=== PATIENT | female | born 1945 | race Caucasian/White ===

== ENCOUNTER 2020-06-19 10:20 | Outpatient (REF) | payer MEDICARE, SELFPAY ==
--- NOTE | 2020-06-19 10:27 | MM_ITS ---
EXAMINATION: MM SCREENING DIGITAL BREAST TOMOSYNTHESIS, BILATERAL CLINICAL INFORMATION: Screening. Asymptomatic. The lifetime risk of breast cancer based on the Tyrer-Cuzick Model is 3%. COMPARISON: Mammography: 12/16/2018, 07/14/2017 TECHNIQUE: Digital breast tomosynthesis is performed in both the craniocaudal and mediolateral oblique views along with computer-aided detection (CAD). Synthesized 2D images are generated from the tomosynthesis. FINDINGS: There are scattered areas of fibroglandular density (ACR BI-RADS breast composition Category b). There are no significant masses, abnormal calcifications, or other abnormalities. The skin contours are smooth. No significant changes. IMPRESSION: No mammographic evidence of malignancy. ASSESSMENT: BI-RADS 1: Negative RECOMMENDATION: Routine annual mammography screening. This patient's information was entered into a reminder system with a target due date for their next mammogram.
== END 2020-06-19 10:21 | disposition home or self-care (01) ==
LOC: HO.MAMMO 10:20
PROVIDERS: PCP Internal Medicine; Visit Provider Internal Medicine
DX: Z12.31 Encounter for screening mammogram for malignant neoplasm of breast (principal)
CPT/HCPCS: 77063; 77067

== ENCOUNTER → 2020-11-21 12:22 | Outpatient (BNVA) | payer MEDICARE, SELFPAY | PROVIDERS: PCP Internal Medicine; Referring Provider Internal Medicine; Visit Provider Internal Medicine Endocrinology, Diabetes & Metabolism | DX: E11.29 Type 2 diabetes mellitus with other diabetic kidney complication (principal); E11.3553 Type 2 diabetes mellitus with stable proliferative diabetic retinopathy, bilateral; E11.42 Type 2 diabetes mellitus with diabetic polyneuropathy; E11.21 Type 2 diabetes mellitus with diabetic nephropathy; Z79.4 Long term (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; R80.9 Proteinuria, unspecified; E78.5 Hyperlipidemia, unspecified; I10 Essential (primary) hypertension | CPT/HCPCS: 82947; 99212 ==

== ENCOUNTER 2020-12-05 09:36 | Outpatient (REF) | payer MEDICARE, SELFPAY ==
[2020-12-05 10:59] LABS: Alanine Aminotransferase 11 U/L (0-31); Albumin Level 4.5 g/dL (3.5-5.0); Alkaline Phosphatase 78 U/L (39-117); Anion Gap 14 (12-20); Aspartate Amino Transferase 17 U/L (5-31); Bilirubin Total 0.5 mg/dL (0.0-1.0); Carbon Dioxide 33 mmol/L (22-29); Chloride 101 mmol/L (96-108); Cholesterol 136 mg/dL; Estimated Glomerular Filt Rate > 60; Glucose Fasting 91 mg/dL (60-99); HDL Cholesterol 63 mg/dL; LDL Cholesterol Calculated 46 mg/dl; Sodium 143 mmol/L (135-145); Total Protein 7.1 g/dL (6.5-8.0); Triglycerides 136 mg/dL
[2020-12-05 11:02] LABS: Blood Urea Nitrogen 19 mg/dL (9-16); Calcium 10.1 mg/dL (8.4-10.2)
[2020-12-05 11:13] LABS: Thyroid Stimulating Hormone 0.65 uIU/mL (0.32-4.0)
[2020-12-05 17:28] LABS: Creatinine Urine 91.22 mg/dL
[2020-12-06 02:37] LABS: LDL Cholesterol Direct 45 mg/dL (<100)
[2020-12-06 04:17] LABS: Vitamin B12 571 pg/mL (200-900)
== END 2020-12-05 09:37 | disposition home or self-care (01) ==
LOC: HO.LAB 09:36
PROVIDERS: PCP Internal Medicine; Visit Provider Internal Medicine Endocrinology, Diabetes & Metabolism
DX: E11.9 Type 2 diabetes mellitus without complications (principal); R80.9 Proteinuria, unspecified; Z79.4 Long term (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
CPT/HCPCS: 36415; 80053; 80061; 82043; 82607; 83721; 84439; 84443

== ENCOUNTER → 2021-07-05 10:52 | Outpatient (BNVA) | payer MEDICARE, SELFPAY | PROVIDERS: PCP Internal Medicine; Visit Provider Nurse Practitioner Gerontology | DX: E11.29 Type 2 diabetes mellitus with other diabetic kidney complication (principal); E11.3553 Type 2 diabetes mellitus with stable proliferative diabetic retinopathy, bilateral; E11.42 Type 2 diabetes mellitus with diabetic polyneuropathy; E11.21 Type 2 diabetes mellitus with diabetic nephropathy; E78.5 Hyperlipidemia, unspecified; I10 Essential (primary) hypertension; R80.9 Proteinuria, unspecified; Z79.4 Long term (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 | CPT/HCPCS: 82947; 83036; 99212 ==

== ENCOUNTER 2022-01-15 07:22 | Outpatient (REF) | payer MEDICARE, SELFPAY ==
[2022-01-15 08:20] LABS: Creatinine Urine 63.91 mg/dL; Microalbum/Creatinine Ratio Ur 45.3 ug/mg cr
[2022-01-15 08:32] LABS: Alanine Aminotransferase 12 U/L (0-31); Albumin Level 4.2 g/dL (3.5-5.0); Alkaline Phosphatase 70 U/L (39-117); Anion Gap 12 (12-20); Aspartate Amino Transferase 18 U/L (5-31); Bilirubin Total 0.5 mg/dL (0.0-1.0); Blood Urea Nitrogen 21 mg/dL (9-16); Calcium 10.1 mg/dL (8.4-10.2); Carbon Dioxide 30 mmol/L (22-29); Chloride 102 mmol/L (96-108); Cholesterol 139 mg/dL; Estimated Glomerular Filt Rate > 60; Glucose Fasting 101 mg/dL (60-99); HDL Cholesterol 60 mg/dL; LDL Cholesterol Calculated 57 mg/dl; Sodium 139 mmol/L (135-145); Total Protein 6.8 g/dL (6.5-8.0); Triglycerides 110 mg/dL
[2022-01-15 08:41] LABS: Free T4 (Free Thyroxine) 1.06 ng/dL (0.71-1.85); Thyroid Stimulating Hormone 1.61 uIU/mL (0.32-4.0); Vitamin D 25-OH Total 33.5 ng/mL (>30)
[2022-01-15 13:49] LABS: Vitamin B12 709 pg/mL (200-900)
[2022-01-16 21:54] LABS: LDL Cholesterol Direct 54 mg/dL (<100)
== END 2022-01-15 07:23 | disposition home or self-care (01) ==
LOC: HO.LAB 07:22
PROVIDERS: PCP Internal Medicine; Visit Provider Nurse Practitioner Gerontology
DX: E11.29 Type 2 diabetes mellitus with other diabetic kidney complication (principal); R80.9 Proteinuria, unspecified; E55.9 Vitamin D deficiency, unspecified; Z79.4 Long term (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
CPT/HCPCS: 36415; 80053; 80061; 82043; 82306; 82607; 83721; 84439; 84443

== ENCOUNTER 2022-04-01 12:00 | Outpatient (REF) | payer MEDICARE, SELFPAY ==
--- NOTE | ~2022-04-01 | MM_ITS ---
EXAMINATION: MM SCREENING DIGITAL BREAST TOMOSYNTHESIS, BILATERAL CLINICAL INFORMATION: Screening. Asymptomatic. The lifetime risk of breast cancer based on the Tyrer-Cuzick Model is 3%. COMPARISON: Mammography: 06/19/2020, 12/16/2018, 07/14/2017 TECHNIQUE: Digital breast tomosynthesis is performed in both the craniocaudal and mediolateral oblique views along with computer-aided detection (CAD). Synthesized 2D images are generated from the tomosynthesis. FINDINGS: There are scattered areas of fibroglandular density (ACR BI-RADS breast composition Category b). There are no significant masses, abnormal calcifications, or other abnormalities. Parenchymal pattern is similar to prior studies. MM/MM tomosynthesis screening BI IMPRESSION: No mammographic evidence of malignancy. ASSESSMENT: BI-RADS 1: Negative RECOMMENDATION: Routine annual mammography screening. This patient's information was entered into a reminder system with a target due date for their next mammogram.
== END 2022-04-01 12:01 | disposition home or self-care (01) ==
LOC: HO.MAMMO 12:00
PROVIDERS: PCP Internal Medicine; Visit Provider Internal Medicine
DX: Z12.31 Encounter for screening mammogram for malignant neoplasm of breast (principal)
CPT/HCPCS: 77063; 77067

== ENCOUNTER 2024-05-18 12:39 | Outpatient (AMB) | payer MEDICARE, SELFPAY ==
--- NOTE | 2024-05-18 12:40 | A.OFFPC_ITS ---
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 Allergies Iodinated Contrast Media [IV DYE, IODINE CONTAINING] Allergy (Intermediate, Unverified 05/18/24 12:43) DYSPNEA IV CONTRAST Allergy (Unknown, Uncoded 05/18/24 12:43) SHORTNESS OF BREATH WHEN IV DYE WAS GIVEN Medication List - Last Reconciled 05/18/24 by Harshad Castle MD aspirin (Adult Low Dose Aspirin) 81 mg PO DAILY cyanocobalamin (vitamin B-12) 100 mcg PO QAM dulaglutide (Trulicity) 0.75 mg (0.5 mL) subcut QWEEK 90 days gabapentin 100 mg PO DAILY insulin glargine (Lantus Solostar U-100 Insulin) 7 units (0.07 mL) subcut DAILY 90 days lisinopril 10 mg PO DAILY 90 days metformin ER 1,000 mg (2 x 500 mg) PO BID omeprazole 20 mg PO DAILY pen needle, diabetic (BD Jennifer 2nd Gen Pen Needle) Once a day pioglitazone 30 mg PO DAILY 90 days rosuvastatin 40 mg PO DAILY 90 days Tobacco use date assessed: 05/18/24 Fall risk assessment: No Falls in past year Last assessed Fall Risk: 05/18/24 Dental Screening Dental Screen Date: 05/18/24 Did you have a dental visit in the last 12 months?: Yes Did you have a dental problem in the last 6 months where you did not have access to dental care?: No Was dental information given to patient?: Patient has dentist 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 and pioglitazone 30 mg daily Lipid disorder: Treated with a rosuvastatin 40 mg Blood pressure is stable with lisinopril 10 mg Diabetic neuropathy treated with gabapentin 100 mg as needed Due for labs Mammogram was February of this year at [facility] as per patient it was normal She is due for colonoscopy, I have placed a referral to Gastroenterology Complaining of bilateral shoulder pain which is chronic for the patient She is requesting orthopedic referral which was placed as well All medication refills sent Lab order placed to be done fasting Eye exam was today Foot exam was February of this year Patient is to return in 3 months for follow-up appointment [facility] Medical History Diabetic nephropathy associated with type 2 diabetes mellitus Diabetic polyneuropathy associated with type 2 diabetes mellitus Diabetes type 2, controlled Proliferative diabetic retinopathy [facility]FP (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 Diabetes type 2, uncontrolled Dyslipidemia Hypertension Surgical History Hx of cholecystectomy Hx of hysterectomy Hx of carpal tunnel repair Hx of tonsillectomy Family History Son Family history of thyroid problem Mother No problems noted. Father No problems noted. Social History Household Members: Spouse Housing: Apartment Alcohol intake: never Patient Tobacco Use Status: Former Tobacco user Current occupational status: unemployed Cognitive needs: No Hearing needs: Yes Vision needs: Yes Questionnaire PHQ-9 Over the last 2 weeks, how often have you been bothered by any of the following problems? 1. Little interest or pleasure in doing things: several days 2. Feeling down, depressed, or hopeless: several days 3. Trouble falling or staying asleep, or sleeping too much: not at all 4. Feeling tired or having little energy: several days 5. Poor appetite or overeating: several days 6. Feeling bad about yourself - or that you are a failure or have let yourself or your family down: not at all 7. Trouble concentrating on things, such as reading the newspaper or watching television: not at all 8. Moving or speaking so slowly that other people could have noticed. Or the opposite - being so fidgety or restless that you have been moving around a lot more than usual: not at all 9. Thoughts that you would be better off or of hurting yourself in some way: not at all Total score: 4 Depression Screening Interpretation: Negative Depression Screening Done: Yes 88138 - PHQ-9 Billing: Yes Source: Developed by Drs. Jorge Guzman, Madina Hinojosa, Luke Browning and colleagues, with an educational lissy from [employer]. Thrive Questionnaire Date Thrive assessed: 05/18/24 I am a: Patient What is your living situation today?: I have a steady place to live Within the past 12 months, did the food you bought not last and you didn't have the money to get more?: Never true Within the past 12 months, did you worry whether your food would run out before you got money to buy more?: Never true Do you have trouble paying for medicines?: No Do you have trouble getting transportation to medical appointments?: No Do you have trouble paying your heating and electricity bill?: No Do you have trouble taking care of your child, family member or friend?: No Do you have trouble with day-to-day activities such as bathing, preparing meals, shopping, managing finances, etc.?: I choose not to answer this question Are you interested in more education?: I choose not to answer this question Please select the resources that you would like help with: Care for elder or disabled Currently or been in a relationship where the following occur: No concerns reported THRIVE Score: 0 AUDIT C Alcohol Use Questionnaire (AUDIT-C) 1. How often do you have a drink containing alcohol?: Never Total Score: 0 JOEY-7 AMB Questionnaire JOEY-7 Date JOEY - 7 assessed: 05/18/24 Feeling nervous, anxious, or on edge: 1 = Several days Not being able to stop or control worryin = Several days Worrying too much about different things: 1 = Several days Trouble relaxin = Several days Being so restless that it is hard to sit still: 0 = Not at all Becoming easily annoyed or irritable: 0 = Not at all Feeling afraid as if something awful might happen: 0 = Not at all Total JOEY-7 score (0-4 normal; 5-9 mild; 10-14 moderate; 15-21 severe): 4 Source: Developed by Drs. Jorge Guzman, Madina Hinojosa, Luke Browning and colleagues, with an educational lissy from [employer]. JEOY-7 Assessment Billing JOEY-7 Assessment Tool: JOEY-7 Assessment 03175 Review of Systems Const Denies chills, Denies fever(s) and Denies headache(s) ENT Denies headache(s), Denies nasal discharge, Denies nasal obstruction, Denies odynophagia and Denies sinus pain Card Denies chest pain at rest and Denies chest pain with activity Resp Denies cough and Denies hemoptysis GI Denies diarrhea, Denies odynophagia, Denies vomiting and Denies hematemesis Reports as per HPI Musc Denies abnormal gait Skin/Breast Reports as per HPI Neuro Denies Neuro-related abnormal movements, Denies Abnormal speech present, Denies abnormal gait and Denies headache(s) Psych Denies mood swings and Denies paranoia Endo Reports as per HPI Khurram/Lymph Reports as per HPI Aller/Immun Reports as per HPI Physical exam (Primary Care) Vital Signs: Last Vital Signs Pulse 78 05/18/24 12:43 BP 130/80 05/18/24 12:43 Pulse Ox 98 05/18/24 12:43 Oxygen Delivery Method Room Air 05/18/24 12:43 Tobacco/Smoking Status: Tobacco use Status Tobacco use date assessed 05/18/24 05/18/24 12:47 Patient Tobacco Use Status Former Tobacco user 05/18/24 12:42 PHQ-9: PHQ-9 Score PHQ-9: Total score 4 05/18/24 13:15 Depression Screening Interpretation: Negative Thrive Assessment: Date of Thrive Assessment Date Thrive assessed 05/18/24 05/18/24 12:47 Currently or been in a relationship where the following occur: No concerns reported Const General: cooperative, comfortable and no acute distress Orientation/consciousness: patient oriented x3 HENMT Head: Yes normocephalic and Yes atraumatic Eyes General: appearance normal, both eyes and all related structures Pupils: Equal, round and reactive pupils present EOM: EOMs intact bilaterally Neck Neck: Yes supple and No lymphadenopathy Thyroid: Thyroid normal Lymphatic: no lymphadenopathy noted Chest Breast/axilla palpation: normal palpation of the breasts Resp Effort & Inspection: normal respiratory effort and able to speak in complete sentences Auscultation: clear to auscultation bilaterally Cardio Heart sounds: S1 normal heart sound present and S2 normal heart sound present GI Palpation (GI): Soft to palpation and nontender Auscultation: normal bowel sounds General: Yes no CVA tenderness Back/Spine/Pelvis Back: no CVA tenderness Skin General skin exam: elasticity normal and turgor normal Neuro General: patient oriented x3 and gait normal Cranial nerves: Yes Equal, round and reactive pupils present Speech: No Abnormal speech present Coordination: Romberg test negative Extrem Other: Limited range of motion of both shoulders General: No edema Assessment and Plan Assessment & Plan (1) Establishing care with new doctor, encounter for: Code(s): Z76.89 - Persons encountering health services in other specified circumstances (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: Code(s): Z79.4 - [facility] (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 (3) Diabetes type 2, controlled: Code(s): E11.9 - Type 2 diabetes mellitus without complications Qualifiers: Diabetes mellitus complication detail: with microalbuminuria Diabetes mellitus complication status: with kidney complications Diabetes mellitus 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 insulin use: with residential use Qualified Code(s): E11.29 - Type 2 d iabetes mellitus with other diabetic kidney complication; R80.9 - Proteinuria, unspecified; Z79.4 - 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 (4) Bilateral shoulder pain: Code(s): M25.511 - Pain in right shoulder; M25.512 - Pain in left shoulder Qualifiers: Chronicity: chronic Qualified Code(s): M25.511 - Pain in right shoulder; M25.512 - Pain in left shoulder; G89.29 - Other chronic pain (5) Diabetic polyneuropathy associated with type 2 diabetes mellitus: Code(s): E11.42 - Type 2 diabetes mellitus with diabetic polyneuropathy (6) Diabetic nephropathy associated with type 2 diabetes mellitus: Code(s): E11.21 - Type 2 diabetes mellitus with diabetic nephropathy (7) Hypertension: Code(s): I10 - Essential (primary) hypertension Qualifiers: Hypertension type: essential hypertension Qualified Code(s): I10 - Essential (primary) hypertension (8) Dyslipidemia: Code(s): E78.5 - Hyperlipidemia, unspecified (9) Colon cancer screening: Code(s): Z12.11 - Encounter for screening for malignant neoplasm of colon Plan Patient is a 78-year-old female came in today for establish with her son Patient is diabetic and is on Trulicity and long-acting insulin along with metformin 1 g b.i.d. and pioglitazone 30 mg daily Lipid disorder: Treated with a rosuvastatin 40 mg Blood pressure is stable with lisinopril 10 mg Diabetic neuropathy treated with gabapentin 100 mg as needed Patient also have a diabetic nephropathy, labs are needed to see how bad Due for labs Mammogram was February of this year at [facility] as per patient it was normal She is due for colonoscopy, I have placed a referral to Gastroenterology Complaining of bilateral shoulder pain which is chronic for the patient She is requesting orthopedic referral which was placed as well All medication refills sent Lab order placed to be done fasting Eye exam was today Foot exam was February of this year Patient is to return in 3 months for follow-up appointment 60 minute visit, [id number] with the patient, examination, medication refills Lab order Documentation, coordination of care Orders: Orders Comprehensive [place]. 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 Lipid Panel Today E11.21 - Type 2 diabetes mellitus with diabetic nephropathy, E11.29 - Type 2 diabetes mellitus with other diabetic kidney complication, E11.42 - Type 2 diabetes mellitus with diabetic polyneuropathy, E78.5 - Hyperlipidemia, unspecified, I10 - Essential (primary) hypertension, R80.9 - Proteinuria, unspecified, Z79.4 - [facility] (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 Vitamin D 25-OH (D2 and D3) Today E11.21 - Type 2 diabetes mellitus with diabetic nephropathy, E11.29 - Type 2 diabetes mellitus with other diabetic kidney complication, E11.42 - Type 2 diabetes mellitus with diabetic polyneuropathy, E78.5 - Hyperlipidemia, unspecified, I10 - Essential (primary) hypertension, R80.9 - Proteinuria, unspecified, Z79.4 - 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 Complete Blood Count Auto Diff Today E11.21 - Type 2 diabetes mellitus with diabetic nephropathy, E11.29 - Type 2 diabetes mellitus with other diabetic kidney complication, E11.42 - Type 2 diabetes mellitus with diabetic polyneuropathy, E78.5 - Hyperlipidemia, unspecified, I10 - Essential (primary) hypertension, R80.9 - Proteinuria, unspecified, Z79.4 - [facility] (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 Vitamin B12 Today E11.21 - Type 2 diabetes mellitus with diabetic nephropathy, E11.29 - Type 2 diabetes mellitus with other diabetic kidney complication, E11.42 - Type 2 diabetes mellitus with diabetic polyneuropathy, E78.5 - Hyperl ipidemia, unspecified, I10 - Essential (primary) hypertension, R80.9 - Proteinuria, unspecified, Z79.4 - [facility] (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 TSH reflex Free T4 Today E11.21 - Type 2 diabetes mellitus with diabetic nephropathy, E11.29 - Type 2 diabetes mellitus with other diabetic kidney complication, E11.42 - Type 2 diabetes mellitus with diabetic polyneuropathy, E78.5 - Hyperlipidemia, unspecified, I10 - Essential (primary) hypertension, R80.9 - Proteinuria, unspecified, Z79.4 - 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 Hemoglobin A1c Today E11.21 - Type 2 diabetes mellitus with diabetic nephropathy, E11.29 - Type 2 diabetes mellitus with other diabetic kidney complication, E11.42 - Type 2 diabetes mellitus with diabetic polyneuropathy, E78.5 - Hyperlipidemia, unspecified, I10 - Essential (primary) hypertension, R80.9 - Proteinuria, unspecified, Z79.4 - 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 Microalbumin, Random (w Creat) Today E11.21 - Type 2 diabetes mellitus with diabetic nephropathy, E11.29 - Type 2 diabetes mellitus with other diabetic kidney complication, E11.42 - Type 2 diabetes mellitus with diabetic poly neuropathy, E78.5 - Hyperlipidemia, unspecified, I10 - Essential (primary) hypertension, R80.9 - Proteinuria, unspecified, Z79.4 - 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 Referrals Orthopedics Referral M25.511 - Pain in right shoulder, M25.512 - Pain in left shoulder Gastroenterology Referral Z12.11 - Encounter for screening for malignant neoplasm of colon Medications: Refilled pioglitazone 30 mg PO DAILY 90 tabs 2RF 90 days E11.65 - Type 2 diabetes mellitus with hyperglycemia cyanocobalamin (vitamin B-12) 100 mcg PO QAM 90 tabs 3RF E11.65 - Type 2 diabetes mellitus with hyperglycemia dulaglutide (Trulicity) 0.75 mg (0.5 mL) subcut QWEEK 6.5 mL 1RF 90 days E11.29 - Type 2 diabetes mellitus with other diabetic kidney complication, R80.9 - Proteinuria, unspecified, Z79.4 - [facility] (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 insulin glargine (Lantus Solostar U-100 Insulin) 7 units (0.07 mL) subcut DAILY 15 mL 0RF 90 days E11.29 - Type 2 diabetes mellitus with other diabetic kidney complication, R80.9 - Proteinuria, unspecified, Z79.4 - 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 lisinopril 10 mg PO DAILY 90 tabs 3RF 90 days I10 - Essential (primary) hypertension metformin ER 1,000 mg (2 x 500 mg) PO BID 360 tabs 2RF E11.65 - Type 2 diabetes mellitus with hyperglycemia rosuvastatin 40 mg PO DAILY 90 tabs 0RF 90 days E78.5 - Hyperlipidemia, unspecified Coding Level of Care Code New Pt Level 5 (62909) Diagnoses Establishing care with new doctor, encounter for Z76.89 [facility] (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 Z79.4 Controlled type 2 diabetes mellitus with microalbuminuria, with long-term curre nt use of insulin E11.29; R80.9; Z79.4 Diabetes mellitus complication detail: with microalbuminuria Diabetes mellitus complication status: with kidney complications Diabetes mellitus 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
[2024-05-18 12:43] VITALS: BP 130/80; PULSE 78; O2SAT 98
== END 2024-05-18 13:11 | disposition home or self-care (01) ==
PROVIDERS: PCP Internal Medicine; Visit Provider Internal Medicine
DX: E11.29 Type 2 diabetes mellitus with other diabetic kidney complication (principal); Z79.4 Long term (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; E11.42 Type 2 diabetes mellitus with diabetic polyneuropathy; E11.21 Type 2 diabetes mellitus with diabetic nephropathy; Z76.89 Persons encountering health services in other specified circumstances; R80.9 Proteinuria, unspecified; M25.511 Pain in right shoulder; M25.512 Pain in left shoulder; G89.29 Other chronic pain; I10 Essential (primary) hypertension; E78.5 Hyperlipidemia, unspecified; Z12.11 Encounter for screening for malignant neoplasm of colon

== ENCOUNTER → 2024-05-18 12:39 | Outpatient (BNVA) | payer MEDICARE, SELFPAY | PROVIDERS: PCP Internal Medicine; Visit Provider Internal Medicine | DX: E11.29 Type 2 diabetes mellitus with other diabetic kidney complication (principal); E11.42 Type 2 diabetes mellitus with diabetic polyneuropathy; E11.21 Type 2 diabetes mellitus with diabetic nephropathy; E78.5 Hyperlipidemia, unspecified; I10 Essential (primary) hypertension; M25.511 Pain in right shoulder; M25.512 Pain in left shoulder; G89.29 Other chronic pain; R80.9 Proteinuria, unspecified; Z79.4 Long term (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 | CPT/HCPCS: 96127; 99202 ==

== ENCOUNTER 2024-06-09 10:51 | Outpatient (REF) | payer MEDICARE, SELFPAY | END 2024-06-09 10:52 | disposition home or self-care (01) | LOC: HO.HOSX 10:51 | PROVIDERS: Visit Provider Physician Assistant | DX: M25.512 Pain in left shoulder (principal); M25.511 Pain in right shoulder; M19.011 Primary osteoarthritis, right shoulder; M19.012 Primary osteoarthritis, left shoulder | CPT/HCPCS: 73030; 99202 ==

== ENCOUNTER 2024-06-09 13:31 | Outpatient (AMB) | payer MEDICARE, SELFPAY ==
--- NOTE | 2024-06-09 13:57 | MHC.OFFVIS ---
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 Patient reports her pain presented about 3 months ago when she was reaching for an item. Her pain is worse on her right shoulder. Her pain radiates from her shoulder up to her neck as well as down her arm. Limited ROM. Denies numbness or tingling. No previous tx. Chief Supply Chain Officer Required: Yes Chief Supply Chain Officer Services: Chief Supply Chain Officer Offered & Declined Accompanied by: Family/Other Allergies Iodinated Contrast Media [IV DYE, IODINE CONTAINING] Allergy (Intermediate, Unverified 05/18/24 12:43) DYSPNEA IV CONTRAST Allergy (Unknown, Uncoded 05/18/24 12:43) SHORTNESS OF BREATH WHEN IV DYE WAS GIVEN Medication List - Last Reconciled 06/09/24 by Mike Silva PA-C aspirin (Adult Low Dose Aspirin) 81 mg PO DAILY cyanocobalamin (vitamin B-12) 100 mcg PO QAM dulaglutide (Trulicity) 0.75 mg (0.5 mL) subcut QWEEK 90 days gabapentin 100 mg PO DAILY insulin glargine (Lantus Solostar U-100 Insulin) 7 units (0.07 mL) subcut DAILY 90 days lisinopril 10 mg PO DAILY 90 days metformin ER 1,000 mg (2 x 500 mg) PO BID omeprazole 20 mg PO DAILY pen needle, diabetic (BD Jennifer 2nd Gen Pen Needle) Once a day pioglitazone 30 mg PO DAILY 90 days rosuvastatin 40 mg PO DAILY 90 days HPI 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 She states she has limited ROM and pain in her bilateral shoulders that is worse on her right shoulder. Her pain radiates to her neck as well as down to her arm. She denies any numbness or tingling. She has not had any treatment in the past. She has a history of diabetes. [facility], LAT[facility] Medical History (Updated 06/09/24 @ 14:11 by Mike Silva PA-C) Diabetic nephropathy associated with type 2 diabetes mellitus Diabetic polyneuropathy associated with type 2 diabetes mellitus Diabetes type 2, controlled Proliferative diabetic retinopathy assisted (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 Diabetes type 2, uncontrolled Dyslipidemia Hypertension Surgical History (Updated 06/09/24 @ 14:01 by Corine John Cata) Hx of cholecystectomy Hx of hysterectomy Hx of carpal tunnel repair Hx of tonsillectomy Family History Son Family history of thyroid problem Mother No problems noted. Father No problems noted. Social History Household Members: Spouse Housing: Apartment Alcohol intake: never Patient Tobacco Use Status: Former Tobacco user Current occupational status: unemployed Cognitive needs: No Hearing needs: Yes Vision needs: Yes Review of Systems Const All systems reviewed & are unremarkable except as noted in HPI and below Physical Exam Vital Signs: BMI result Body Mass Index 25.7 Const General: cooperative, healthy appearing, comfortable, no acute distress, well developed and alert Orientation/consciousness: patient oriented x3 HEENT Head: Yes normal to inspection, Yes normocephalic and Yes atraumatic Eyes General: appearance normal, both eyes and all related structures Resp Effort & Inspection: normal respiratory effort and able to speak in complete sentences Cardio Rate: regular rate Peripheral pulses: Peripheral pulses 2+ throughout GI Palpation (GI): Soft to palpation Skin Lesions: no lesions Rashes: no rashes Neuro General: patient oriented x3 Extrem Other: Left shoulder: Normal to inspection. Tenderness over the bicipital groove and along the deltoid region of the shoulder. Forward flexion to 175, external rotation to 90, internal rotation to S1. 5/5 RTC strength. Negative Bernstein and cross body abduction. NVI. Right shoulder: Normal to inspection. Tenderness over the bicipital groove and along the deltoid region of the shoulder. Forward flexion to 90, external rotation to 90, internal rotation to S1. 5/5 RTC strength. Negative Bernstein and cross body abduction. NVI. Results Reviewed Results Reviewed: X-rays of the bilateral shoulder obtained in the office today are significant for glenohumeral joint arthritis and AC joint arthritis. Assessment & Plan Assessment & Plan (1) Osteoarthritis of shoulders, bilateral: Code(s): M19.011 - Primary osteoarthritis, right shoulder; M19.012 - Primary osteoarthritis, left shoulder Category: Medical Plan We discussed options which include PT, NSAIDs and injections. The patient will defer on the injection today and proceed with PT and NSAIDs. If symptoms persist, she will contact me for an injection, otherwise, PRN. Orders: Orders XR shoulder LT min 2V Today M25.512 - Pain in left shoulder PT Evaluation and Treatment Today M19.011 - Primary osteoarthritis, right shoulder, M19.012 - Primary osteoarthritis, left shoulder XR shoulder RT min 2V Today M25.511 - Pain in right shoulder Patient Instructions: Scribed for Mike Silva PA-C, by Phil Gomez medical technologist hematology, on 06/09/2024 at 2:15 PM EST.? I, iMke Silva PA-C, have personally reviewed and agree with the information entered by the scribe. Coding Level of Care Code New Pt Level 3 (18142) Complex EM visit Add On G2211 Diagnoses Osteoarthritis of shoulders, bilateral M19.011; M19.012
[2024-06-09 14:01] VITALS: BMI 25.7
== END 2024-06-09 15:04 | disposition home or self-care (01) ==
PROVIDERS: PCP Internal Medicine; Visit Provider Physician Assistant
DX: M19.011 Primary osteoarthritis, right shoulder (principal); M19.012 Primary osteoarthritis, left shoulder
CPT/HCPCS: 99203; G2211

== ENCOUNTER 2024-08-11 09:05 | Outpatient (REF) | payer MEDICARE, SELFPAY ==
[2024-08-11 13:20] LABS: MANUAL DIFF FLAG NO
[2024-08-11 13:26] LABS: Basophils Percent Auto 0.3 % (0-2); Eosinophils Percent Auto 0.5 % (0-4); Hematocrit 34.9 % (37.0-47.0); Hemoglobin 11.3 g/dl (12.0-16.0); Imm Gran Abs Auto 0.02 X10*3/uL (0.00-0.03); Imm Gran Pct Auto 0.3 % (0.0-0.4); Lymphocytes Absolute Auto 1.7 X10*3/uL (1.2-4.9); Lymphocytes Percent Auto 22.3 % (20-40); Mean Corpuscular HGB Conc 32.4 g/dl (31.0-35.0); Mean Corpuscular Hemoglobin 29.6 pg (27.0-33.0); Mean Corpuscular Volume 91.4 fL (80.0-98.0); Mean Platelet Volume 11.3 fL (9.4-12.3); Monocytes Absolute Auto 0.7 X10*3/uL (0.1-1.2); Monocytes Percent Auto 9.5 % (2-11); Neutrophils Percent Auto 67.1 % (45-73); Platelet Count 170 X10*3/uL (160-400); Red Blood Count 3.82 X10*6/uL (4.20-5.50); Red Cell Distribution Width 14.1 % (11.0-16.0); White Blood Count 7.5 X10*3/uL (4.8-10.8)
[2024-08-11 13:33] LABS: Estimated Average Glucose 154 mg/dL; Hemoglobin A1C 144.7249 umol/L; Total Hemoglobin (HGBA1C) 2744.0997 umol/L
[2024-08-11 13:55] LABS: Alanine Aminotransferase 10 U/L (0-31); Albumin Level 4.3 g/dL (3.5-5.0); Alkaline Phosphatase 80 U/L (39-117); Anion Gap 14 (12-20); Aspartate Amino Transferase 21 U/L (5-31); Bilirubin Total 0.5 mg/dL (0.0-1.0); Blood Urea Nitrogen 23 mg/dL (9-16); Calcium 10.8 mg/dL (8.4-10.2); Carbon Dioxide 30 mmol/L (22-29); Chloride 99 mmol/L (96-108); Cholesterol 141 mg/dL (<200); Estimated Glomerular Filt Rate > 60; Glucose Fasting 145 mg/dL (60-99); HDL Cholesterol 62 mg/dL (>40); LDL Cholesterol Calculated 54 mg/dL (<100); Potassium 4.3 mmol/L (3.3-5.1); Sodium 139 mmol/L (135-145); Total Protein 7.7 g/dL (6.5-8.0); Triglycerides 126 mg/dL (<150)
[2024-08-11 14:07] LABS: Vitamin B12 943 pg/mL (200-900)
[2024-08-11 14:12] LABS: TSH reflex Free T4 0.69 uIU/mL (0.32-4.0)
[2024-08-11 14:12] LABS: Creatinine Urine 86.03 mg/dL; Microalbum/Creatinine Ratio Ur 97.6 ug/mg cr (<30)
[2024-08-15 14:58] LABS: Vitamin D 25-OH, D2 <4 ng/mL; Vitamin D 25-OH, D3 44 ng/mL; Vitamin D 25-OH, Total 44 ng/mL (30-100)
== END 2024-08-11 09:06 | disposition home or self-care (01) ==
LOC: HO.HMGCLDS 09:05
PROVIDERS: PCP Internal Medicine; Visit Provider Internal Medicine
DX: Z79.4 Long term (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 (principal); E11.29 Type 2 diabetes mellitus with other diabetic kidney complication; R80.9 Proteinuria, unspecified; E11.42 Type 2 diabetes mellitus with diabetic polyneuropathy; E11.21 Type 2 diabetes mellitus with diabetic nephropathy; I10 Essential (primary) hypertension; E78.5 Hyperlipidemia, unspecified
CPT/HCPCS: 36415; 80053; 80061; 82043; 82306; 82570; 82607; 83036; 84443; 85025

== ENCOUNTER 2024-08-16 12:04 | Outpatient (AMB) | payer MEDICARE, MEDICAID, SELFPAY ==
[2024-08-16 12:21] VITALS: BP 132/74; PULSE 100; O2SAT 92; BMI 25.1
--- NOTE | 2024-08-16 12:21 | A.OFFPC_ITS ---
Vital Signs 08/16/24 12:21 Height 5 ft 1 in Weight 133 lb BMI 25.1 BP 132/74 Blood Pressure Location Rt brachial Position Sitting Pulse 100 Pulse Source Pulse Oximeter Pulse Oximetry (%) 92 Oxygen Delivery Method Room Air Intake Visit Reasons: follow up Allergies Iodinated Contrast Media [IV DYE, IODINE CONTAINING] Allergy (Intermediate, Unverified 05/18/24 12:43) DYSPNEA IV CONTRAST Allergy (Unknown, Uncoded 05/18/24 12:43) SHORTNESS OF BREATH WHEN IV DYE WAS GIVEN Medication List - Last Reconciled 08/16/24 by Harshad Castle MD aspirin (Adult Low Dose Aspirin) 81 mg PO DAILY cyanocobalamin (vitamin B-12) 100 mcg PO QAM dulaglutide (Trulicity) 0.75 mg (0.5 mL) subcut QWEEK 90 days gabapentin 100 mg PO DAILY lisinopril 10 mg PO DAILY 90 days metformin ER 1,000 mg (2 x 500 mg) PO BID omeprazole 20 mg PO DAILY pen needle, diabetic (BD Jennifer 2nd Gen Pen Needle) Once a day pioglitazone 30 mg PO DAILY 90 days rosuvastatin 40 mg PO DAILY 90 days Tobacco use date assessed: 05/18/24 Dental Screening Dental Screen Date: 05/18/24 HPI follow up HPI Details Chief Complaint Patient presenting for follow-up with concerns about chronic cough and managing current medication regimen. Assessment and Plan 78-year-old female with a history of typ e 2 diabetes mellitus and essential h ypertension presenting for a follow-up visit primarily to address concerns about her chronic cough. The patient reports an improvement in cough symptoms compared to two days ago. Additionally, there is ongoing management of her chronic conditions including diabetes and hypertension. She has a known history of hemorrhoids and an elevated vitamin B12 level due to excessive supplementation. Her current medications are confirmed, and adjustments are considered based on recent lab evaluations and symptoms. She denies shortness of breath despite reported wheezing. 1. Chronic Cough The patient reports improved symptoms with her cough being better than two days prior. No further intervention is needed at this time, but observation is advised. 2. Essential Hypertension The patient is currently taking Lisinopril 10 mg daily. No changes are recommended during this visit. 3. Hemorrhoids The patient reports having hemorrhoids. No new or additional treatments were discussed or deemed necessary at this visit. 4. Type 2 Diabetes Mellitus Current regimen includes Trulicity, Metformin, and Pioglitazone. Insulin has been discontinued, and the patient's blood sugar level is at 7.0, which is considered satisfactory. 5. Hyperlipidemia The patient is on Rosuvastatin for management of her lipid levels. No changes to this regimen were discussed. Diagnostic results - Lab Results: Blood sugar level is 7.0; stable and within target range for diabetes management. Problem List - Essential Hypertension - Type 2 Diabetes Mellitus - Hemorrhoids - Hyperlipidemia - Vitamin B12 Excess Medications - Trulicity ? for Type 2 Diabetes Mellit us - Gabapentin 100 mg at bedtime ? for ner ve pain - Lisinopril 10 mg ? for Essential Hyper tension - Metformin ? for Type 2 Diabetes Mellit us (2 tablets, twice daily) - Pioglitazone ? for Type 2 Diabetes Comfort litus - Omeprazole ? for gastroesophageal refl ux - Rosuvastatin ? for Hyperlipidemia - Vitamin D ? for Vitamin D maintenance Health Maintenance - Vitamin B12 supplementation reduced to twice a week to prevent excess. - Continuing patient education on the im portance of adherence to medication reg imens. [place] of Care - Coordination with the pharmacy for pre scription refills on current medications, excluding insulin which has been discontinued. - Discussion regarding involvement of a utility tech for foot care due to diabetes was acknowledged but requires further scheduling. Patient Instructions - Reduce Vitamin B12 intake to twice a w [place]. - Monitor any changes in the cough and s [place] medical advice if it worsens. - Continue with current medications as p rescribed. - Maintain follow-up in three months; en sure the August 19 appointment is canceled. - Seek podiatry consultation as previous ly arranged. Follow-up 3 months [facility] Medical History Diabetic nephropathy associated with type 2 diabetes mellitus Diabetic polyneuropathy associated with type 2 diabetes mellitus Diabetes type 2, controlled Proliferative diabetic retinopathy detention (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 Diabetes type 2, uncontrolled Dyslipidemia Hypertension Surgical History Hx of cholecystectomy Hx of hysterectomy Hx of carpal tunnel repair Hx of tonsillectomy Family History Son Family history of thyroid problem Mother No problems noted. Father No problems noted. Social History Household Members: Spouse Housing: Apartment Alcohol intake: never Patient Tobacco Use Status: Former Tobacco user Current occupational status: unemployed Cognitive needs: No Hearing needs: Yes Vision needs: Yes Questionnaire Thrive Questionnaire Date Thrive assessed: 05/18/24 I am a: Patient What is your living situation today?: I have a steady place to live Within the past 12 months, did the food you bought not last and you didn't have the money to get more?: Never true Within the past 12 months, did you worry whether your food would run out before you got money to buy more?: Never true Do you have trouble paying for medicines?: No Do you have trouble getting transportation to medical appointments?: No Do you have trouble paying your heating and electricity bill?: No Do you have trouble taking care of your child, family member or friend?: No Do you have trouble with day-to-day activities such as bathing, preparing meals, shopping, managing finances, etc.?: I choose not to answer this question Are you currently unemployed and looking for a job?: No Are you interested in more education?: I choose not to answer this question Please select the resources that you would like help with: Care for elder or disabled Currently or been in a relationship where the following occur: No concerns reported THRIVE Score: 0 JOEY-7 AMB Questionnaire JOEY-7 Date JOEY - 7 assessed: 05/18/24 Source: Developed by Drs. Jorge Guzman, Madina Hinojosa, Luke Browning and colleagues, with an educational lissy from [employer]. Review of Systems Const Denies chills and Denies fever(s) ENT Denies epistaxis and Denies nasal discharge Card Denies chest pain Resp Denies hemoptysis GI Denies diarrhea and Denies nausea Skin/Breast Denies rash Neuro Reports no additional complaints Psych Reports no additional complaints Endo Reports no additional complaints Physical exam (Primary Care) Vital Signs: Last Vital Signs Pulse 100 08/16/24 12:21 BP 132/74 08/16/24 12:21 Pulse Ox 92 08/16/24 12:21 Oxygen Delivery Method Room Air 08/16/24 12:21 BMI result Body Mass Index 25.1 Tobacco/Smoking Status: Tobacco use Status Tobacco use date assessed 05/18/24 08/16/24 12:21 Patient Tobacco Use Status Former Tobacco user 08/16/24 12:21 Thrive Assessment: Date of Thrive Assessment Date Thrive assessed 05/18/24 08/16/24 12:21 Currently or been in a relationship where the following occur: No concerns reported Const General: cooperative, comfortable and no acute distress Orientation/consciousness: patient oriented x3 HENMT Head: Yes normocephalic Eyes General: appearance normal, both eyes and all related structures Neck Neck: Yes supple Resp Effort & Inspection: normal respiratory effort, no cough and no stridor Cardio Rhythm: regular rhythm Heart sounds: S1 normal heart sound present and S2 normal heart sound present Skin General skin exam: turgor normal Neuro General: patient oriented x3, tone normal and moves all extremities Extrem Right lower extremity: no edema Left lower extremity: no edema Coding Level of Care Code Est Pt Level 4 (74991) Complex EM visit Add On G2211 Diagnoses Controlled type 2 diabetes mellitus with microalbuminuria, with long-term current use of insulin E11.29; R80.9; Z79.4 Diabetes mellitus complication detail: with microalbuminuria Diabetes mellitus complication status: with kidney complications Diabetes mellitus terminal clerk insulin use: with terminal clerk use Diabetic polyneuropathy associated with type 2 diabetes mellitus E11.42 Diabetic nephropathy associated with type 2 diabetes mellitus E11.21 Primary osteoarthritis of both shoulders M19.011; M19.012 Osteoarthritis type: primary Dyslipidemia E78.5 Essential hypertension I10 Hypertension type: essential hypertension Assessment & Plan Assessment & Plan (1) Diabetes type 2, controlled: Code(s): E11.9 - Type 2 diabetes mellitus without complications Category: Medical Qualifiers: Diabetes mellitus complication detail: with microalbuminuria Diabetes mellitus complication status: with kidney complications Diabetes mellitus terminal clerk insulin use: with fci use Qualified Code(s): E11.29 - Type 2 diabetes mellitus with other diabetic kidney complication; R80.9 - Proteinuria, unspecified; Z79.4 - detention (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 (2) Diabetic polyneuropathy associated with type 2 diabetes mellitus: Code(s): E11.42 - Type 2 diabetes mellitus with diabetic polyneuropathy Category: Medical (3) Diabetic nephropathy associated with type 2 diabetes mellitus: Code(s): E11.21 - Type 2 diabetes mellitus with diabetic nephropathy Category: Medical (4) Osteoarthritis of shoulders, bilateral: Code(s): M19.011 - Primary osteoarthritis, right shoulder; M19.012 - Primary osteoarthritis, left shoulder Category: Medical Qualifiers: Osteoarthritis type: primary Qualified Code(s): M19.011 - Primary osteoarthritis, right shoulder; M19.012 - Primary osteoarthritis, left shoulder (5) Dyslipidemia: Code(s): E78.5 - Hyperlipidemia, unspecified Category: Medical (6) Hypertension: Code(s): I10 - Essential (primary) hypertension Category: Medical Qualifiers: Hypertension type: essential hypertension Qualified Code(s): I10 - Essential (primary) hypertension Plan Chief Complaint Patient presenting for follow-up with concerns about chronic cough and managing current medication regimen. Assessment and Plan 78-year-old female with a history of type 2 diabetes mellitus and essential hypertension presenting for a follow-up visit primarily to address concerns about her chronic cough. The patient reports an improvement in cough symptoms compared to two days ago. Additionally, there is ongoing management of her chronic conditions including diabetes and hypertension. She has a known history of hemorrhoids and an elevated vitamin B12 level due to excessive supplementation. Her current medications are confirmed, and adjustments are considered based on recent lab evaluations and symptoms. She denies shortness of breath despite reported wheezing. 1. Chronic Cough The patient reports improved symptoms with her cough being better than two days prior. No further intervention is needed at this time, but observation is advised. 2. Essential Hypertension The patient is currently taking Lisinopril 10 mg daily. No changes are rec ommended during this visit. 3. Hemorrhoids The patient reports having hemorrhoids. No new or additional treatments were discussed or deemed necessary at this visit. 4. Type 2 Diabetes Mellitus Current regimen includes Trulicity, Metformin, and Pioglitazone. Insulin has been discontinued, and the patient's blood sugar level is at 7.0, which is considered satisfactory. 5. Hyperlipidemia The patient is on Rosuvastatin for management of her lipid levels. No changes to this regimen were discussed. Diagnostic results - Lab Results: Blood sugar level is 7.0; stable and within target range for diabetes management. Problem List - Essential Hypertension - Type 2 Diabetes Mellitus - Hemorrhoids - Hyperlipidemia - Vitamin B12 Excess Medications - Trulicity ? for Type 2 Diabetes Mellitus - Gabapentin 100 mg at bedtime ? for nerve pain - Lisinopril 10 mg ? for Essential Hypertension - Metformin ? for Type 2 Diabetes Mellitus (2 tablets, twice daily) - Pioglitazone ? for Type 2 Diabetes Mellitus - Omeprazole ? for gastroesophageal reflux - Rosuvastatin ? for Hyperlipidemia - Vitamin D ? for Vitamin D maintenance Health Maintenance - Vitamin B12 supplementation reduced to twice a week to prevent excess. - Continuing patient education on the importance of adherence to medication regimens. [place] of Care - Coordination with the pharmacy for prescription refills on current medications, excluding insulin which has been discontinued. - Discussion regarding involvement of a utility tech for foot care due to diabetes was acknowledged but requires further scheduling. Patient Instructions - Reduce Vitamin B12 intake to twice a week. - Monitor any changes in the cough and seek medical advice if it worsens. - Continue with current medications as prescribed. - Maintain follow-up in three months; ensure the August 19 appointment is canceled. - Seek podiatry consultation as previously arranged. Follow-up 3 months Orders: Orders Hemoglobin A1c 3 Months E11.21 - Type 2 diabetes mellitus with diabetic nephropathy, E11.29 - Type 2 diabetes mellitus with other diabetic kidney complication, E11.42 - Type 2 diabetes mellitus with diabetic polyneuropathy, E78.5 - Hyperlipidemia, unspecified, I10 - Essential (primary) hypertension, M19.011 - Primary osteoarthritis, right shoulder, M19.012 - Primary osteoarthritis, left shoulder, R80.9 - Proteinuria, unspecified, Z79.4 - superintendent container terminal (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 Comprehensive Met. Panel 3 Months E11.21 - Type 2 diabetes mellitus with diabetic nephropathy, E11.29 - Type 2 diabetes mellitus with other diabetic kidney complication, E11.42 - Type 2 diabetes mellitus with diabetic polyneuropathy, E78.5 - Hyperlipidemia, unspecified, I10 - Essential (primary) hypertension, M19.011 - Primary osteoarthritis, right shoulder, M19.012 - Primary osteoarthritis, left shoulder, R80.9 - Proteinuria, unspecified, Z79.4 - superintendent container terminal (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 Microalbumin, Random (w Creat) 3 Months E11.21 - Type 2 diabetes mellitus with diabetic nephropathy, E11.29 - Type 2 diabetes mellitus with other diabetic kidney complication, E11.42 - Type 2 diabetes mellitus with diabetic polyneuropathy, E78.5 - Hyperlipidemia, unspecified, I10 - Essential (primary) hypertension, M19.011 - Primary osteoarthritis, right shoulder, M19.012 - Primary osteoarthritis, left shoulder, R80.9 - Proteinuria, unspecified, Z79.4 - detention (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 Complete Blood Count Auto Diff 3 Months E11.21 - Type 2 diabetes mellitus with diabetic nephropathy, E11.29 - Type 2 diabetes mellitus with other diabetic kidney complication, E11.42 - Type 2 diabetes mellitus with diabetic polyneuropathy, E78.5 - Hyperlipidemia, unspecified, I10 - Essential (primary) hypertension, M19.011 - Primary osteoarthritis, right shoulder, M19.012 - Prim kim osteoarthritis, left shoulder, R80.9 - Proteinuria, unspecified, Z79.4 - superintendent container terminal (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 Referrals Podiatry Referral E11.9 - Type 2 diabetes mellitus without complications Medications: New aspirin (Adult Low Dose Aspirin) 81 mg PO DAILY 90 tabs 3RF omeprazole 20 mg PO DAILY 90 caps 1RF Changed From gabapentin 100 mg PO DAILY To gabapentin 100 mg PO .qhs 90 caps 1RF From cyanocobalamin (vitamin B-12) 100 mcg PO QAM 90 tabs 3RF E11.65 - Type 2 diabetes mellitus with hyperglycemia To cyanocobalamin (vitamin B-12) 100 mcg PO .qod 45 tabs 3RF 90 days E11.65 - Type 2 diabetes mellitus with hyperglycemia Refilled lisinopril 10 mg PO DAILY 90 tabs 3RF 90 days I10 - Essential (primary) hypertension rosuvastatin 40 mg PO DAILY 90 tabs 1RF 90 days E78.5 - Hyperlipidemia, unspecified metformin ER 1,000 mg (2 x 500 mg) PO BID 360 tabs 2RF E11.65 - Type 2 diabetes mellitus with hyperglycemia pioglitazone 30 mg PO DAILY 90 tabs 2RF 90 days E11.65 - Type 2 diabetes mellitus with hyperglycemia Discontinued insulin glargine (Lantus Solostar U-100 Insulin) Discontinued Reason: Doctor's Order 7 units (0.07 mL) subcut DAILY 90 days 15 mL 0RF E11.29 - Type 2 diabetes mellitus with other diabetic kidney compli cation, R80.9 - Proteinuria, unspecified, Z79.4 - superintendent container terminal (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
== END 2024-08-16 12:46 | disposition home or self-care (01) ==
PROVIDERS: PCP Internal Medicine; Visit Provider Internal Medicine
DX: E11.29 Type 2 diabetes mellitus with other diabetic kidney complication (principal); Z79.4 Long term (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; E11.42 Type 2 diabetes mellitus with diabetic polyneuropathy; E11.21 Type 2 diabetes mellitus with diabetic nephropathy; R80.9 Proteinuria, unspecified; M19.011 Primary osteoarthritis, right shoulder; M19.012 Primary osteoarthritis, left shoulder; E78.5 Hyperlipidemia, unspecified; I10 Essential (primary) hypertension

== ENCOUNTER → 2024-08-16 12:04 | Outpatient (BNVA) | payer MEDICARE, MEDICAID, SELFPAY | PROVIDERS: PCP Internal Medicine; Visit Provider Internal Medicine | DX: E11.29 Type 2 diabetes mellitus with other diabetic kidney complication (principal); R80.9 Proteinuria, unspecified; E11.42 Type 2 diabetes mellitus with diabetic polyneuropathy; E11.21 Type 2 diabetes mellitus with diabetic nephropathy; E78.5 Hyperlipidemia, unspecified; I10 Essential (primary) hypertension; M19.011 Primary osteoarthritis, right shoulder; M19.012 Primary osteoarthritis, left shoulder; Z79.4 Long term (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 | CPT/HCPCS: 99212 ==

== ENCOUNTER 2024-10-04 10:45 | Outpatient (AMB) | payer MEDICARE, MEDICAID, SELFPAY ==
--- NOTE | 2024-10-04 10:57 | A.OFFVIS_ITS ---
Vital Signs 10/04/24 10:59 Height 5 ft 1 in Weight 133 lb 2.547 oz BMI 25.2 BP 126/60 Blood Pressure Location Rt brachial Position Sitting Pulse 82 Pulse Source Pulse Oximeter Pulse Oximetry (%) 100 Oxygen Delivery Method Room Air Intake Visit Reasons: Colonoscopy screening Intake Note: NEW PATIENT for Recall colo screening. (2014 w/ Dr. Mir). 4th colo. Chief Complaint; No GI concerns per pt. BM normal, declines any N+V, or GERD. Second Watch Sergeant Required: Yes Second Watch Sergeant Services: Second Watch Sergeant Present Second Watch Sergeant Name: Subhash Chapman ([id number]) Information Interpreted: non-clinical & clinical Accompanied by: Son Allergies Iodinated Contrast Media [IV DYE, IODINE CONTAINING] Allergy (Intermediate, Unverified 10/04/24 10:58) DYSPNEA HPI HPI Colonoscopy screening: Details: 79 year old? female here today for pre colonoscopy screening.? Patient was sent to us by her PCP.? Last colonoscopy was in January of 2015. Patient had no polyps. Diverticulosis and hemorrhoids found.? Patient denies any gastrointestinal symptoms in the past or at present.? Patient reports constipation. Denies any personal or family history of gastrointestinal disease or CRC.? Denies history of difficulty with sedation or anesthesia in the past.? Negative for history of sleep apnea.? Denies any history of cardiac, renal, pulmonary, or hepatic disease.?? No history of infectious? diseases like hepatitis A, B, C, HIV or tuberculosis.? Patient is not on any anticoagulation [facility] Medical History Diabetic nephropathy associated with type 2 diabetes mellitus Diabetic polyneuropathy associated with type 2 diabetes mellitus Diabetes type 2, controlled Proliferative diabetic retinopathy skilled nursing (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 Diabetes type 2, uncontrolled Dyslipidemia Hypertension Surgical History Hx of cholecystectomy Hx of hysterectomy Hx of carpal tunnel repair Hx of tonsillectomy Family History Son Family history of thyroid problem Mother No problems noted. Father No problems noted. Social History Household Members: Spouse Housing: Apartment Alcohol intake: never Patient Tobacco Use Status: Former Tobacco user Current occupational status: unemployed Cognitive needs: No Hearing needs: Yes Vision needs: Yes Review of Systems Const Denies weight gain and Denies weight loss ENT Reports no additional complaints, Denies dysphagia and Denies odynophagia Card Reports no additional complaints Resp Reports no additional complaints GI Denies abdominal pain, Denies belching, Denies melena, Reports bloating, Denies change in bowel habits, Reports constipation, Denies dysphagia, Denies excessive flatus, Denies dyspepsia, Denies heartburn, Denies diarrhea, Denies loose stools, Denies nausea, Denies odynophagia and Denies vomiting Reports no additional complaints Musc Reports no additional complaints Neuro Reports no additional complaints Psych Reports no additional complaints Endo Reports no additional complaints Physical Exam Vital Signs: Last Vital Signs Pulse 82 10/04/24 10:59 BP 126/60 10/04/24 10:59 Pulse Ox 100 10/04/24 10:59 Oxygen Delivery Method Room Air 10/04/24 10:59 BMI result Body Mass Index 25.2 Const General: healthy appearing, no acute distress and well developed Nutritional Appearance: well nourished Orientation/consciousness: patient oriented x3 Resp Effort & Inspection: normal respiratory effort, able to speak in complete sentences, no tracheal deviation and symmetric chest movement Auscultation: clear to auscultation bilaterally Cardio Rate: regular rate GI Inspection: Yes normal to inspection and No distended Palpation (GI): Soft to palpation, not firm, nontender and No hepatosplenomegaly present Auscultation: normal bowel sounds General: Yes no CVA tenderness Back/Spine/Pelvis Back: no CVA tenderness Skin General skin exam: elasticity normal, turgor normal and dry skin Neuro General: patient oriented x3 Psych Appearance: grossly normal Mental Status: mental status grossly normal Assessment & Plan Assessment & Plan (1) Colon cancer screening: Code(s): Z12.11 - Encounter for screening for malignant neoplasm of colon Category: Medical (2) Constipation: Code(s): K59.00 - Constipation, unspecified Qualifiers: Constipation type: slow transit constipation Qualified Code(s): K59.01 - Slow transit constipation Plan Patient denies any cardiac or respiratory symptoms.? As mentioned above in HPI patient had colonoscopy in 2014. No polyps, diverticulosis and hemorrhoids found. Patient denies any melena, hematochezia, unintentional weight loss or ribbon like stools. Patient is on Trulicity and she is eating small amounts. Patient is not eating any meat. Soups are her favored meals. Patient's son is concerned about that patient is not eating enough. Both patient and son educated about Trulicity can affect gastric motility. Patient reports to be constipated. Took Dulcolax before and was not helpful. Patient will start MiraLax. Will return in 2 months for re-evaluation. Message sent to surgical schedulers to book procedure for patient.. Both patient and her son are agreeable to plan of care and verbalizes understanding of instructions. They were given the opportunity to ask questions and all questions answered. Thank you for allowing me to participate in his care Medications: New polyethylene glycol 3350 (Miralax) 17 grams PO DAILY 510 grams 2RF Coding Level of Care Code New Pt Level 3 (98317) Diagnoses Colon cancer screening Z12.11 Slow transit constipation K59.01 Constipation type: slow transit constipation Time Spent (min) 40 Comment 30 minutes spent with patient and additional 10 minutes spent reviewing her records
[2024-10-04 10:59] VITALS: BP 126/60; PULSE 82; O2SAT 100; BMI 25.2
--- OUTSIDE RECORDS SUMMARY | 2024-10-04 11:37 | XMS_ITS | Clinical Summary ---
Author Organization [address] Address [address] [place] [phone] Phone Care Team Providers Care Asphalt Tamper Name Role Phone Harshad Castle MD Primary Care Provider [phone] Allergies Active Allergy Reactions Criticality Noted Date Comments Iodinated Contrast Media 06/18/2015 SOB Medications Medication Sig Dispensed Refills Start Date End Date Status gabapentin (NEURONTIN) 100 mg capsule TAKE 2 CAPSULES BY MOUTH TWICE DAILY IN THE MORNING AND EVENING 09/22/2023 Active cyanocobalamin (VITAMIN B-12) 100 mcg tablet TAKE 1/2 TABLET BY MOUTH EVERY MORNING 03/24/2024 Active alcohol swabs (Alcohol Prep Pads) pads, medicated Apply 1 Each topically 5 times daily. 12/30/2023 Active lancets 33 gauge misc Apply 1 Strip topically 4 times daily. 12/30/2023 Active aspirin 81 mg EC tablet Take 1 Tablet by mouth at bedtime. 03/24/2024 Active cholecalciferol (VITAMIN D-3) 25 mcg (1,000 unit) tablet Take 1 tablet (1,000 Units total) by mouth 1 (one) time each day in the morning. 03/24/2024 Active lisinopriL (PRINIVIL,ZESTRIL) 2.5 mg tablet Take 1 tablet (2.5 mg total) by mouth 1 (one) time each day. 03/24/2024 Active loratadine (CLARITIN) 10 mg tablet Take 1 tablet (10 mg total) by mouth 1 (one) time each day in the morning. 03/24/2024 Active metFORMIN (FORTAMET) 500 mg 24 hr tablet Two tabs BID 03/24/2024 Act elizabeth omeprazole (PriLOSEC) [address] capsule Take 1 capsule (20 mg total) by mouth 1 (one) time each day in the morning. 03/24/2024 Active pioglitazone (ACTOS) 30 mg tablet Take 1 tablet (30 mg total) by mouth 1 (one) time each day. 03/24/2024 Active rosuvastatin (CRESTOR) 40 mg tablet Take 1 tablet (40 mg total) by mouth 1 (one) time each day. 03/24/2024 Active dulaglutide (Trulicity) 0.75 mg/0.5 mL pen injector injection Inject 0.75 mg into the skin once a week. 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 Donna ritter at [facility] Diabetic neuropathy 04/21/2017 BPPV (benign paroxysmal positional vertigo) 10/01 Obesity (BMI 30.0-34.9) 07/08/2016 Diverticulosis 06/18/2015 GERD (gastroesophageal reflux disease) 5 HTN (hypertension) 06/18/2015 Hyperlipidemia 06/18/2015 Osteoarthritis, knee 06/18/2015 Overview (06/01/2024): Bilateral Positive PPD 06/18/2015 Tubular adenoma of colon 06/18/2015 Type 2 diabetes mellitus with cataract 5 Type 2 diabetes mellitus wit h neurological manifestations, controlled 06/18/2015 Overview (06/01/2024): Sees Dr. Donna ritter at [facility] Encounters Date Type Department Care Team Description 09/09/2024 12:45 PM EST Consult Orthopedic Surgery - [address] [phone] Esteban Donato, CAROLYN Controlled type 2 diabetes with neuropathy (CMS/HCC) (Primary Dx); Arthritis of both feet; Pain in toes of both feet; Hammertoes of both feet; Dermatophytosis, nail 08/10/2024 Telephone Adult Medicine [address] [phone] Harshad Castle MD Release of Information from Last 3 Months Immunizations Name Administration Dates Next Due Influenza trivalent, 0.5mL ( Fluzone High-dose) 65yo and older 05/11/2023,07/09/2022,06/11/2021,05/15,06/28/2019,06/15/2018 Influenza trivalent, with pr eservative (Fluzone; Afluria) 6mo and older 07/08/2016,06/22/2015 Influenza, Unspecified 05/11/2023 Pneumococcal conjugate 13 va lent (Prevnar 13, PCV13) 2mo and older 07/08/2016 Pneumococcal polysaccharide 23 valent (Pneumovax 23) 2yo and older 08/01/2021 Surgical History Surgery Date Site/Laterality Comments OTHER SURGICAL HISTORY 01/10/15 PROCEDURE: MAMMOGRAM COLONOSCOPY 02/12/15 PROCEDURE: HISTORICAL COLONOSCOPY UPPER GASTROINTESTINAL ENDOSCOPY 02/12/15 PROCEDURE: UPPER GI ENDOSCOPY/EXAM CHOLECYSTECTOMY PROCEDURE: HISTORICAL CHOLECYSTECTOMY HYSTERECTOMY PROCEDURE: HISTORICAL HYSTERECTOMY TONSILLECTOMY PROCEDURE: HISTORICAL TONSILLECTOMY CARPAL TUNNEL RELEASE Bilateral PROCEDURE: HISTORICAL CARPAL TUNNEL REL OTHER SURGICAL HISTORY PROCEDURE: ---- OTHER ----; COMMENT: ectopic CATARACT EXTRACTION 09/11/2014 Bilateral PROCEDURE: HISTORICAL CATARACT REMOVAL Medical History Medical History Date Comments Tubular adenoma of colon 06/18/2015 DX:Tubu lar adenoma of colon KELL (iron deficiency anemia) 06/18/2015 DX: KELL (iron deficiency anemia) GERD (gastroesophageal reflu x disease) 06/18/2015 DX:GERD (gastroesophageal re flux disease) Hyperlipidemia 06/18/2015 DX:Hyperlipidemi a Osteoarthritis, knee 06/18/2015 DX:Osteoart hritis, knee; COMMENT: Bilateral Positive PPD 06/18/2015 DX:Positive PPD HTN (hypertension) 06/18/2015 DX:HTN (hyper tension) Peripheral neuropathy 06/18/2015 DX:Periphe ral neuropathy History of carpal tunnel rel ease of both wrists 06/18/2015 DX:History of carpal tunnel release of both wrists Diverticulosis 06/18/2015 DX:Diverticulosi s Obesity (BMI 30.0-34.9) 07/08/2016 DX:Obesi ty (BMI 30.0-34.9) Type 2 diabetes mellitus wit h cataract ([facility]) 06/18/2015 DX:Type 2 diabetes mellitus with cataract ([facility]) BPPV (benign paroxysmal posi tional vertigo) 10/14/2016 DX:BPPV (benign paroxysmal p ositional vertigo) Type 2 diabetes mellitus wit h neurological manifestations, controlled ([facility]) 06/18/2015 DX:Type 2 diabetes mellitus with neurological manifestations, controlled ([facility]) Type 2 diabetes mellitus wit h eye manifestations ([facility]) 04/21/2017 DX:Type 2 diabetes mellitus with eye manifestations ([facility]) Diabetic retinopathy ([facility]) 04/21/2017 D X:Diabetic retinopathy ([facility]) Diabetic neuropathy ([facility]) 04/21/2017 DX :Diabetic neuropathy ([facility]) Tinnitus aurium, 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 DX:Ti nnitus aurium, bilateral Social History Tobacco Use Types Packs/Day Years Used Date Smoking Tobacco: Never Smokeless Tobacco: Never Tobacco Cessation:Counseling Given: Not Answered Alcohol Use Standard Drinks/Week Comments Not Asked 0 (1 standard drink = 0.6 oz pur e alcohol) Sex and Gender Information Value Date Recorded Sex Assigned at Not on file Gender Identity Not on file Sexual Orientation Not on file Job Start Date Occupation Industry Not on file Not on file Not on file Obstetrics History Last Filed Vital Signs Vital Sign Reading Time Taken Comments Blood Pressure 119/70 01/04/2024 2:24 PM EDT Pulse 89 01/04/2024 2:24 PM EDT Temperature - - Respiratory Rate - - Oxygen Saturation - - Inhaled Oxygen Concentration - - Weight 59.9 kg (132 lb) 09/09/2024 1:34 PM EST Height 154.9 cm (5' 0.98 ) 09/09/2024 1:34 PM ES T Body Mass Index 24.95 09/09/2024 1:34 PM EST Plan of Treatment Upcoming Encounters Date Type Department Care Team (Late st Contact Info) Description 11/14/2024 10:30 AM EDT Office Visit Orthopedic Surgery - [place] [address] [phone] Esteban Dontao, CAROLYN [address] [phone] (work) Health Maintenance Due Date Last Done Comments Diabetes: Annual Retina Eye Exam 1955 DTaP,Tdap,and Td Vaccines (1 - Tdap) 1966 Zoster Vaccines (1 of 2) 1997 Depression Screening 08/09/2022 Falls Risk Assessment 08/09/2022 Social Influencers of Health Screening 08/09/2022 RSV Immunization Patients 60+ Years Old (1 - 1-dose 75+ series) 2022 Diabetes: Annual GFR (Glomerular Filtration Rate) 11/06/2023 11/05/2022 Hypertension/CHF/CAD Annual BMP Blood Test 11/06/2023 11/05/2022 Diabetes: Annual Foot Exam 03/03/2024 03/03/2023 COVID-19 Vaccine ( season) 2024 09/24/2021, 01/16/2021, 12/19/2020 Diabetes: Blood Sugar Control Test (HGBA1C) 07/06/2024 01/04/2024, 01/04/2024 Diabetes: Annual Urine Albumin-Creatinine Ratio (uACR) 01/03/2025 01/04/2024 Cholesterol Screening (Lipid Panel) 01/03/2029 01/04/2024, 01/04/2024 Osteoporosis Screening (Bone Density Screening) 06/18/2033 06/18/2023, 05/07/2017 Hepatitis C Screening Completed 03/15/2015 Pneumococcal Vaccine: 65+ Years Completed 08/01/2021, 07/08/2016 Breast Cancer Screening Discontinued 06/18/2023 Influenza Vaccine Completed 05/17/2024, , 05/11/2023, Additional history exists HIB Vaccines Aged Out No longer eligi ble based on patient's age to complete this topic HPV Vaccines Aged Out No longer eligi ble based on patient's age to complete this topic Hepatitis A Vaccines Aged Out No long er eligible based on patient's age to complete this topic Hepatitis B Vaccines Aged Out No long er eligible based on patient's age to complete this topic IPV Vaccines Aged Out No longer eligi ble based on patient's age to complete this topic MMR Vaccines Aged Out No longer eligi ble based on patient's age to complete this topic Meningococcal ACWY Vaccine Aged Out N o longer eligible based on patient's age to complete this topic RSV Immunization Patients Under 20 months Aged Out No longer eligible based on patient's age to complete this topic Varicella Vaccines Aged Out No longer eligible based on patient's age to complete this topic Procedures Procedure Name Priority Date/Time Associated Diagnosis Comments URINE ALBUMIN CREATININE RATIO Routine 01/04/2024 HEMOGLOBIN A1C Routine 01/04/2024 LIPID PANEL Routine 01/04/2024 DXA BONE DENSITY STUDY 1+ SITS AXIAL SKEL Routine 06/18/2023 2:56 PM EDT Encounter for screening for osteoporosis SCREENING MAMMOGRAPHY BI 2-VIEW BREAST INC CAD Routine 06/18/2023 2:23 PM EDT Encounter for screening mammogram for malignant neoplasm of breast ANNUAL BMP BLOOD TEST Routine 11/05/2022 HEPATITIS C SCREENING Routine 03/15/2015 from Last 3 Months or Most Recently Relevant to Health Maintenance Results * Urine Albumin Creatinine Ratio (01/04/2024) Pathologist [facility] Urine Albumin Creatinine Ratio abstracted Historical Provider [facility] RICKEYANC E * (ABNORMAL) Hemoglobin A1c (01/04/2024) Pathologist [facility] Hemoglobin A1C 7.0(A) 6.5 % Blood Venous blood specimen / Unknown Historical Provider LAB BLOOD ORDERAB LES * Lipid panel (01/04/2024) LDL/HDL Ratio 2 0 - 4 Triglycerides 103 0 - 150 mg/dL Cholesterol 144 0 - 200 mg/dL HDL 88 40 mg/dL LDL Cholesterol 36 0 - 100 mg/dL Blood Venous blood specimen / Unknown Historical Provider LAB BLOOD ORDERAB LES * DXA BONE DENSITY STUDY 1+ SITS AXIAL SKEL (06/18/2023 2:56 PM EDT) Anatomical Region Laterality Modality Bone Densitometr y 03/17/2023 11:1 2 AM EDT Narrative 06/18/2023 4:08 PM EDT BONE DENSITY ? Lumbar Spine T-score is -1.7 ?? (SD relative to 20-29 y/o adult) Z-score is +0.7 ??(SD relative to age matched peers) This is consistent with osteopenia by criteria defined by the WHO. Left Hip T-score is -2.1 Z-score is -0.1 This is consistent with osteopenia by criteria defined by the WHO. Comparison exam(s): significant decrease in bone density of ??hip and lumbar spine when compared to most recent bone density examination ?? Confidence level is +/-95%. Impression: Based on the World Health Organization criteria, Jinny Hoyos should be classified as having osteopenia. This patient has a 8.0% risk of major osteoporotic fracture and a 2.1% risk of hip fracture over the next 10 years. (World Health Organization Fracture Risk Assessment) [facility] Department of Internal Medicine recommends using National Osteoporosis Foundation (NOF) guidelines in treatment decisions related to osteoporosis. NOF guidelines suggest considering treatment for postmenopausal women and men aged 50 or older presenting with the following: History of hip or vertebral fracture. T-score less than or equal to -2.5 (DXA) at the femoral neck, total hip, or spine, after appropriate evaluation to exclude secondary causes. Low bone mass (T-score between -1.0 and -2.5 at the femoral neck or spine) AND a 10-year probability of a hip fracture greater than or equal to 3% OR a 10-year probability of a major osteoporosis-related fracture greater than or equal to 20% based on the [place]-adapted WHO algorithm Please note that all treatment decisions require clinical judgment and consideration of individual patient factors, including patient preferences, co-morbidities, previous drug use, risk factors not captured in the FRAX model (e.g., frailty, falls, vitamin D deficiency, increased bone turnover, interval significant decline in bone density) and possible under- or over-estimation of fracture risk by FRAX. 3 Procedure Note Kris Mccormack MD - 10/06/2023 BONE DENSITY Lumbar Spine T-score is -1.7 (SD relative to 20-29 y/o adult) Z-score is +0.7 (SD relative to age matched peers) This is consistent with osteopenia by criteria defined by the WHO. Left Hip T-score is -2.1 Z-score is -0.1 This is consistent with osteopenia by criteria defined by the WHO. Comparison exam(s): significant decrease in bone density of hip andlumbar spine when compared to most recent bone density examination Confidence level is +/-95%. Impression: Based on the World Health Organization criteria, Jinny Hoyos should beclassified as having osteopenia. This patient has a 8.0% risk of majorosteoporotic fracture and a 2.1% risk of hip fracture over the next 10years. (World Health Organization Fracture Risk Assessment) [facility] Department of Internal Medicine recommendsusing National Osteoporosis Foundation (NOF) guidelines in treatmentdecisions related to osteoporosis. NOF guidelines suggest consideringtreatment for postmenopausal women and men aged 50 or older presentingwith the following: History of hip or vertebral fracture. T-score less than or equal to -2.5 (DXA) at the femoral neck, total hip,or spine, after appropriate evaluation to exclude secondary causes. Low bone mass (T-score between -1.0 and -2.5 at the femoral neck or spine)AND a 10-year probability of a hip fracture greater than or equal to 3% ORa 10-year probability of a major osteoporosis-related fracture greaterthan or equal to 20% based on the [place]-adapted WHO algorithm Please note that all treatment decisions require clinical judgment andconsideration of individual patient factors, including patientpreferences, co-morbidities, previous drug use, risk factors not capturedin the FRAX model (e.g., frailty, falls, vitamin D deficiency, increasedbone turnover, interval significant decline in bone density) and possibleunder- or over-estimation of fracture risk by FRAX. 3 Liane Hutton MD IMG DXA WI OCEDURES * SCREENING MAMMOGRAPHY BI 2-VIEW BREAST INC CAD (06/18/2023 2:23 PM EDT) Anatomical Region Laterality Modality Radiographic Denise ging 03/17/2023 11:1 2 AM EDT Narrative 06/19/2023 9:25 AM EDT This is a summary report. The complete report is available in the patient's medical record. If you cannot access the medical record, please contact the sending organization for a detailed fax or copy. BILATERAL 3D DIGITAL SCREENING MAMMOGRAM History: Routine screening. ??No current breast complaints. ?? Comparison: Mammogram from 04/01/2022 Technique: Bilateral full-field digital 3D mammography was performed using standard CC and MLO projections, bilateral exaggerated cc CAD was used to evaluate this mammogram. Findings: Density: ??There are scattered areas of fibroglandular density-B RIGHT: No suspicious masses, groups of microcalcification or areas of architectural distortion identified. Stable typically benign parenchymal asymmetries LEFT: No suspicious masses, groups of microcalcifications or areas of architectural distortion identified. Stable typically benign parenchymal asymmetries IMPRESSION: : 1. ??No mammographic evidence of malignancy. BI-RADS Category 2 benign findings Recommendation: Routine annual screening mammography is recommended Procedure Note Rudy Plummer MD - 10/06/2023 This is a summary report. The complete report is available in thepatient's medical record. If you cannot access the medical record, pleasecontact the sending organization for a detailed fax or copy. BILATERAL 3D DIGITAL SCREENING MAMMOGRAM History: Routine screening. No current breast complaints. Comparison: Mammogram from 04/01/2022 Technique: Bilateral full-field digital 3D mammography was performed usingstandard CC and MLO projections, bilateral exaggerated cc CAD was used to evaluate this mammogram. Findings: Density: There are scattered areas of fibroglandular density-B RIGHT: No suspicious masses, groups of microcalcification or areas ofarchitectural distortion identified. Stable typically benign parenchymalasymmetries LEFT: No suspicious masses, groups of microcalcifications or areas ofarchitectural distortion identified. Stable typically benign parenchymalasymmetries IMPRESSION: : 1. No mammographic evidence of malignancy. BI-RADS Category 2 benign findings Recommendation: Routine annual screening mammography is recommended Liane Hutton MD IMG XR PRO CEDURES * Annual BMP Blood Test (11/05/2022) Annual BMP Blood Test abstracted Historical Provider MD LORA MAINWILLIAM E * Hepatitis C Screening (03/15/2015) Hepatitis C Screening abstarcted Historical Provider MD GUIDO LAMA E from Last 3 Months or Most Recently Relevant to Health Maintenance Care Teams Asphalt Tamper Relationship Specialty Start Date End Date Harshad Castle MD [address] [facility] [place] [phone] PCP - General Internal Medicine 07/08/24
--- OUTSIDE RECORDS SUMMARY | 2024-10-04 11:37 | XMS_ITS | Encounter Summary ---
Author Organization [employer] Address [address] [place] [address] Care Team Providers Care Life Skills Coordinator Name Role Phone Harshad Castle MD Primary Care Provider [phone] Reason for Visit * Reason Comments DM Foot Care DIABETIC FOOT CARE * Consultation (Routine) - Closed Specialty Diagnoses / Procedures Referred By Petros ye Referred To Contact Podiatry / Orthopaedic Surgery Diagnoses Type 2 diabetes mellitus without complications (CMS/HCC) Esteban Donato DPM [address] [address] Esteban Donato DPM [address] [address] Referral ID Status Reason Start Date Expiration Date V isits Requested Visits Authorized [id number] Closed Specialty Services Required 08/19/2024 08/19/2025 1 1 Encounter Details Date Type Department Care Team (Late st Contact Info) Description 09/09/2024 12:45 PM EST Consult Orthopedic Surgery - [place] [address] [phone] Esteban Donato DPM [address] [address] Controlled type 2 diabetes with neuropathy (CMS/HCC) (Primary Dx); Arthritis of both feet; Pain in toes of both feet; Hammertoes of both feet; Dermatophytosis, nail Social History Tobacco Use Types Packs/Day Years [...] file Not on file Not on file documented as of this encounter Last Filed Vital Signs Vital Sign Reading Time Taken Comments Blood Pressure - - Pulse - - Temperature - - Respiratory Rate - - Oxygen Saturation - - Inhaled Oxygen Concentration - - Weight 59.9 kg (132 lb) 09/09/2024 1:34 PM EST Height 154.9 cm (5' 0.98 ) 09/09/2024 1:34 PM ES T Body Mass Index 24.95 09/09/2024 1:34 PM EST documented in this encounter Progress Notes * Esteban Donato, DPM - 09/09/2024 12:45 PM EST Referring MD: Tin Last PCP visit: 08/10/2024 IDENTIFIER: @TITLE@ Romain is a 79 y.o. year old female who presents for consultation. CC: Bilateral foot pain HPI: Patient presents to office today for initial diabetic foot evaluation as recommended by their primary care physician. Patient states that they have been diabetic for the past few years and have had minimal complications. Denies any history of ulceration, or infection. Patient would like to inquire about their pedal hygiene, as their toenails have become elongated and painful. Patient is not using antifungals at this time. Patient is wearing good supportive shoes at this time. Patient reports mild calluses that are becoming bothersome. Patient with minimal other pedal complaints at this time. Patient's FBS this AM was 128 Recent A1C is %. 7.1 ROS: GENERAL: Pt denies nausea, fever, vomiting, chills, or shortness of breath. Pt in NAD. CARDIOLOGY: pt denies chest pain, palpitations LUNGS: pt denies shortness of breath MUSCULOSKELETAL: See HPI, otherwise no joint pain or swelling, back pain, or muscle pain. SKIN: see HPI, otherwise no lesions, rash or itching NEURO: No persistent headache, weakness or numbness The remainder of the review of systems is noncontributory PAST MEDICAL HISTORY: Patient Active Problem List Diagnosis BPPV (benign paroxysmal positional vertigo) Diverticulosis GERD (gastroesophageal reflux disease) HTN (hypertension) Hyperlipidemia NPDR (nonproliferative diabetic retinopathy) ([facility]) Obesity (BMI 30.0-34.9) Osteoarthritis, knee Positive PPD Tinnitus aurium, bilateral Tubular adenoma of colon Type 2 diabetes mellitus with cataract (CMS/HCC) 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 aspirin 81 mg EC tablet Take 1 Tablet by mouth at bedtime. blood sugar diagnostic ([employer] Verio test strips) test strip TEST BLOOD SUGAR FOUR TIMES DAILY cholecalciferol (VITAMIN D-3) 25 mcg (1,000 unit) tablet Take 1 tablet (1,000 Units total) by mouth1 (one) time each day in the morning. cyanocobalamin (VITAMIN B-12) 100 mcg tablet TAKE 1/2 TABLET BY MOUTH EVERY MORNING dulaglutide (Trulicity) 0.75 mg/0.5 mL pen injector injection Inject 0.75 mg into the skin once a week. gabapentin (NEURONTIN) 100 mg capsule TAKE 2 CAPSULES BY MOUTH TWICE DAILY IN THE MORNING AND EVENING lancets 33 gauge misc Apply 1 Strip topically 4 times daily. lisinopriL (PRINIVIL,ZESTRIL) 2.5 mg tablet Take 1 tablet (2.5 mg total) by mouth 1 (one) time eachday. loratadine (CLARITIN) 10 mg tablet Take 1 tablet (10 mg total) by mouth 1 (one) time each day in the morning. metFORMIN (FORTAMET) 500 mg 24 hr tablet Two tabs BID omeprazole (PriLOSEC) [address] capsule Take 1 capsule (20 mg total) by mouth 1 (one) time each day in the morning. pioglitazone (ACTOS) 30 mg tablet Take 1 tablet (30 mg total) by mouth 1 (one) time each day. rosuvastatin (CRESTOR) 40 mg tablet Take 1 tablet (40 mg total) by mouth 1 (one) time each day. ALLERGIES: @ALL@ PHYSICAL EXAM: Height 1.549 m (60.98 ), weight 59.9 kg (132 lb). PODIATRIC EXAMINATION: GENERAL: Patient appears well nourished, with NAD. VASCULAR: Dorsalis pedis pulses are 2/4 bilaterally and Posterior tibial pulses are 0/4 bilaterally. Capillary filling time within normal limits the digits. No pallor on elevation or rubor on dependency. Positive hair growth. Some varicosities. Denies rest pain or claudication pain. NEUROLOGICAL: Sharp/dull sensation intact, protective sensation diminished on [place]. Multiple peripheral neuropathies bilaterally. ORTHOPEDIC: Good muscle strength 5/5 of all flexors and extensors. Dorsi flexion of ankle ,10 degrees, plantar flexion WNL. No muscle atrophy. Arthritic changes of the midfoot bilaterally with dorsalexostoses that are palpable. Rigid contractures of digits 2 through 5. DERMATOLOGICAL:.No masses or skin lesions noted. Normal skin temperature, normal skin turgor. Nailsare elongated dystrophic discolored x 10 with subungual debris BIOMECHANICS: STJ ROM wnl, MTJ ROM wnl, 1st MPJ ROM wnl. IMPRESSION: 1. Controlled type 2 diabetes with neuropathy (CMS/HCC) 2. Arthritis of both feet 3. Pain in toes of both feet 4. Hammertoes of both feet 5. Dermatophytosis, nail PLAN: Pt was seen and examined, history reviewed. Patient educated on the importance of good pedal hygiene and tight blood glucose control. Patient encouraged to maintain a healthy lifestyle with a well-balanced diet. Patient should never go barefoot and wear supportive shoe gear. Patient should aim for A1c less than 7% every month. Continue with regular appointments with PMD or dish person for tight medical management Patient with symptoms of arthritic pain in the pedal joints. Patient showed good understanding of etiology of arthritis. Patient is aware that conservative options include padding, over the counter products, orthotics, and shoes. Patient aware that they are other treatments available such as oral anti- inflammatories, injections, and steroid dose packs. Patient understands that these measures are conservative measures to help handle the osteoarthritic flares. Patient found to have contracted and hammered digits of bilateral forefoot. Due to patients currentage and activity level, will continue with conservative management of these deformities. There are devices that will help reduce chance of irritation, pressure points, blisters, and/or infection. Nail debridement performed to nails 1-5 bilateral as nails were described to be causing pain and difficulty for walking while in shoegear at their previous length. They were debrided in thickness andlength, with no incident. Clinical evidence of mycosis is documented which required active treatment. Patient expressed immediate relief. Patient is to RTC in 9 weeks Esteban Donato DPM documented in this encounter Plan of Treatment Upcoming Encounters Date Type Department Care Team (Late st Contact Info) Description 11/14/2024 10:30 AM EDT Office Visit Orthopedic Surgery - [place] [address] [phone] Esteban Donato DPM [address] [address] documented as of this encounter Visit Diagnoses Diagnosis Controlled type 2 diabetes with neuropathy ([facility])- Primary Type II or unspecified type diabetes mellitus with neurological manifestations, not stated as uncontrolled Arthritis of both feet Pain in toes of both feet Hammertoes of both feet Dermatophytosis, nail Dermatophytosis of nail documented in this encounter Orders Outpatient Referral Count Last Ordered Date st Ordered Date AMB REFERRAL TO PODIATRY 1 09/09/2024 documented in this encounter Care Teams Life Skills Coordinator Relationship Specialty Start Date End Date Harshad Castle MD [address] [place] [address] PCP - General Internal Medicine 07/08/24 documented as of this encounter
--- OUTSIDE RECORDS SUMMARY | 2024-10-04 11:37 | XMS_ITS | Encounter Summary ---
Author Organization [employer] Address [address] [place] [address] Care Team Providers Care Butcher All Round Name Role Phone Harshad Castle MD Primary Care Provider [phone] Reason for Visit * Reason Onset Date Comments Release of Information 08/10/2024 Encounter Details Date Type Department Care Team ([facility] st Contact Info) Description 08/10/2024 Telephone Adult Medicine [address] [phone] Harshad Castle MD [address] [place] [phone] Release of Information Social History Tobacco Use Types Packs/Day Years Used Date Smoking Tobacco: Never Smokeless Tobacco: Never Alcohol Use Standard Drinks/Week Comments Not Asked 0 (1 standard drink = 0.6 oz pur e alcohol) Sex and Gender Information Value Date Recorded Sex Assigned at Not on file Gender Identity Not on file Sexual Orientation Not on file Job Start Date Occupation Industry Not on file Not on file Not on file documented as of this encounter Progress Notes * Trudi Murguia MA - 08/15/2024 2:04 PM EST Pt is not longer listed with our pcp. Will have to sign an odalis and contact medical records. Lvm for pt to return call. * Danna Ocampo - 08/10/2024 11:18 AM EST Looking for last office notes, imaging, labs, and recent medication list [phone] Attention Teri documented in this encounter Plan of Treatment Upcoming Encounters Date Type Department Care Team (Late st Contact Info) Description 11/14/2024 10:30 AM EDT Office Visit Orthopedic Surgery - [place] [address] [facility] [address] [place] [phone] Esteban Donato, DPDanny 175 [facility] [address] [place] [address] documented as of this encounter Visit Diagnoses Not on filedocumented in this encounter Care Teams Butcher All Round Relationship Specialty Start Date End Date Harshad Castle MD [address] [place] [phone] PCP - General Internal Medicine 07/08/24 documented as of this encounter
== END 2024-10-04 11:35 | disposition home or self-care (01) ==
PROVIDERS: PCP Internal Medicine; Visit Provider Nurse Practitioner Family
CPT/HCPCS: 99203

== ENCOUNTER → 2024-10-04 10:45 | Outpatient (BNVA) | payer MEDICARE, MEDICAID, SELFPAY | PROVIDERS: PCP Internal Medicine; Visit Provider Nurse Practitioner Family | DX: Z12.11 Encounter for screening for malignant neoplasm of colon (principal); K59.01 Slow transit constipation | CPT/HCPCS: 99202 ==

== ENCOUNTER 2024-11-10 09:45 | Outpatient (REF) | payer OTHER, SELFPAY ==
--- OUTSIDE RECORDS SUMMARY | 2024-11-10 11:47 | XMS_ITS ---
Author Name Sarwat FARRELL MS. Goldencarrie Fernándeze Address [address] [place] [address] Phone [phone] [facility] Care Team Providers Care Tag Clerk Name Role Phone Rose Fam Unavailable [phone] Unavailable Unavailable Unavailable Mari Orellana Unavailable Unavailable JOSH DAILEY Unavailable [phone] Reason for Referral Not Available Allergies, adverse reactions, alerts Allergen Type Reaction Severity Status Onset Date Iodinated Contrast Media Allergy to subs tance (disorder) Unknown Active N/A History of medication use Medication Class Instructions Start Date End Date Trulicity 0.75 mg/0.5ML Solution Pen-injector INJECT ONE PEN (=0.75MG) SUBCUTANEOUSLY ONCE A WEEK DIRECTED 2021-10-01 No Data Available Loratadine 10 mg Tab TAKE 1 TABLET BY MO UTH EVERY MORNING PRN 2022-01-02 No Data Available OneTouch Delica Plus [id number] Miscellaneous TEST BLOOD SUGAR 4 TIMES A DAY 2021-04-04 No Data Available OneTouch Verio Strip TEST BLOOD SUGAR 4 TIMES A DAY 2021-10-02 No Data Available Rosuvastatin Calcium 40 mg Tab TAKE 1 TABLET BY MOUTH EVERY EVENING 2022-01-13 No Data Available Lantus SoloStar 100 UNIT/ML Solution Pen-injector INJECT 7 UNITS SUBCUTANEOUSLY DAILY 2021-08-19 2023-04-21 Meclizine 25 mg Tab TAKE 1 TABLET BY GINO TH THREE TIMES DAILY NEEDED FOR VERTIGO 2022-02-11 2022-06-25 cyanocobalamin (vit B-12) 10 0 mcg tablet TAKE 1 TABLET BY MOUTH EVERY MORNING 2022-02-11 No Data Available metFORMIN ER 500 mg Tab ER 24hr TAKE 2 TABLETS BY MOUTH TWICE DAILY IN THE MORNING AND EVENING 2022-02-11 No Data Available prednisoLONE Acetate 1 % Suspension INSTILL 1 DROP INTO LASERED EYE YONG SAWYER POR 5 D 2022-03-21 2022-06-25 Aspirin Low Dose 81 mg Tab delayed rel TAKE 1 TABLET BY MOUTH EVERY EVENING 2022-02-11 No Data Available cholecalciferol (vitamin D3) 25 mcg (1,000 unit) tablet TAKE 1 TABLET BY MOUTH EVERY MORNING 2022-02-11 No Data Available Gabapentin 100 mg Cap 1 cap at bedtime 2022-02-11 No Data Available Lisinopril 5 mg Tab TAKE 1 TABLET BY GINO TH EVERY MORNING 2021-12-18 2024-10-31 Omeprazole 20 mg Cap delayed rel TAKE 1 CAPSULE BY MOUTH EVERY MORNING 2022-02-11 No Data Available Pentips 32 gauge x 5/32 needle USE ONCE DAILY DIRECTED 2021-12-18 No Data Avail able Pioglitazone 30 mg Tab TAKE 1 TABLET BY MOUTH EVERY MORNING 2021-12-12 No Data Available Sodium Fluoride 5000 Sensitive 1.1-5 % Gel BRUSH YONG SAWYER DO NOT RINSE 2022-04-14 No Data Available Medbox Status USE DIRECTED 2022-07-10 No Data Nemo ilable Ondansetron 4 mg Tab Disintegrating 1 tablet orally every 8 hours prn 2022-10-29 2023-04-21 Alcohol Prep 70 % Pad USE 5 TIMES PER DA Y DIRECTED 2023-02-20 No Data Available Vitamin D3 25 MCG (1000 UT) Tab TAKE 1 TABLET BY MOUTH EVERY MORNING 2023-02-20 2024-02-17 Ketorolac Tromethamine 0.5 % Solution Ophthalmic 1 drop in both eyes BID 2024-02-17 2024-10-31 Meclizine 25 mg Tab 1 tablet orally TID prn dizziness 2024-02-17 2024-10-31 Amoxicillin-Pot Clavulanate 875/125 mg Tab Take 1 tablet PO twice daily for 7 days 2024-10-07 2024-10-31 predniSONE 20 mg Tab Take 2 tablets twic e daily for 3 days, 1 tablet twice daily for 2 days, and 1 tablet daily for 2 days. 2024-10-07 2024-10-31 Benzonatate 100 mg Cap Take 1 tablet twi ce daily as needed for cough. 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, bilateral Active 2024-01-30 9 N/A Type 2 diabetes mellitus with diabetic neuropathy Acti ve 2024-10-31 N/A Vitamin deficiency Active 2022-06-25 N/A GERD (gastroesophageal reflux disease) Active 22-02-20 N/A Type 2 diabetes mellitus with hyperlipidemia Active 2022-06-25 N/A Right arm pain Active 2024-03-15 N/A Acute sinus infection Resolved 2024-10-07 3-03 Other problems related to [facility] facilities and other health care Active 2024-10-31 N/A Allergies Active 2024-02-17 N/A Dizziness Active 2024-02-17 N/A Encounters Encounters Type Facility Date of Service Diagnosis/Co mplaint Medication List Documented (1159F) [facility] ([place] Medication List Documented (1159F) [facility] Medication List Documented (1159F) [facility] Medication List Documented (1159F) [facility] Medication List Documented (1159F) [facility] Medication List Documented (1159F) [facility] Type 2 diabetes mellitus wit h other specified complicationHyperlipidemia, unspecifiedOther specified diabetes mellitus with diabetic polyneuropathyEssential (primary) hypertensionDeficiency of other specified B group vitaminsVitamin D deficiency, unspecified No Data Available [facility]2022 Noninfective gastroenteritis and colitis, unspecified No Data Available [facility] ([place]/20[place] Noninfective gastroenteritis and colitis, unspecified Estab. patient 30-39min; chronic exacerbation, 2 stable chronic or 1 acute illness add add modifier 95 for video, (do not use for phone, instead use [id number]) [facility] Type 2 diabetes mellitus wit h other specified complicationHyperlipidemia, unspecifiedType 2 diabetes mellitus with proliferative diabetic retinopathy with macular edema, bilateralType 2 diabetes mellitus with diabetic polyneuropathyEssential (primary) hypertensionDeficiency of other specified B group vitaminsVitamin D deficiency, unspecified Estab. patient 30-39min; chronic exacerbation, 2 stable chronic or 1 acute illness add add modifier 95 for video, (do not use for phone, instead use [id number]) [facility] Estab. patient 30-39min; chronic exacerbation, 2 stable chronic or 1 acute illness add add modifier 95 for video, (do not use for phone, instead use [id number]) [facility] Estab. patient 30-39min; chronic exacerbation, 2 stable chronic or 1 acute illness add add modifier 95 for video, (do not use for phone, instead use [id number]) [facility] Estab. patient 30-39min; chronic exacerbation, 2 stable chronic or 1 acute illness add add modifier 95 for video, (do not use for phone, instead use [id number]) [facility] Estab. patient 30-39min; chronic exacerbation, 2 stable chronic or 1 acute illness add add modifier 95 for video, (do not use for phone, instead use [id number]) [facility] Estab. patient 30-39min; chronic exacerbation, 2 stable chronic or 1 acute illness add add modifier 95 for video, (do not use for phone, instead use 33936-44) [facility] Estab. patient 30-39min; chronic exacerbation, 2 stable chronic or 1 acute illness add add modifier 95 for video, (do not use for phone, instead use [id number]) [facility] Estab. patient 30-39min; chronic exacerbation, 2 stable chronic or 1 acute illness add add modifier 95 for video, (do not use for phone, instead use [id number]) [facility] ([place] 04[place] Estab. patient 30-39min; chronic exacerbation, 2 stable chronic or 1 acute illness add add modifier 95 for video, (do not use for phone, instead use 38715-35) [facility] Estab. patient 30-39min; chronic exacerbation, 2 stable chronic or 1 acute illness add add modifier 95 for video, (do not use for phone, instead use 23215-91) [facility] Type 2 diabetes mellitus wit h other specified complicationHyperlipidemia, unspecifiedType 2 diabetes mellitus with diabetic neuropathy, unspecifiedEssential (primary) hypertensionVitamin deficiency, unspecifiedType 2 diabetes mellitus with proliferative diabetic retinopathy with macular edema, bilateralOther problems related to medical facilities and other health careDizziness and giddinessAllergy, unspecified, initial encounterGastro-esophageal reflux disease without esophagitis Estab. patient 30-39min; chronic exacerbation, 2 stable chronic or 1 acute illness add add modifier 95 for video, (do not use for phone, instead use 53506-83) [facility] Estab. patient 30-39min; chronic exacerbation, 2 stable chronic or 1 acute illness add add modifier 95 for video, (do not use for phone, instead use 12785-78) [facility] Estab. patient 30-39min; chronic exacerbation, 2 stable chronic or 1 acute illness add add modifier 95 for video, (do not use for phone, instead use [id number]) [facility] Estab. patient 30-39min; chronic exacerbation, 2 stable chronic or 1 acute illness add add modifier 95 for video, (do not use for phone, instead use [id number]) [facility] No Data Available [facility] Pain In Right ArmOther probl ems related to medical facilities and other health care Unlisted special service; to be used for medical record reviews and reporting CPTII codes (1111F, etc) [facility] Other specified counseling Unlisted special service; to be used for medical record reviews and reporting CPTII codes (1111F, etc) [facility] Unlisted special service; to be used for medical record reviews and reporting CPTII codes (1111F, etc) [facility] Estab. patient 10-29min; 1 minor problem; add add modifier 95 for video, modifier 93 for phone [facility] Acute sinusitis, unspecified Estab. patient 10-29min; 1 minor problem; add add modifier 95 for video, modifier 93 for [facility] Estab. patient 10-29min; 1 minor problem; add add modifier 95 for video, modifier 93 for [facility] Estab. patient 10-29min; 1 minor problem; add add modifier 95 for video, modifier 93 for phone [facility] Estab. patient 20-29min; 1 stable chronic or 2 minor; add add modifier 95 for video, modifier 93 for phone [facility]2024 Type 2 diabetes mellitus wit h other specified complicationHyperlipidemia, unspecifiedType 2 diabetes mellitus with diabetic neuropathy, unspecifiedVitamin deficiency, unspecifiedType 2 diabetes mellitus with proliferative diabetic retinopathy with macular edema, bilateralDizziness and giddiness Estab. patient 20-29min; 1 stable chronic or 2 minor; add add modifier 95 for video, modifier 93 for [facility] Estab. patient 20-29min; 1 stable chronic or 2 minor; add add modifier 95 for video, modifier 93 for [facility] Estab. patient 20-29min; 1 stable chronic or 2 minor; add add modifier 95 for video, modifier 93 for [facility] Estab. patient 20-29min; 1 stable chronic or 2 minor; add add modifier 95 for video, modifier 93 for phone [facility] [place] Estab. patient 20-29min; 1 stable chronic or 2 minor; add add modifier 95 for video, modifier 93 for phone [facility] Estab. patient 20-29min; 1 stable chronic or 2 minor; add add modifier 95 for video, modifier 93 for phone [facility] Body mass index (bmi) 25.0-25.9, adult Estab. patient 20-29min; 1 stable chronic or 2 minor; add add modifier 95 for video, modifier 93 for phone [facility]2024 Essential (primary) hypertensionType 2 diabetes mellitus with diabetic neuropathy, unspecifiedType 2 diabetes mellitus with proliferative diabetic retinopathy with macular edema, bilateralType 2 diabetes mellitus with other specified complication Estab. patient 20-29min; 1 stable chronic or 2 minor; add add modifier 95 for video, modifier 93 for phone [facility]24 Essential (primary) hypertensionType 2 diabetes mellitus with diabetic neuropathy, unspecifiedType 2 diabetes mellitus with proliferative diabetic retinopathy with macular edema, bilateralType 2 diabetes mellitus with other specified complication Estab. patient 20-29min; 1 stable chronic or 2 minor; add add modifier 95 for video, modifier 93 for phone [facility] [place] Estab. patient 20-29min; 1 stable chronic or 2 minor; add add modifier 95 for video, modifier 93 for phone [facility] [place] Estab. patient 10-29min; 1 minor problem; add add modifier 95 for video, modifier 93 for phone [facility] [place] Dizziness and giddiness Vital Signs Date of Collection Vitals 2022-06-25 09:08:03 Height - 154.94 cmWe ight - 66.23 kgBody Mass Index (BMI) - 27.59 kg/m2 2023-04-21 07:16:47 BP Diastolic - 60.0 mm[Hg]BP Systolic - 121.0 mm[Hg]Pain Scale - 5.0 {score} 2024-10-07 08:13:29 Weight - 66.23 kgBod y Mass Index (BMI) - 27.59 kg/m2Pain Scale - 0.0 {score} 2024-10-31 06:27:49 Height - 152.4 cmWei ght - 58.97 kgBody Mass Index (BMI) - 25.39 kg/m2BP Diastolic - 58.0 mm[Hg]BP Systolic - 121.0 mm[Hg]Pain Scale - 8.0 {score} Social History Social History Social History Observation Description Effec tive Time Current Smoking Status Former smoker 2024-10-29 3 Sex Female Gender identity Woman History of Procedures Procedures Service Procedure code Service date Servicing provider Phone# Medication List Documented (1159F) 1159F 2022-06-25 No Data Available No Data Nemo ilable Medication Review by prescribing provider or pharmacist documented (1160F) 1160F 2022-06-25 No Data Available No Data Nemo ilable Functional Status Assessed (1170F) 1170F 2022-06-25 No Data Available No Data Avail able Advance Care Directive Advance care planning discussion documented in the medical record (1158F) 1158F 2022-06-25 No Data Available No Data Availa ble BMI obtained (3008F) 3008F 2022-06-25 No Data Availab le No Data Available New patient,40-59min; chronic exacerbation, 2 stable chronic or 1 acute illness add add modifier 95 for video (do not use for phone, instead use 05100-11) 09102 2022-06-25 No Data Available No Data Availa ble No Data Available 53404 2022-10-29 No Data Available No Data Available No Data Available 32577 2022-10-31 No Data Available No Data Available Estab. patient 30-39min; chronic exacerbation, 2 stable chronic or 1 acute illness add add modifier 95 for video, (do not use for phone, instead use [id number]) 57350 2023-04-21 No Data Available No Data Availa ble Medication List Documented (1159F) 1159F 2023-04-21 No Data Available No Data Nemo ilable Medication Review by prescribing provider or pharmacist documented (1160F) 1160F 2023-04-21 No Data Available No Data Nemo ilable BMI obtained (3008F) 3008F 2023-04-21 No Data Availab le No Data Available Advance Care Directive Advance care planning discussion documented in the medical record (1158F) 1158F 2023-04-21 No Data Available No Data Availa ble Advance care planning discussed and documented ? advance care plan or surrogate decision-maker was documented in the medical record. (1123F) 1123F 2023-04-21 No Data Available No Data Availa ble Pain Assessment - Pain Documented on a Pain Scale (1125F) 1125F 2023-04-21 No Data Available No Data Nemo ilable SBP < 130 (3074F) 3074F 2023-04-21 No Data Available No Data Available DBP <80 (3078F) 3078F 2023-04-21 No Data Available No Data Available Functional Status Assessed (1170F) 1170F 2023-04-21 No Data Available No Data Avail able Estab. patient 30-39min; chronic exacerbation, 2 stable chronic or 1 acute illness add add modifier 95 for video, (do not use for phone, instead use [id number]) 45427 2024-02-17 No Data Available No Data Availa ble Medication List Documented (1159F) 1159F 2024-02-17 No Data Available No Data Nemo ilable Medication Review by prescribing provider or pharmacist documented (1160F) 1160F 2024-02-17 No Data Available No Data Nemo ilable Pain Assessment - NO pain present (1126F) 1126F 2024-02-17 No Data Available No Data A vailable Functional Status Assessed (1170F) 1170F 2024-02-17 No Data Available No Data Avail able No Data Available 35903 2024-03-15 No Data Available No Data Available Unlisted special service; to be used for medical record reviews and reporting CPTII codes (1111F, etc) 98885 2024-06-22 No Data Available No Data Availa ble SBP < 130 (3074F) 3074F 2024-06-22 No Data Available No Data Available DBP <80 (3078F) 3078F 2024-06-22 No Data Available No Data Available Estab. patient 10-29min; 1 minor problem; add add modifier 95 for video, modifier 93 for phone 28823 2024-10-07 No Data Available No Data Availa ble Pain Assessment - NO pain present (1126F) 1126F 2024-10-07 No Data Available No Data A vailable Medication List Documented (1159F) 1159F 2024-10-07 No Data Available No Data Nemo ilable Functional Status Assessed (1170F) 1170F 2024-10-07 No Data Available No Data Avail able Estab. patient 20-29min; 1 stable chronic or 2 minor; add add modifier 95 for video, modifier 93 for phone [id number] 2024-10-31 No Data Available No Data Availa ble Medication List Documented (1159F) 1159F 2024-10-31 No Data Available No Data Nemo ilable Medication Review by prescribing provider or pharmacist documented (1160F) 1160F 2024-10-31 No Data Available No Data Nemo ilable Functional Status Assessed (1170F) 1170F 2024-10-31 No Data Available No Data Avail able Advance Care Directive Advance care planning discussion documented in the medical record (1158F) 1158F 2024-10-31 No Data Available No Data Availa ble Advance care planning discussed and documented ? advance care plan or surrogate decision-maker was documented in the medical record. (1123F) 1123F 2024-10-31 No Data Available No Data Availa ble Pain Assessment - Pain Documented on a Pain Scale (1125F) 1125F 2024-10-31 No Data Available No Data Nemo ilable SBP < 130 (3074F) 3074F 2024-10-31 No Data Available No Data Available DBP <80 (3078F) 3078F 2024-10-31 No Data Available No Data Available BMI obtained (3008F) 3008F 2024-10-31 No Data Availab le No Data Available Most recent A1c (HbA1c) or GMI level 7-7.9% (3051F) 3051F 2024-10-31 No Data Available No Data Availa ble Estab. patient 10-29min; 1 minor problem; add add modifier 95 for video, modifier 93 for phone 27753 2024-11-08 No Data Available No Data Availa ble Functional Status Functional Category Effective Dates Cognition Status: Oriented to Person, Pl anaid and Time 2024-10-31 ADL: Bathing Independent , D ressing Independent , Eating Independent , Ambulation Needs Assistance , Transferring Independent and Toileting Independent 2024-10-31 IADL: Medication Independent , Meal Prep Needs Assistance , Shopping Needs Assistance , Driving or Public Transport Needs Assistance , Housework Needs Assistance , Finances Independent 2024-10-31 How many falls within the last 6 months? yes 2024-10-31 Near falls within the last 6 months? Non e 2024-10-31 Do you feel unsteady on your feet? Yes Do you worry about falling? Yes DME used with ambulation: [employer] 12-31-02 Social Supports - # of Inter actions with Friends/Family in a typical week: family 2024-10-31 Mental Status No Information Assessments Date of Service Assessments 2022-06-25 09:08:03 Type 2 diabetes ame itus with hyperlipidemiaHypertensionHyperlipidemiaVitamin B12 deficiencyVitamin D deficiencytype 2 diabetes with peripheral neuropathy 2022-10-29 07:40:04 Follow up plan for a cute symptoms: F/U 10/31/22 with JETT AguilarGastroenteritis 2022-10-31 08:05:29 Gastroenteritis 2023-04-21 07:16:47 Type 2 diabetes ame itus with hyperlipidemiaType 2 diabetes mellitus with proliferative diabetic retinopathy with macular edema, bilateralType 2 diabetes mellitus with other specified complicationtype 2 diabetes with peripheral neuropathyHypertensionVitamin B12 deficiencyVitamin D deficiency 2024-02-17 07:40:37 Type 2 diabetes ame itus with hyperlipidemiaType 2 diabetes mellitus with diabetic neuropathyHypertensionVitamin deficiencyType 2 diabetes mellitus with proliferative diabetic retinopathy with macular edema, bilateralVertigoAllergiesGERD (gastroesophageal reflux disease)Other problems related to medical facilities and other health care 2024-03-15 09:12:41 Follow up plan for a cute symptoms:Right arm painOther problems related to medical facilities and other health care 2024-10-07 08:13:29 Acute sinus infectio n 2024-10-31 06:27:49 Type 2 diabetes ame itus with hyperlipidemiaVitamin deficiencyType 2 diabetes mellitus with proliferative diabetic retinopathy with macular edema, bilateralVertigoAllergiesGERD (gastroesophageal reflux disease)Right arm painType 2 diabetes mellitus with diabetic neuropathyOther problems related to medical facilities and other health care 2024-11-08 11:01:48 Follow up plan for rosemary coronel symptoms: See belowDizziness Plan of Care Date of Service Plans 2022-06-25 09:08:03 Medication Review by prescribing provider or pharmacist documented (1160F)Medication List Documented (1159F)Functional Status Assessed (1170F)BMI obtained (3008F)Televideo new patient,40-59min; chronic exacerbation, 2 stable chronic or 1 acute illness add modifier 95Continue to see PCP. Follow-up with Yenny as needed for any acute or disease education needs that may arise.managed on rosuvastatin 40 mg, metformin 1000 mg BID, Lantus 7 units, pioglitazone 30 mg, Trulicity 0.75mg weeklyfollows with her transportation driver Dr. Craig yearlytakes her blood sugars daily in the Am and typically range in 100-150's was seeing [employer] delivery vehicle team technician however they have left and will be establishing her diabetic care with her PCPmanaged on lisinopril 10 mgcontinue to monitor for S&S of chest pain, discomfort, hypertensionmanaged on rosuvastatin 40 mg dailyfollows with PCPmanaged on b12 supplements daily monitor for S&S of bleeding, anemia symptomsmanages on vitamin D 1000 unit supplement dailymanaged on rosuvastatin 40 mg, metformin 1000 mg BID, Lantus 7 units, pioglitazone 30 mg, Trulicity 0.75mg weekly, gabapentin 100 mg BIDreports that she has numbness and tingling in her legs bilaterally left > rightcontinue to monitor for increasing pain and titrate medication with her PCPRemember to monitor daily glucose levels and call for hypo or hyperglycemia symptoms 2022-10-29 07:40:04 Phone (patient, pare nt, or guardian); 5-10 minutes of medical discussion (no modifier 95)Continue to see PCP. Follow-up with Yenny as needed for any acute or disease education needs that may arise 23/03.C/o nausea, vomiting, diarrhea, body aches x 2 daysDenies fever, but feels hot and sweaty.No sick contacts at home.BG 148 - fastingEncouraged fluids - pedialyte, gatorade and tylenol for aches. bland diet, nothing spicy or acidic. Will send in zofran. F/U scheduled for 10/31/22 with Warner Muir JETT. 2022-10-31 08:05:29 Televideo 20-29min; 1 stable chronic or 2 minor; add modifier 95Continue to see PCP. Follow-up with Yenny as needed for any acute or disease education needs that may arise 23/03.Former c/o nausea, vomiting, diarrhea, body aches. Today pt reports that she feels much better and her GI upset has resolved; in fact, she is out grocery shopping today. 2023-04-21 07:16:47 Medication Review by prescribing provider or pharmacist documented (1160F)Medication List Documented (1159F)Functional Status Assessed (1170F)Advance Care Directive Advance care planning discussion documented in the medical record (1158F)BMI obtained (3008F)SBP < 130 (3074F)DBP <80 (3078F)Televideo 30-39min; chronic exacerbation, 2 stable chronic or 1 acute illness add modifier 95Advance care planning discussed and documented ? advance care plan or surrogate decision-maker was documented in the medical record. (1123F)Pain Assessment - Pain Documented (1125F)Continue to see PCP. Follow-up with Yenny as needed for any acute or disease education needs that may arise.managed on rosuvastatin 40 mg, metformin 1000 mg BID, Lantus 7 units, pioglitazone 30 mg, Trulicity 0.75mg weeklyfollows with her transportation driver Dr. Craig yearlytakes her blood sugars daily in the Am and typically range in 100-150's was seeing seal delivery vehicle team technician however they have left and will be establishing her diabetic care with her PCP [facility] Update 04/21/23:Follows up with PCP every 3 months. Last visit 03/17/23.Follows up with Customer Service Officer, next appt 05/08/23. Last A1C reported by patient 6.1 from 03/17/23. No recent labs found on outside records. Reports Lantus was discontinued by PCP. Glucose at home today 92 mg/dl.Denies any acute complaint. Taking: DM:Lantus discontinued.metFORMIN ER 500 mg Tab ER 24hr TAKE 2 TABLETS BY MOUTH TWICE DAILY IN THE MORNING AND EVENINGPioglitazone 30 mg Tab TAKE 1 TABLET BY MOUTH EVERY MORNINGTrulicity 0.75 mg/0.5ML Solution Pen-injector INJECT ONE PEN (=0.75MG) SUBCUTANEOUSLY ONCE A WEEK DIRECTEDHL: Rosuvastatin Calcium 40 mg Tab TAKE 1 TABLET BY MOUTH EVERY EVENINGContinue treatment as prescribed, follow up as instructed.Monitor Glucose regularly.Contact CB 24/7 as needed.managed on rosuvastatin 40 mg, metformin 1000 mg BID, Lantus 7 units, pioglitazone 30 mg, Trulicity 0.75mg weekly, gabapentin 100 mg BIDreports that she has numbness and tingling in her legs bilaterally left > rightcontinue to monitor for increasing pain and titrate medication with her PCP [facility] Update 04/21/23:Follows up with PCP.Reports bilateral leg pain.Referred to Vascular specialist, has appt for evaluation tomorrow 04/22/23. Taking:Gabapentin 100 mg Cap TAKE 2 CAPSULES BY MOUTH TWICE DAILY IN THE MORNING AND EVENINGContinue treatment as prescribed, follow up as instructed.Contact CB 24/7 as needed.managed on lisinopril 10 mgcontinue to monitor for S&S of chest pain, discomfort, hypertension [facility] Update 04/21/23:Follows up with PCP every 3 months. Reports BP has been well controlled and Lisinopril decreased to 5 mg QDLast BP taken today at home:121/60.Taking:Lisinopril 5 mg Tab TAKE 1 TABLET BY MOUTH EVERY MORNINGDenies any acute complaint.Continue treatment as prescribed, follow up as instructed.Monitor BP regularly.Follow low Sodium diet. Monitor Glucose regularly.Contact CB 24/7 as needed.managed on b12 supplements daily monitor for S&S of bleeding, anemia symptomsECCA Update 04/21/23:Follows up with PCP.Denies any complaint.Taking:cyanocobalamin (vit B-12) 100 mcg tablet TAKE 1 TABLET BY MOUTH EVERY MORNINGmanages on vitamin D 1000 unit supplement daily [facility] Update 04/21/23:Follows up with PCP.Denies any complaint.Taking:cholecalciferol (vitamin D3) 25 mcg (1,000 unit) tablet TAKE 1 TABLET BY MOUTH EVERY MORNING 2024-02-17 07:40:37 Medication Review by prescribing provider or pharmacist documented (1160F)Medication List Documented (1159F)Functional Status Assessed (1170F)Advance Care Directive Advance care planning discussion documented in the medical record (1158F)Televideo 30-39min; chronic exacerbation, 2 stable chronic or 1 acute illness add modifier 95Advance care planning discussed and documented ? advance care plan or surrogate decision-maker was documented in the medical record. (1123F)Pain Assessment - NO pain documented (1126F)Continue to see PCP. Follow-up with Yenny as needed for any acute or disease education needs that may arise.DM: Lantus discontinued.metFORMIN ER 500 mg Tab ER 24hr TAKE 2 TABLETS BY MOUTH TWICE DAILY IN THE MORNING AND EVENINGPioglitazone 30 mg Tab TAKE 1 TABLET BY MOUTH EVERY MORNINGTrulicity 0.75 mg/0.5ML Solution Pen-injector INJECT ONE PEN (=0.75MG) SUBCUTANEOUSLY ONCE A WEEK DIRECTEDHLD: Rosuvastatin Calcium 40 mg Tab TAKE 1 TABLET BY MOUTH EVERY EVENINGNeuropathy: Gabapentin 100 mg Cap TAKE 2 CAPSULES BY MOUTH TWICE DAILY IN THE MORNING AND EVENINGLisinopril 5 mg Tab TAKE 1 TABLET BY MOUTH EVERY MORNINGVitamin B12 deficiency: cyanocobalamin (vit B-12) 100 mcg tablet TAKE 1 TABLET BY MOUTH EVERY MORNINGVit D deficiency: cholecalciferol (vitamin D3) 25 mcg (1,000 unit) tablet TAKE 1 TABLET BY MOUTH EVERY MORNINGnutritious diet for overall health and wellnesslabs and plan of care per PCPno report of any eye pain or vision changes ongoing monitoring and management as per eye specialistMeclizine 25 mg Tab 1 tablet orally TID prn dizzinessKetorolac Tromethamine 0.5 % Solution Ophthalmic 1 drop in both eyes BIDLoratadine 10 mg Tab TAKE 1 TABLET BY MOUTH EVERY MORNINGOmeprazole 20 mg Cap delayed rel TAKE 1 CAPSULE BY MOUTH EVERY MORNINGcall at onset of any s/sx of illness for prompt eval and plan of carecall if you need courtesy refillscall for symptomatic s/sx of high or low blood sugar/blood pressure-adjust plan of care accordingly 2024-03-15 09:12:41 Phone (patient, pare nt, or guardian); 5-10 minutes of medical discussion (no modifier 95)Continue to see PCP. Follow-up with Yenny as needed for any acute or disease education needs that may arise 23/03.Acute visit on 03/14 for right arm pain, per pt she moved it quickly and she started to have alot of pain. Started on Diclofenac gel, instructed heat/ice03/15: Follow up visit; Patient reports that the pain had decreased. She is following the instructions as indicated. Encouraged to call with any worsening sx.When member to call: 1. If bp is elevated sbp>150; dbp>90 or symptomatic-h/a, dizziness, cp, sob. 2. if there is a fall 3. if BS >300 or BS<90 or symptomatic; i.e., dizzy, off balance , shaky, general weakness. 4. if UTI symptoms arise-urinary frequency, dysuria, low abd pain. Please remember [facility]. Follow-up with Yenny as needed for any acute or disease education needs that may arise 23/03. 2024-06-22 12:36:41 Unlisted special ser vice; to be used for medical record reviews and reporting CPTII codes (1111F, etc)SBP < 130 (3074F)DBP <80 (3078F) 2024-10-07 08:13:29 Televideo 10-29min; 1 minor problem; add add modifier 95 for video, modifier 93 for phoneContinue to see PCP. Follow-up with Yenny as needed for any acute or disease education needs that may arise 23/03.10/07/24-patient seen for acute visit. Patient is experiencing a non productive cough with nasal congestion, headache, chills, sinus pressure, and left eye pressure and drainage. She is reporting intermittent dizziness. Rx for amoxicillin, prednisone, and benzonatate sent to local pharmacy. Encouraged to call CB if no improvement 48 hrs after initiating medication. 2024-10-31 06:27:49 Functional Status As sessed (1170F)Advance Care Directive Advance care planning discussion documented in the medical record (1158F)Advance care planning discussed and documented ? advance care plan or surrogate decision-maker was documented in the medical record. (1123F)Estab. patient 20-29min; 1 stable chronic or 2 minor; add add modifier 95 for video, modifier 93 for phoneMedication List Documented (1159F)Pain Assessment - Pain Documented on a Pain Scale (1125F)Medication Review by prescribing provider or pharmacist documented (1160F)BMI obtained (3008F)SBP < 130 (3074F)DBP <80 (3078F)Most recent A1c (HbA1c) or GMI level 7-7.9% (3051F)Continue to see PCP. Follow-up with [facility] as needed for any acute or disease education needs that may arise.FBG 120 (10/31/2024) outside care: A1C 7.0 ( 01/04/2024) Rx: metformin, pioglitazone, trulicity weight management, exercising regularly, eating a diet low in saturated or transfat, no smoking, and limiting alcohol intake.Rx: rosuvastatin weight management, exercising regularly, eating a diet low in saturated or transfat, no smoking, and limiting alcohol intake.Vitamin B12 deficiency: cyanocobalamin (vit B-12) 100 mcg tablet TAKE 1 TABLET BY MOUTH EVERY MORNINGVit D deficiency: cholecalciferol (vitamin D3) 25 mcg (1,000 unit) tablet TAKE 1 TABLET BY MOUTH EVERY MORNINGnutritious diet for overall health and wellnesslabs and plan of care per PCPno report of any eye pain or vision changes ongoing monitoring and management as per eye specialistlying still in a quiet, darkened room may help to ease any symptoms of nausea and reduce the sensation of spinning.Rx: LoratadinePatient to avoid triggers, if patient experiences exacerbations to call CB and pcpRx: omeprazole Don't lie down for at least 2 to 3 hours after eating small meals, avoid fatty foods, avoid spicy food, avoid chocolate, avoided caffeinated drinks, avoid alcoholic beverages.Acute visit on 03/14 for right arm pain, per pt she moved it quickly and she started to have alot of pain. Started on Diclofenac gel, instructed heat/ice03/15: Follow up visit; Patient reports that the pain had decreased. She is following the instructions as indicated. Encouraged to call with any worsening sx. 10/31/2024 chronic pain always has the painRx: gabapentin patient needs to watch for any warm, red, painful, and swollen symptoms. Elevating the lower extremities above the heart. avoid sitting for long periods.FALL CONTINGENCY PLANMember to call for the following symptoms: Blood sugar <80??/ BP <110/70??/ Fall??/ Vertigo/ WeaknessPlanned intervention: Encourage extra fluid intake / Assess for change in mental status and provide reassurance if none (patient's Baseline is 121/58) Review importance of sitting for two to three minutes prior to standing after laying down 2024-11-08 11:01:48 Televideo 10-29min; 1 minor problem; add add modifier 95 for video, modifier 93 for phoneContinue to see PCP. Follow-up with [facility] as needed for any acute or disease education needs that may arise 23/03.11/08/2024Start Meclizine 12.5 mg q 6 hours as needed. Change positions slowly. Recommend to follow up with PCP for further evaluation. Goals Date Goal 2022-06-25 Remember to check bl ood pressures on a routine basis and call your PCP for systolic > 140 or diastolic > 90 2022-06-25 Call me if you devel op any shortness of breath, increased palpitations, signs and symptoms of bleedingCall if you develop increased weakness, increased falls or impaired gait . 2022-06-25 Keep it up with your diabetic control and seeing your eye DrAmanda annually. 2023-04-21 Remember to keep all appointments with your PCP and specialists. Call CB 23/03 if you have questions or concerns. Discussed how to contact [facility] via phone or tablet. 23/03 phone number provided. 2024-10-31 At least 50% of time spent counseling pt, discussing diagnosis, treatment plan, compliance, and coordinating followup care. Continue taking medications as directed and keep all follow up appointments with established PCP and Specialist 2024-11-08 Continue taking medi cations as directed and keep all follow up appointments with established PCP and Specialist. Health Concerns Date Concern 2024-11-08 Visit completed via audio by telephone. Patient/Guardian agreed to visit via telehealth. 2024-11-08 Today, patient has c jovanaef complaint of: DizzinessSummary of acute complaint: Called related to tablet message of feeling dizzy. Member states that at midnight she turned her head to the right and started feeling dizzy. She couldn't even open her eyes. Reports that she feels dizzy on her left side. This nurse asked her to clarify left sided dizziness and she states that she feels heavy and very uncomfortable on the left side of her body, especially her head and neck. Hx of vertigo. This has happened in the past and she was told that inner crystals were off. She went for therapy to have crystal realigned. She thinks that the sudden movement in the night could have caused this. She is able to turn her head from side to side but it makes the dizziness worse. When she keeps her eyes closed she is not dizzy. She is able to move extremities normally. Has taken medicine in the past for dizziness (she cannot remember name) and it helped. Next PCP appt is 11/22/24.Denies nausea, vomiting, difficulty breathing, or chest pain. Her speech is not slurred during call. She states that she recently had a cough and still has a little cough with chest congestion. Member asks if mold in her apartment could cause symptoms. Explained that mold could cause upper respiratory symptoms. Applicable vital signs: BP- 127/60HR- 83O2- no pulse oximeterBG- 143Temp- denies fever, does not have thermometer# hours/days of symptoms: sudden onset last nightMedications/interventions member has tried for symptoms / result of interventions: keeping eyes closed-helps 2024-11-08 Most recent hospital stay(s) or ER visit(s) and precipitating factors: Denies
--- OUTSIDE RECORDS SUMMARY | 2024-11-10 11:47 | XMS_ITS | Clinical Summary ---
Author Organization [address] Address [address] [place] [phone] Phone Care Team Providers Care Operating Room Technician Name Role Phone Harshad Castle MD Primary Care Provider Allergies Active Allergy Reactions Criticality Noted Date Comments Iodinated Contrast Media 06/18/2015 SOB Medications gabapentin (NEURONTIN) 100 mg capsule TAKE 2 CAPSULES BY MOUTH TWICE DAILY IN THE MORNING AND EVENING 4 Active cyanocobalamin (VITAMIN B-12) 100 mcg tablet TAKE 1/2 TABLET BY MOUTH EVERY MORNING 4 Active alcohol swabs (Alcohol Prep Pads) pads, medicated Apply 1 Each topically 5 times daily. 4 Active lancets 33 gauge misc Apply 1 Strip topically 4 times daily. 4 Active aspirin 81 mg EC tablet Take 1 Tablet by mouth at bedtime. 4 Active cholecalciferol (VITAMIN D-3) 25 mcg (1,000 unit) tablet Take 1 tablet (1,000 Units total) by mouth 1 (one) time each day in the morning. 4 Active lisinopriL (PRINIVIL,ZESTR IL) 2.5 mg tablet Take 1 tablet (2.5 mg total) by mouth 1 (one) time each day. 4 Active loratadine (CLARITIN) 10 mg tablet Take 1 tablet (10 mg total) by mouth 1 (one) time each day in the morning. 4 Active metFORMIN (FORTAMET) 500 mg 24 hr tablet Two tabs BID 4 Active omeprazole (PriLOSEC) [address] capsule Take 1 capsule (20 mg total) by mouth 1 (one) time each day in the morning. 4 Active pioglitazone (ACTOS) 30 mg tablet Take 1 tablet (30 mg total) by mouth 1 (one) time each day. 4 Active rosuvastatin (CRESTOR) 40 mg tablet Take 1 tablet (40 mg total) by mouth 1 (one) time each day. 4 Active dulaglutide (Trulicity) 0.75 mg/0.5 mL pen injector injection Inject 0.75 mg into the skin once a week. 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 Donna ritter at [facility] Diabetic neuropathy 04/21/2017 BPPV (benign paroxysmal positional vertigo) 10/01 Obesity (BMI 30.0-34.9) 07/08/2016 Diverticulosis 06/18/2015 GERD (gastroesophageal reflux disease) 5 HTN (hypertension) 06/18/2015 Hyperlipidemia 06/18/2015 Osteoarthritis, knee 06/18/2015 Overview (06/01/2024): Bilateral Positive PPD 06/18/2015 Tubular adenoma of colon 06/18/2015 Type 2 diabetes mellitus with cataract 5 Type 2 diabetes mellitus wit h neurological manifestations, controlled 06/18/2015 Overview (06/01/2024): Sees Dr. Donna ritter at [facility] Encounters Date Type Department Care Team Description 09/09/2024 12:45 PM EST Consult Orthopedic Surgery - [address] [phone] Esteban Donato, CAROLYN Controlled type 2 diabetes with neuropathy (CMS/HCC) (Primary Dx); Arthritis of both feet; Pain in toes of both feet; Hammertoes of both feet; Dermatophytosis, nail from Last 3 Months Immunizations Name Administration [...] Type 2 diabetes mellitus wit h cataract (CMS/HCC) 06/18/2015 DX:Type 2 diabetes mellitus with cataract (HCC) BPPV (benign paroxysmal posi tional vertigo) 10/14/2016 DX:BPPV (benign paroxysmal p ositional vertigo) Type 2 diabetes mellitus wit h neurological manifestations, controlled ([facility]) 06/18/2015 DX:Type 2 diabetes mellitus with neurological manifestations, controlled ([facility]) Type 2 diabetes mellitus wit h eye manifestations ([facility]) 04/21/2017 DX:Type 2 diabetes mellitus with eye manifestations ([facility]) Diabetic retinopathy ([facility]) 04/21/2017 D X:Diabetic retinopathy ([facility]) Diabetic neuropathy ([facility]) 04/21/2017 DX :Diabetic neuropathy ([facility]) Tinnitus aurium, 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 DX:Ti nnitus aurium, bilateral Social History Tobacco Use Types Packs/Day Years Used Date Smoking Tobacco: Never Smokeless Tobacco: Never Tobacco Cessation:Counseling Given: Not Answered Alcohol Use Standard Drinks/Week Comments Not Asked 0 (1 standard drink = 0.6 oz pur e alcohol) Comments Unknown Sex and Gender Information Value Date Recorded Sex Assigned at Not on file Legal Sex Female 4:34 AM EST Gender Identity Not on file Sexual Orientation Not on file Obstetrics History Last Filed [...] AM EDT Office Visit Orthopedic Surgery - [place] [address] [phone] Esteban Donato, CAROLYN [address] [facility] [address] [place] [address] Health Maintenance Due Date Last Done Comments [...] Hepatitis C Screening Completed 03/15/2015 Pneumococcal Vaccine: 50+ Years Completed 08/01/2021, 07/08/2016 Breast Cancer Screening [...] patient's age to complete this topic Meningococcal B Vacine Aged Out No lo nger eligible based on patient's age to complete [...] Results * Urine Albumin Creatinine Ratio (01/04/2024) Urine Albumin Creatinine Ratio abstracted Result [facility] Provider HEALTH MAINTENANCE Final Result * (ABNORMAL) Hemoglobin A1c (01/04/2024) Hemoglobin A1C 7.0(A) <=6.5 % Blood Venous blood specimen / Unknown Result [facility] Provider LAB BLOOD ORDERABLES Kassidy l Result * Lipid panel (01/04/2024) LDL/HDL Ratio 2 0 - 4 Triglycerides 103 0 - 150 mg/dL Cholesterol 144 0 - 200 mg/dL HDL 88 >=40 mg/dL LDL Cholesterol 36 0 - 100 mg/dL Blood Venous blood specimen / Unknown Result [facility] Historical Provider LAB BLOOD ORDERABLES Kassidy l Result * DXA BONE DENSITY STUDY 1+ SITS [...] (World Health Organization Fracture Risk Assessment) [facility] Department of Internal Medicine recommends using National [...] (World Health Organization Fracture Risk Assessment) [facility] Department of Internal Medicine recommendsusing National Osteoporosis [...] over-estimation of fracture risk by FRAX. 3 us Liane Hutton MD IMG DXA PROCEDURES Final Result * SCREENING MAMMOGRAPHY BI 2-VIEW BREAST INC [...] Recommendation: Routine annual screening mammography is recommended Result [facility] Liane Hutton MD IMG XR PROCEDURES Final Result * Annual BMP Blood Test (11/05/2022) Annual BMP Blood Test abstracted Historical Provider HEALTH MAINTENANCE Final Result * Hepatitis C Screening (03/15/2015) Hepatitis C Screening abstarcted Historical Provider HEALTH MAINTENANCE Final Result from Last 3 Months or Most Recently Relevant to Health Maintenance Insurance [facility] [place] - [place] Care Teams Operating Room Technician Relationship Specialty Start Date End Date Harshad Castle MD [address] [place] [phone] PCP - General Internal Medicine 07/08/24
[2024-11-10 13:41] LABS: MANUAL DIFF FLAG NO
[2024-11-10 13:48] LABS: Basophils Percent Auto 0.6 % (0-2); Eosinophils Absolute Auto 0.1 X10*3/uL (0.0-0.4); Eosinophils Percent Auto 1.7 % (0-4); Hematocrit 36.2 % (37.0-47.0); Lymphocytes Absolute Auto 1.5 X10*3/uL (1.2-4.9); Lymphocytes Percent Auto 42.6 % (20-40); Mean Corpuscular HGB Conc 30.4 g/dl (31.0-35.0); Mean Corpuscular Hemoglobin 28.6 pg (27.0-33.0); Mean Platelet Volume 11.5 fL (9.4-12.3); Monocytes Absolute Auto 0.3 X10*3/uL (0.1-1.2); Monocytes Percent Auto 8.5 % (2-11); Neutrophils Absolute Auto 1.6 x10*3/uL (2.0-8.3); Neutrophils Percent Auto 46.6 % (45-73); Platelet Count 140 X10*3/uL (160-400); Red Blood Count 3.85 X10*6/uL (4.20-5.50); Red Cell Distribution Width 15.4 % (11.0-16.0); White Blood Count 3.4 X10*3/uL (4.8-10.8)
[2024-11-10 13:57] LABS: Estimated Average Glucose 151 mg/dL; Hemoglobin A1C 151.6675 umol/L; Hemoglobin A1c % 6.9 % (<6.0)
[2024-11-10 14:11] LABS: Creatinine Urine 39.87 mg/dL; Microalbumin Urine < 5.0 mg/L
[2024-11-10 14:12] LABS: Alanine Aminotransferase 14 U/L (0-31); Alkaline Phosphatase 60 U/L (39-117); Anion Gap 14 (12-20); Aspartate Amino Transferase 18 U/L (5-31); Bilirubin Total 0.5 mg/dL (0.0-1.0); Blood Urea Nitrogen 25 mg/dL (9-16); Carbon Dioxide 30 mmol/L (22-29); Chloride 103 mmol/L (96-108); Estimated Glomerular Filt Rate > 60; Glucose Random 132 mg/dL (60-115); Potassium 5.3 mmol/L (3.3-5.1); Sodium 142 mmol/L (135-145); Total Protein 7.2 g/dL (6.5-8.0)
== END 2024-11-10 09:46 | disposition home or self-care (01) ==
LOC: HO.HMGCLDS 09:45
PROVIDERS: PCP Internal Medicine; Visit Provider Internal Medicine
DX: E11.29 Type 2 diabetes mellitus with other diabetic kidney complication (principal); R80.9 Proteinuria, unspecified; Z79.4 Long term (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; E11.42 Type 2 diabetes mellitus with diabetic polyneuropathy; E11.21 Type 2 diabetes mellitus with diabetic nephropathy; M19.011 Primary osteoarthritis, right shoulder; M19.012 Primary osteoarthritis, left shoulder; E78.5 Hyperlipidemia, unspecified; I10 Essential (primary) hypertension
CPT/HCPCS: 36415; 80053; 82043; 82570; 83036; 85025

== ENCOUNTER 2024-11-15 11:44 | Outpatient (AMB) | payer MEDICARE, SELFPAY ==
[2024-11-15 11:46] VITALS: BP 110/62; PULSE 75; TEMP 36.6; O2SAT 95; BMI 25.9
--- NOTE | 2024-11-15 11:46 | A.OFFPC_ITS ---
Vital Signs 11/15/24 11:46 Height 5 ft 1 in Weight 137 lb 4 oz BMI 25.9 BP 110/62 Blood Pressure Location Lt brachial Position Sitting Pulse 75 Pulse Source Pulse Oximeter Temp 98 F Temp Source Oral Pulse Oximetry (%) 95 Oxygen Delivery Method Room Air Intake Visit Reasons: 3 month follow up Project Management Specialist Required: Yes Information Interpreted: clinical only Rn Flight: Present Accompanied by: Son Allergies Iodinated Contrast Media [IV DYE, IODINE CONTAINING] Allergy (Intermediate, Unverified 10/04/24 10:58) DYSPNEA Medication List - Last Reconciled 11/15/24 by Harshad Castle MD alcohol swabs (Alcohol Pads) 1 pad topical BID aspirin (Adult Low Dose Aspirin) 81 mg PO DAILY blood sugar diagnostic (FreeStyle Lite Strips) Check blood sugar two times daily as directed blood sugar diagnostic (OneTouch Verio test strips) Check blood sugar twice daily blood-glucose meter (FreeStyle Lite Meter kit) check blood sugar two times daily. blood-glucose meter (OneTouch Verio Flex Meter) Check blood sugar twice daily cyanocobalamin (vitamin B-12) 100 mcg PO .qod 90 days dulaglutide (Trulicity) 0.75 mg (0.5 mL) subcut QWEEK 90 days gabapentin 100 mg PO .qhs lancets (FreeStyle Lancets) Check blood sugar two times daily as directed lancets (OneTouch Delica Plus Lancet) Check blood sugar twice daily. lisinopril 10 mg PO DAILY 90 days metformin ER 1,000 mg (2 x 500 mg) PO BID omeprazole 20 mg PO DAILY pen needle, diabetic (BD Jennifer 2nd Gen Pen Needle) Once a day pioglitazone 30 mg PO DAILY 90 days polyethylene glycol 3350 (Miralax) 17 grams PO DAILY rosuvastatin 40 mg PO DAILY 90 days Tobacco use date assessed: 11/15/24 Fall risk assessment: 1 Fall in past year Last assessed Fall Risk: 11/15/24 Dental Screening Dental Screen Date: 11/15/24 Did you have a dental visit in the last 12 months?: No Did you have a dental problem in the last 6 months where you did not have access to dental care?: No Was dental information given to patient?: Patient declined HPI 3 month follow up HPI Details The patient is a 79-year-old female presenting with follow-up for dizziness and diabetes management, came in with her son who is assisting in communication - Recently experienced dizziness, which has improved after starting macluzine as needed. - Type 2 diabetes is stable with a blood glucose level of 137 mg/dL in the morning before meals. - Hemoglobin is noted to have decreased, now at 11 g/dL, after being 11.9 previously. - Describes residual flu-like symptoms, such as throat irritation and palpable neck lymph node following an illness two weeks ago. - Complains of left cheek pain on palpat ion, associated with clear nasal discharge since the flu - Elevated potassium level of 5.3 mEq/L noted, requiring dietary modifications. And repeat labs in 1 week - takes gabapentin 100 mg at night due t o diabetic neuropathy - GERD stable with omeprazole 20 mg denice y - continue rosuvastatin 40 for lipid con trol Problem List - Dizziness - Type 2 Diabetes Mellitus - Anemia - Allergic Rhinitis - sinusitis left maxillary along with rh initis - Hyperkalemia - lipid disorder - chronic GERD - diabetic neuropathy Diagnostic results - Labs: Blood glucose at 137 mg/dL; hemo globin decreased progressively from 11.9 g/dL to 11 g/dL; potassium level elevated at 5.3 mEq/L. - A1c level at 6.9%. Patient Instructions - Continue blood glucose monitoring regu larly. - Follow dietary modifications to avoid high potassium foods such as bananas. Repeat labs in 1 week - Use nasal spray at night for a couple of weeks to alleviate allergy symptoms. - Start antibiotics and monitor cheek sy mptoms. - continue medications - Schedule next follow-up appointment in three months. Review of Systems neurological: No headaches ear nose throat: No sore throat no hearing difficulty no ear pain cardiovascular: No syncope, no chest pain, no palpitations gastrointestinal: No nausea vomiting or diarrhea endocrine: No polyuria polydipsia no heat intolerance genitourinary: No dysuria skin: No new complaints Physical Exam general: No acute distress HEENT: Irritation in the throat, pain over the cheek left maxillary, ear exam within normal limit neck: Supple, palpable lymph node respiratory system: Able to talk in full sentences, no audible wheeze no stridor cardiovascular: S1-S2 gastrointestinal: No pain extremities: No new findings TELEVISION ANNOUNCER: Alert awake oriented x3 motor sensory intact skin: Normal turgor [facility] Medical History Diabetic nephropathy associated with type 2 diabetes mellitus Diabetic polyneuropathy associated with type 2 diabetes mellitus Diabetes type 2, controlled Proliferative diabetic retinopathy intermediate designer (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 Diabetes type 2, uncontrolled Dyslipidemia Hypertension Surgical History Hx of cholecystectomy Hx of hysterectomy Hx of carpal tunnel repair Hx of tonsillectomy Family History Son Family history of thyroid problem Mother No problems noted. Father No problems noted. Social History Household Members: Spouse Housing: Apartment Alcohol intake: never Patient Tobacco Use Status: Former Tobacco user e-Cigarette/Vaping Use: Never Used Current occupational status: unemployed Cognitive needs: No Hearing needs: Yes Vision needs: Yes Questionnaire PHQ-9 Over the last 2 weeks, how often have you been bothered by any of the following problems? 1. Little interest or pleasure in doing things: several days 2. Feeling down, depressed, or hopeless: not at all 3. Trouble falling or staying asleep, or sleeping too much: not at all 4. Feeling tired or having little energy: not at all 5. Poor appetite or overeating: not at all 6. Feeling bad about yourself - or that you are a failure or have let yourself or your family down: not at all 7. Trouble concentrating on things, such as reading the newspaper or watching television: not at all 8. Moving or speaking so slowly that other people could have noticed. Or the opposite - being so fidgety or restless that you have been moving around a lot more than usual: not at all 9. Thoughts that you would be better off or of hurting yourself in some way: not at all Total score: 1 Depression Screening Interpretation: Negative Depression Screening Done: Yes 61271 - PHQ-9 Billing: Yes Source: Developed by Drs. Jorge Guzman, Madina Hinojosa, Luke Browning and colleagues, with an educational lissy from [employer]. Thrive Questionnaire Date Thrive assessed: 11/15/24 I am a: Patient What is your living situation today?: I have a steady place to live Within the past 12 months, did the food you bought not last and you didn't have the money to get more?: Never true Within the past 12 months, did you worry whether your food would run out before you got money to buy more?: Never true Do you have trouble paying for medicines?: No Do you have trouble getting transportation to medical appointments?: No Do you have trouble paying your heating and electricity bill?: No Do you have trouble taking care of your child, family member or friend?: No Do you have trouble with day-to-day activities such as bathing, preparing meals, shopping, managing finances, etc.?: Yes Are you currently unemployed and looking for a job?: No Are you interested in more education?: No Please select the resources that you would like help with: None Currently or been in a relationship where the following occur: No concerns reported THRIVE Score: 0 AUDIT C Alcohol Use Questionnaire (AUDIT-C) 1. How often do you have a drink containing alcohol?: Never 3. How often do you have six or more drinks on one occasion?: Never Total Score: 0 Score Reviewed/Action Taken: Yes JOEY-7 AMB Questionnaire JOEY-7 Date JOEY - 7 assessed: 11/15/24 Feeling nervous, anxious, or on edge: 0 = Not at all Not being able to stop or control worryin = Not at all Worrying too much about different things: 0 = Not at all Trouble relaxin = Not at all Being so restless that it is hard to sit still: 0 = Not at all Becoming easily annoyed or irritable: 0 = Not at all Feeling afraid as if something awful might happen: 0 = Not at all Total JOEY-7 score (0-4 normal; 5-9 mild; 10-14 moderate; 15-21 severe): 0 Source: Developed by Drs. Jorge Guzman, Madina Hinojosa, Luke Browning and colleagues, with an educational lissy from [employer]. JOEY-7 Assessment Billing JOEY-7 Assessment Tool: JOEY-7 Assessment 17624 Physical exam (Primary Care) Vital Signs: Last Vital Signs Temp 98 F 11/15/24 11:46 Pulse 75 11/15/24 11:46 BP 110/62 11/15/24 11:46 Pulse Ox 95 11/15/24 11:46 Oxygen Delivery Method Room Air 11/15/24 11:46 BMI result Body Mass Index 25.9 Tobacco/Smoking Status: Tobacco use Status Tobacco use date assessed 11/15/24 11/15/24 11:55 Patient Tobacco Use Status Former Tobacco user 11/15/24 11:47 e-Cigarette/Vaping Use Never Used 11/15/24 11:55 PHQ-9: PHQ-9 Score PHQ-9: Total score 1 11/15/24 12:22 Depression Screening Interpretation: Negative Thrive Assessment: Date of Thrive Assessment Date Thrive assessed 11/15/24 11/15/24 11:55 Currently or been in a relationship where the following occur: No concerns reported Coding Level of Care Code Est Pt Level 5 (20163) Complex EM visit Add On G2211 Diagnoses High potassium E87.5 Acute non-recurrent maxillary sinusitis J01.00 Recurrence: non-recurrent Vertigo R42 Controlled type 2 diabetes mellitus with microalbuminuria, with long-term current use of insulin E11.29; R80.9; Z79.4 Diabetes mellitus complication detail: with microalbuminuria Diabetes mellitus complication status: with kidney complications Diabetes mellitus termite exterminator insulin use: with termite exterminator use Diabetic polyneuropathy associated with type 2 diabetes mellitus E11.42 Diabetic nephropathy associated with type 2 diabetes mellitus E11.21 Dyslipidemia E78.5 Essential hypertension I10 Hypertension type: essential hypertension Stable proliferative diabetic retinopathy of both eyes associated with type 2 diabetes mellitus E11.3553 Diabetes mellitus type: type 2 Laterality: bilateral Proliferative retinopathy type: stable Primary osteoarthritis of both shoulders M19.011; M19.012 Osteoarthritis type: primary Additional Codes JOEY-7 Assessment Billing - JOEY-7 Assessment Tool: JOEY-7 Assessment 43737 ([id number]) PHQ-9 - 00184 - PHQ-9 Billing: Yes ([id number]) Assessment & Plan Assessment & Plan (1) High potassium: Code(s): E87.5 - Hyperkalemia Category: Medical (2) Acute maxillary sinusitis: Code(s): J01.00 - Acute maxillary sinusitis, unspecified Category: Medical Qualifiers: Recurrence: non-recurrent Qualified Code(s): J01.00 - Acute maxillary sinusitis, unspecified (3) Vertigo: Code(s): R42 - Dizziness and giddiness Category: Medical (4) Diabetes type 2, controlled: Code(s): E11.9 - Type 2 diabetes mellitus without complications Category: Medical Qualifiers: Diabetes mellitus complication detail: with microalbuminuria Diabetes mellitus complication status: with kidney complications Diabetes mellitus skilled nursing insulin use: with skilled nursing use Qualified Code(s): E11.29 - Type 2 diabetes mellitus with other diabetic kidney complication; R80.9 - Proteinuria, unspecified; Z79.4 - intermediate designer (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 (5) Diabetic polyneuropathy associated with type 2 diabetes mellitus: Code(s): E11.42 - Type 2 diabetes mellitus with diabetic polyneuropathy Category: Medical (6) Diabetic nephropathy associated with type 2 diabetes mellitus: Code(s): E11.21 - Type 2 diabetes mellitus with diabetic nephropathy Category: Medical (7) Dyslipidemia: Code(s): E78.5 - Hyperlipidemia, unspecified Category: Medical (8) Hypertension: Code(s): I10 - Essential (primary) hypertension Category: Medical Qualifiers: Hypertension type: essential hypertension Qualified Code(s): I10 - Essential (primary) hypertension (9) Proliferative diabetic retinopathy: Code(s): E11.3599 - Type 2 diabetes mellitus with proliferative diabetic retinopathy without macular edema, unspecified eye Category: Medical Qualifiers: Diabetes mellitus type: type 2 Laterality: bilateral Proliferative retinopathy type: stable Qualified Code(s): E11.3553 - Type 2 diabetes mellitus with stable proliferative diabetic retinopathy, bilateral (10) Osteoarthritis of shoulders, bilateral: Code(s): M19.011 - Primary osteoarthritis, right shoulder; M19.012 - Primary osteoarthritis, left shoulder Category: Medical Qualifiers: Osteoarthritis type: primary Qualified Code(s): M19.011 - Primary osteoarthritis, right shoulder; M19.012 - Primary osteoarthritis, left shoulder Plan The patient is a 79-year-old female presenting with follow-up for dizziness and diabetes management, came in with her son who is assisting in communication - Recently experienced dizziness, which has improved after starting macluzine as needed. - Type 2 diabetes is stable with a blood glucose level of 137 mg/dL in the morning before meals. - Hemoglobin is noted to have decreased, now at 11 g/dL, after being 11.9 previously. - Describes residual flu-like symptoms, such as throat irritation and palpable neck lymph node following an illness two weeks ago. - Complains of left cheek pain on palpation, associated with clear nasal discharge since the flu - Elevated potassium level of 5.3 mEq/L noted, requiring dietary modifications. And repeat labs in 1 week - takes gabapentin 100 mg at night due to diabetic neuropathy - GERD stable with omeprazole 20 mg daily - continue rosuvastatin 40 for lipid control Problem List - Dizziness - Type 2 Diabetes Mellitus - Anemia - Allergic Rhinitis - sinusitis left maxillary along with rhinitis - Hyperkalemia - lipid disorder - chronic GERD - diabetic neuropathy Diagnostic results - Labs: Blood glucose at 137 mg/dL; hemoglobin decreased progressively from 11.9 g/dL to 11 g/dL; potassium level elevated at 5.3 mEq/L. - A1c level at 6.9%. Patient Instructions - Continue blood glucose monitoring regularly. - Follow dietary modifications to avoid high potassium foods such as bananas. Repeat labs in 1 week - Use nasal spray at night for a couple of weeks to alleviate allergy symptoms. - Start antibiotics and monitor cheek symptoms. - continue medications - Schedule next follow-up appointment in three months. 40 minutes spent in care of this patient, including discussion with patient's son Orders: Orders Basic Metabolic Panel Today E87.5 - Hyperkalemia Medications: New fluticasone propionate 50 mcg/actuation (Flonase Allergy Relief) administer into each nostril 1 spray intranasal DAILY 16 grams 0RF amoxicillin 875 mg PO BID 14 tabs 0RF 7 days Refilled metformin ER 1,000 mg (2 x 500 mg) PO BID 360 tabs 2RF E11.65 - Type 2 diabetes mellitus with hyperglycemia pioglitazone 30 mg PO DAILY 90 tabs 2RF 90 days E11.65 - Type 2 diabetes mellitus with hyperglycemia rosuvastatin 40 mg PO DAILY 90 tabs 1RF 90 days E78.5 - Hyperlipidemia, unspecified
--- OUTSIDE RECORDS SUMMARY | 2024-11-15 14:12 | XMS_ITS | Encounter Summary ---
Author Organization [facility] Address [address] [place] [address] Care Team Providers Care Product Representative Name Role Phone Harshad Castle MD Primary Care Provider [phone] Reason for Visit * Reason Comments DM Foot Care Fu dm foot care Encounter Details Date Type Department Care Team (Late st Contact Info) Description 11/14/2024 10:30 AM EDT Office Visit Orthopedic Surgery - [place] [address] [facility] [address] [place] [id number] Esteban Donato DPM [address] [facility] [address] [place] [address] Controlled type 2 diabetes with neuropathy (CMS/HCC) (Primary Dx); Arthritis of both feet; Pain in toes of both feet; Dermatophytosis, nail Social History [...] on file Sexual Orientation Not on file documented as of this encounter Last Filed Vital Signs Vital Sign Reading Time Taken Comments Blood Pressure - - Pulse - - Temperature - - Respiratory Rate - - Oxygen Saturation - - Inhaled Oxygen Concentration - - Weight 59.9 kg (132 lb) 11/14/2024 10:48 AM EDT Height 154.9 cm (5' 0.98 ) 11/14/2024 10:48 AM E DT Body Mass Index 24.95 11/14/2024 10:48 AM EDT documented in this encounter Progress Notes * Esteban Donato DPM - 11/14/2024 10:30 AM EDT Referring MD: Tin Last PCP visit: 08/10/2024 IDENTIFIER: @DIDI Hoyos is a 79 y.o. year old female who presents for consultation. CC: Bilateral foot pain HPI: Returns office for multiple forefoot deformities Patient states that they have been diabetic for the past few years and have had minimal complications. Denies any history of ulceration, or infection. Patient relates that her nails continue to be thickened and misshapened causing pressure in close toed shoes Patient is wearing good supportive shoes at this time. Patient relates that she has multiple calluses to the plantar heel bilaterally Patient with minimal other pedal complaints at this time. Patient's FBS this AM was 121 Recent A1C is %. 7.1 ROS: GENERAL: [...] HTN (hypertension) Hyperlipidemia NPDR (nonproliferative diabetic retinopathy) ([facility]) Obesity (BMI 30.0-34.9) Osteoarthritis, knee Positive PPD Tinnitus aurium, bilateral Tubular adenoma of colon Type 2 diabetes mellitus with cataract ([facility]) Type 2 diabetes mellitus with eye manifestations ([facility]) Diabetic neuropathy ([facility]) Type 2 diabetes mellitus with neurological manifestations, controlled ([facility]) SOCIAL HISTORY: Social History Tobacco Use Smoking status: Never Smokeless tobacco: Never Substance Use Topics Alcohol use: Not on file ACTIVE MEDICATIONS: Outpatient Medications Marked as Taking for the 11/14/24 encounter (Office Visit) with Esteban Donato DPM Medication Sig Dispense Refill alcohol swabs (Alcohol Prep Pads) pads, medicated Apply 1 Each topically 5 times daily. aspirin 81 mg EC tablet Take 1 Tablet by mouth at bedtime. blood sugar diagnostic ([employer] Verio test strips) test strip TEST BLOOD [...] Sharp/dull sensation intact, protective sensation diminished on [place]. Multiple peripheral neuropathies bilaterally. ORTHOPEDIC: Good muscle [...] Pain in toes of both feet 4. Dermatophytosis, nail PLAN: Pt was seen and examined, history reviewed. Patient was once again educated on the importance of keeping tight glucose control in order to limit chance of ulcerations or infections and nonhealing wounds of the future Patient was encouraged to wear supportive shoe as often as possible to limit breakdown of the midtarsal joint and symptomatic flareups of arthritic change in the feet bilaterally Patient understands that with the contractures of her digits she is getting increased pressure to the distal beatris of the lesser toes. Patient encouraged to wear a hammertoe crutch daily to limit this pressure Nail debridement performed to nails 1-5 bilateral [...] Care Team (Late st Contact Info) Description 01/17/2025 10:00 AM EDT Office Visit Orthopedic Surgery - [place] [address] [phone] Esteban Donato DPM [address] [address] documented as of this encounter Visit Diagnoses Diagnosis Controlled type 2 diabetes with neuropathy (CMS/HCC)- Primary Type II or unspecified type diabetes mellitus with neurological manifestations, not stated as uncontrolled Arthritis of both feet Pain in toes of both feet Dermatophytosis, nail Dermatophytosis of nail documented in this encounter Care Teams Product Representative Relationship Specialty Start Date End Date Harshad Castle MD [address] [place] [address] PCP - General Internal Medicine 07/08/24 documented as of this encounter
--- OUTSIDE RECORDS SUMMARY | 2024-11-15 14:12 | XMS_ITS ---
Author Name Sarwat FARRELL MS. Goldencarrie Fernándeze Address [address] [place] [address] Phone [phone] [facility] Care Team Providers Care Double Corner Cutter Name Role Phone Rose Fam Unavailable [phone] Unavailable Unavailable Unavailable Mari Orellana Unavailable Unavailable JOSH DAILEY Unavailable [phone] Reason for Referral Not Available Allergies, adverse [...] 2022-01-02 No Data Available OneTouch Delica Plus [id number] Miscellaneous TEST BLOOD SUGAR 4 TIMES A [...] Resolved 2024-10-07 3-03 Other problems related to [facility] facilities and other health care Active 2024-10-31 N/A Allergies Active 2024-02-17 N/A Dizziness Active 2024-02-17 N/A Encounters Encounters Type Facility Date of Service Diagnosis/Co mplaint Medication List Documented (1159F[place] [facility]ication List Documented (1159F[place] [facility]ication [place] Documented (1159F[place] [facility] Medication List Documented (1159F[place] [facility] Medication List Documented (1159F[place] [facility] [place] Medication List Documented (1159F[place] [facility] Type 2 diabetes mellitus wit h other specified complicationHyperlipidemia, unspecifiedOther specified diabetes mellitus with diabetic polyneuropathyEssential (primary) hypertensionDeficiency of other specified B group vitaminsVitamin D deficiency, unspecified No Data Available [facility] [place] Noninfective gastroenteritis and colitis, unspecified No Data Available [facility] [place] Noninfective gastroenteritis and colitis, unspecified Estab. patient 30-39min; chronic exacerbation, 2 stable chronic or 1 acute illness add add modifier 95 for video, (do not use for phone, instead use 77924-83) [facility] [place] Type 2 diabetes mellitus wit h [...] (do not use for phone, instead use 47430-09) [facility] [place] Estab. patient 30-39min; chronic exacerbation, 2 stable chronic or 1 acute illness add add modifier 95 for video, (do not use for phone, instead use 98907-78) [facility] [place] Estab. patient 30-39min; chronic exacerbation, 2 stable chronic or 1 acute illness add add modifier 95 for video, (do not use for phone, instead use 58740-31) [facility] [place] Estab. patient 30-39min; chronic exacerbation, 2 stable chronic or 1 acute illness add add modifier 95 for video, (do not use for phone, instead use 03174-03) [facility] [place] Estab. patient 30-39min; chronic exacerbation, 2 stable chronic or 1 acute illness add add modifier 95 for video, (do not use for phone, instead use 00973-14) [facility] [place] Estab. patient 30-39min; chronic exacerbation, 2 stable chronic or 1 acute illness add add modifier 95 for video, (do not use for phone, instead use 51262-72) [facility] [place] Estab. patient 30-39min; chronic exacerbation, 2 stable chronic or 1 acute illness add add modifier 95 for video, (do not use for phone, instead use 31460-41) [facility] [place] Estab. patient 30-39min; chronic exacerbation, 2 stable chronic or 1 acute illness add add modifier 95 for video, (do not use for phone, instead use 72852-89) [facility] [place] Estab. patient 30-39min; chronic exacerbation, 2 stable chronic or 1 acute illness add add modifier 95 for video, (do not use for phone, instead use 72168-12) [facility] [place] Estab. patient 30-39min; chronic exacerbation, 2 stable chronic or 1 acute illness add add modifier 95 for video, (do not use for phone, instead use 98942-29) [facility] [place] Type 2 diabetes mellitus [...] (do not use for phone, instead use 20165-88) [facility] [place] Estab. patient 30-39min; chronic exacerbation, 2 stable chronic or 1 acute illness add add modifier 95 for video, (do not use for phone, instead use 24523-30) [facility] [place] Estab. patient 30-39min; chronic exacerbation, 2 stable chronic or 1 acute illness add add modifier 95 for video, (do not use for phone, instead use 59213-41) [facility] [place] Estab. patient 30-39min; chronic exacerbation, 2 stable chronic or 1 acute illness add add modifier 95 for video, (do not use for phone, instead use 77275-78) [facility] [place] No Data Available [facility] [place]24 Pain In Right ArmOther probl ems related to medical facilities and other health care Unlisted special service; to be used for medical record reviews and reporting CPTII codes (1111F, etc) [facility] [place] Other specified counseling Unlisted special service; to be used for medical record reviews and reporting CPTII codes (1111F, etc) [facility] [place] Unlisted special service; to be used for medical record reviews and reporting CPTII codes (1111F, etc) [facility] [place] Estab. patient 10-29min; 1 minor problem; add add modifier 95 for video, modifier 93 for phone [facility] [place]24 Acute sinusitis, unspecified Estab. patient 10-29min; 1 minor problem; add add modifier 95 for video, modifier 93 for phone [facility] [place] Estab. patient 10-29min; 1 minor problem; add add modifier 95 for video, modifier 93 for phone [facility] [place] Estab. patient 10-29min; 1 minor problem; add add modifier 95 for video, modifier 93 for phone [facility] [place] Estab. patient 20-29min; 1 stable chronic or 2 minor; add add modifier 95 for video, modifier 93 for phone [facility] [place]2024 Type 2 diabetes mellitus wit h other specified complicationHyperlipidemia, unspecifiedType 2 diabetes mellitus with diabetic neuropathy, unspecifiedVitamin deficiency, unspecifiedType 2 diabetes mellitus with proliferative diabetic retinopathy with macular edema, bilateralDizziness and giddinessOther problems related to medical facilities and other health care Estab. patient 20-29min; 1 stable chronic or 2 minor; add add modifier 95 for video, modifier 93 for phone [facility] [place] Estab. patient 20-29min; 1 stable chronic or 2 minor; add add modifier 95 for video, modifier 93 for phone [facility] [place] Estab. patient 20-29min; 1 stable chronic or 2 minor; add add modifier 95 for video, modifier 93 for phone [facility] Estab. patient 20-29min; 1 stable chronic or 2 minor; add add modifier 95 for video, modifier 93 for phone [facility]/20[place] Estab. patient 20-29min; 1 stable chronic or 2 minor; add add modifier 95 for video, modifier 93 for phone [facility] [place]/31/2024 Estab. patient 20-29min; 1 stable chronic or 2 minor; add add modifier 95 for video, modifier 93 for phone [facility]/20[place] Estab. patient 20-29min; 1 stable chronic or 2 minor; add add modifier 95 for video, modifier 93 for phone [facility]/2024 Estab. patient 20-29min; 1 stable chronic or 2 minor; add add modifier 95 for video, modifier 93 for phone [facility]/2024 Estab. patient 20-29min; 1 stable chronic or 2 minor; add add modifier 95 for video, modifier 93 for phone [facility]/2024 Estab. patient 20-29min; 1 stable chronic or 2 minor; add add modifier 95 for video, modifier 93 for phone [facility]/2024 Estab. patient 10-29min; 1 minor problem; add add modifier 95 for video, modifier 93 for phone [facility] 11/08/2024 Dizziness and giddiness [...] Time Current Smoking Status Former smoker 2024-10-29 8 Sex Female Gender identity Woman History of [...] (do not use for phone, instead use 47577-83) 57713 2022-06-25 No Data Available No Data Availa ble No Data Available [id number] 2022-10-29 No Data Available No Data Available No Data Available 43142 2022-10-31 No Data Available No Data Available Estab. patient 30-39min; chronic exacerbation, 2 stable chronic or 1 acute illness add add modifier 95 for video, (do not use for phone, instead use 48096-50) 66099 2023-04-21 No Data Available No Data Availa [...] (do not use for phone, instead use 53793-83) 67072 2024-02-17 No Data Available No Data Availa [...] No Data Avail able No Data Available 59450 2024-03-15 No Data Available No Data Available Unlisted special service; to be used for medical record reviews and reporting CPTII codes (1111F, etc) 11585 2024-06-22 No Data Available No Data Availa ble SBP < 130 (3074F) 3074F 2024-06-22 No Data Available No Data Available DBP <80 (3078F) 3078F 2024-06-22 No Data Available No Data Available Estab. patient 10-29min; 1 minor problem; add add modifier 95 for video, modifier 93 for phone 26387 2024-10-07 No Data Available No Data Availa [...] 95 for video, modifier 93 for phone 93589 2024-10-31 No Data Available No Data Availa [...] 95 for video, modifier 93 for phone 07822 2024-11-08 No Data Available No Data Availa [...] you feel unsteady on your feet? Yes 2 Do you worry about falling? Yes DME [...] for a cute symptoms: F/U 10/31/22 with [facility] APPGastroenteritis 2022-10-31 08:05:29 Gastroenteritis 2023-04-21 07:16:47 Type 2 [...] care 2024-11-08 11:01:48 Follow up plan for a cute symptoms: See belowDizziness Plan of Care Date [...] 30 mg, Trulicity 0.75mg weeklyfollows with her ornament maker hand Dr. Craig yearlytakes her blood sugars daily in the Am and typically range in 100-150's was seeing photoengraving proofer apprentice however they have left and will be [...] in zofran. F/U scheduled for 10/31/22 with [facility] [place] JET[facility]. 2022-10-31 08:05:29 Televideo 20-29min; 1 stable [...] 30 mg, Trulicity 0.75mg weeklyfollows with her ornament maker hand Dr. Craig yearlytakes her blood sugars daily in the Am and typically range in 100-150's was seeing photoengraving proofer apprentice however they have left and will be establishing her diabetic care with her PCP [facility] Update 04/21/23:Follows up with PCP every 3 months. Last visit 03/17/23.Follows up with Surgical Device Sales Representative, next appt 05/08/23. Last A1C reported by [...] low abd pain. [facility]. Follow-up with Yenny [...] 7-7.9% (3051F)Continue to see PCP. Follow-up with Yenny as [...] for phoneContinue to see PCP. [facility] with [facility] as needed for any acute or disease [...] questions or concerns. Discussed how to contact [facility] via phone or tablet. 23/03 phone number [...] via telehealth. 2024-11-08 Today, patient has c hief complaint of: DizzinessSummary of acute complaint: Called [...]
--- OUTSIDE RECORDS SUMMARY | 2024-11-15 14:12 | XMS_ITS | Clinical Summary ---
Author Organization [address] Address [address] [place] [phone] Phone Care Team Providers Care Staff Accountant Name Role Phone Harshad Castle MD Primary Care Provider [phone] Allergies Active Allergy Reactions Criticality Noted Date [...] Overview (06/01/2024): Sees Dr. Donna ritter at [facility] Diabetic neuropathy 04/21/2017 BPPV (benign paroxysmal [...] Overview (06/01/2024): Sees Dr. Donna ritter at [facility] Encounters Date Type Department Care Team Description 11/14/2024 10:30 AM EDT Office Visit Orthopedic Surgery [address] [phone] Esteban Donato, CAROLYN Controlled type 2 diabetes with neuropathy (CMS/HCC) (Primary Dx); Arthritis of both feet; Pain in toes of both feet; Dermatophytosis, nail 09/09/2024 12:45 PM EST Consult Orthopedic Surgery - [place] [address] [facility] [address] [place] [address] Esteban Donato DPM Controlled type 2 diabetes with neuropathy (CMS/HCC) [...] Type 2 diabetes mellitus wit h cataract ([facility]) 06/18/2015 DX:Type 2 diabetes mellitus with cataract ([facility]) BPPV (benign paroxysmal posi tional vertigo) 10/14/2016 DX:BPPV (benign paroxysmal p ositional vertigo) Type 2 diabetes mellitus wit h neurological manifestations, controlled ([facility]) 06/18/2015 DX:Type 2 diabetes mellitus with neurological manifestations, controlled ([facility]) Type 2 diabetes mellitus wit h eye manifestations ([facility]) 04/21/2017 DX:Type 2 diabetes mellitus with eye manifestations ([facility]) Diabetic retinopathy ([facility]) 04/21/2017 D X:Diabetic retinopathy ([facility]) Diabetic neuropathy ([facility]) 04/21/2017 DX :Diabetic neuropathy ([facility]) Tinnitus aurium, 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 DX:Ti nnitus aurium, [...] Mass Index 24.95 11/14/2024 10:48 AM EDT Plan of Treatment Upcoming Encounters Date Type Department Care Team (Late st Contact Info) Description 01/17/2025 10:00 AM EDT Office Visit Orthopedic Surgery - [address] [phone] Esteban Donato, DPM [address] [facility] [address] [place] [address] Health Maintenance Due Date Last Done Comments [...] * Urine Albumin Creatinine Ratio (01/04/2024) Pathologist [facility] Urine Albumin Creatinine Ratio abstracted us Historical Provider HEALTH MAINTENANCE Final Result * (ABNORMAL) Hemoglobin A1c (01/04/2024) Pathologist [facility] Hemoglobin A1C 7.0(A) <=6.5 % Blood Venous blood specimen / Unknown Historical Provider LAB BLOOD ORDERABLES Kassidy l Result * Lipid panel (01/04/2024) LDL/HDL Ratio 2 0 - 4 Triglycerides 103 0 - 150 mg/dL Cholesterol 144 0 - 200 mg/dL HDL 88 >=40 mg/dL LDL Cholesterol 36 0 - 100 mg/dL Blood Venous blood specimen / Unknown us Historical Provider LAB BLOOD ORDERABLES Kassidy ramirez Result * DXA BONE DENSITY STUDY 1+ [...] (World Health Organization Fracture Risk Assessment) [facility] Department of Internal Medicine recommends [...] (World Health Organization Fracture Risk Assessment) [facility] Department of Internal Medicine recommendsusing [...] FRAX. 3 Liane Hutton MD IMG DXA PROCEDURES Final [...] is recommended Liane Hutton MD IMG XR PROCEDURES Final Result * Annual BMP Blood Test (11/05/2022) Annual BMP Blood Test abstracted Result [facility] Historical Provider HEALTH MAINTENANCE Final Result * Hepatitis C Screening (03/15/2015) Hepatitis C Screening abstarcted Historical Provider HEALTH MAINTENANCE Final Result from Last 3 Months or Most Recently Relevant to Health Maintenance Insurance [facility] MEDICAID - [place] Care Teams Staff Accountant Relationship Specialty Start Date End Date Harshad Castle MD [address] [place] [phone] PCP - General Internal Medicine 07/08/24
== END 2024-11-15 12:16 | disposition home or self-care (01) ==
LOC: HO.HMCC 11:44
PROVIDERS: PCP Internal Medicine; Visit Provider Internal Medicine
DX: E87.5 Hyperkalemia (principal); J01.00 Acute maxillary sinusitis, unspecified; R42 Dizziness and giddiness; E11.29 Type 2 diabetes mellitus with other diabetic kidney complication; R80.9 Proteinuria, unspecified; Z79.4 Long term (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; E11.42 Type 2 diabetes mellitus with diabetic polyneuropathy; E11.21 Type 2 diabetes mellitus with diabetic nephropathy; E78.5 Hyperlipidemia, unspecified; I10 Essential (primary) hypertension; E11.3553 Type 2 diabetes mellitus with stable proliferative diabetic retinopathy, bilateral; M19.011 Primary osteoarthritis, right shoulder; M19.012 Primary osteoarthritis, left shoulder

== ENCOUNTER → 2024-11-15 11:44 | Outpatient (BNVA) | payer MEDICARE, SELFPAY | PROVIDERS: PCP Internal Medicine; Visit Provider Internal Medicine | DX: E87.5 Hyperkalemia (principal); J01.00 Acute maxillary sinusitis, unspecified; E11.29 Type 2 diabetes mellitus with other diabetic kidney complication; R80.9 Proteinuria, unspecified; Z79.4 Long term (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; E11.42 Type 2 diabetes mellitus with diabetic polyneuropathy; E11.21 Type 2 diabetes mellitus with diabetic nephropathy; E78.5 Hyperlipidemia, unspecified; E11.3553 Type 2 diabetes mellitus with stable proliferative diabetic retinopathy, bilateral; I10 Essential (primary) hypertension; M19.011 Primary osteoarthritis, right shoulder; M19.012 Primary osteoarthritis, left shoulder | CPT/HCPCS: 96127; 99212 ==

== ENCOUNTER 2024-11-18 10:21 | Emergency (ER) | payer MEDICARE, SELFPAY ==
[2024-11-18 10:36] VITALS: BP 137/53; PULSE 85; RESP 18; TEMP 36.6; O2SAT 97; BMI 26.3
[2024-11-18 11:40] VITALS: BP 134/51; PULSE 97; RESP 22; TEMP 36.6; O2SAT 99
--- NOTE | 2024-11-18 11:55 | PC.NURSE ---
pt is alert and oriented, skin appropriate fo4 ethnicity, respiration even and unlabored, ls clear, but the voice is slightly muffled, eye lids and around the eyes swollen, pt reports last night eating cherries and strawberries and becoming itchy and eye lids swelling and throat itching/burning pt was using Benadryl which she reported helped out some. vs stable and sating well, ns on the monitor.
[2024-11-18] MEDS: methylPREDNISolone Sod Succ 125 MG/2 ML VIAL IVPUSH (12:00)
[2024-11-18] MEDS: diphenhydrAMINE HCL 50 MG/ML VIAL IVPUSH (12:01)
[2024-11-18] MEDS: Famotidine/PF 20 MG/2 ML VIAL IVPUSH (12:01)
--- NOTE | 2024-11-18 13:07 | ED.ALLEREA ---
HPI - Allergic Reaction General Chief complaint: Allergic Reaction Stated complaint: Itchiness in throat/ears, eye swelling Time Seen by Provider: 11/18/24 11:38 Source: patient Mode of arrival: ambulatory Limitations: no limitations History of Present Illness ED Provider: Lydia Rudd PA-C HPI narrative: 79 yo female presenting to the ER for evaluation of an allergic reaction. she reports last night after eating cherries she developed an itching in her throat, difficulty swallowing and swelling around her eyes. She also had a swollen lower lip. She did not have a ride to the ER at the time so she waited until today to come for evaluation. She reports overall her symptoms are improved but she has residual swelling around her eyes and puffiness. She reports yesterday they were so swollen she could not even open them. She reports the lip swelling has resolved but she feels her voice is muffled and it is still hard to swallow. she has not taken any medication for her symptoms. she denies chest pain, SOB, rash/hives, N/v/d or abdominal pain. MD complaint: allergic reaction and facial swelling Onset (ago): day(s) (1) Exposure: food Symptoms: itching, facial swelling, lip swelling and difficulty swallowing Severity: moderate Treatment prior to arrival: none Previous Allergic Reaction History: prior ED visit(s) Related Data Previous Rx's ?Medication ?Instructions ?Recorded pen needle, diabetic 32 gauge x #100 ea 12/18/21 (BD Jennifer 2nd Gen Pen Needle) aspirin 81 mg tablet,delayed 81 mg PO DAILY #90 tabs 08/16/24 release (Adult Low Dose Aspirin) cyanocobalamin (vitamin B-12) 100 100 mcg PO .qod 90 days #45 tabs 08/16/24 mcg tablet gabapentin 100 mg capsule 100 mg PO .qhs #90 caps 08/16/24 lisinopril 10 mg tablet 10 mg PO DAILY 90 days #90 tabs 08/16/24 omeprazole 20 mg capsule,delayed 20 mg PO DAILY #90 caps 08/16/24 release alcohol swabs (Alcohol Pads) 1 pad topical BID #200 ea 09/01/24 blood sugar diagnostic (FreeStyle #200 ea 09/01/24 Lite Strips) blood-glucose meter (FreeStyle #1 ea 09/01/24 Lite Meter kit) lancets 28 gauge (FreeStyle #200 ea 09/01/24 Lancets) blood sugar diagnostic (OneTouch #100 ea 09/09/24 Verio test strips) blood-glucose meter (OneTouch #1 ea 09/09/24 Verio Flex Meter) lancets 33 gauge (OneTouch Delica #100 ea 09/09/24 Plus Lancet) polyethylene glycol 3350 17 17 g PO DAILY #510 grams 10/04/24 gram/dose oral powder (Miralax) dulaglutide 0.75 mg/0.5 mL 0.75 mg (0.5 mL) subcut QWEEK 90 11/04/24 subcutaneous pen injector days #6.5 mL (Trulicity) amoxicillin 875 mg tablet 875 mg PO BID 7 days #14 tabs 11/15/24 fluticasone propionate 50 1 spray intranasal DAILY #16 grams 11/15/24 mcg/actuation nasal spray,suspension (Flonase Allergy Relief) metformin 500 mg tablet,extended 1,000 mg (2 x 500 mg) PO BID #360 11/15/24 release 24 hr tabs pioglitazone 30 mg tablet 30 mg PO DAILY 90 days #90 tabs 11/15/24 rosuvastatin 40 mg tablet 40 mg PO DAILY 90 days #90 tabs 11/15/24 cetirizine 10 mg capsule (Zyrtec) 10 mg PO DAILY #7 caps 11/18/24 Allergies Allergy/AdvReac Type Severity Reaction Status Date / Time Iodinated Contrast Media Allergy Intermediate DYSPNEA Unverified 10/04/24 10:58 [IV DYE, IODINE CONTAINING] apple Allergy Facial Verified 11/18/24 10:41 Swelling Review of Systems Review of Systems: Yes all other systems are reviewed and are negative [facility] Past Medical History Medical History Diabetic nephropathy associated with type 2 diabetes mellitus Diabetic polyneuropathy associated with type 2 diabetes mellitus Diabetes type 2, controlled 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 Father No problems noted. Social History Social History Household Members: Spouse Housing: Apartment Alcohol intake: never Patient Tobacco Use Status: Former Tobacco user Smoked in Last 30 Days: No e-Cigarette/Vaping Use: Never Used Use of substances other than those prescribed or required for medical reasons: No Advance Directives: No Advance Directives Information Provided: No Do you have a plan to hurt others: No Plan Current occupational status: unemployed Cognitive needs: No Hearing needs: Yes Vision needs: Yes Physical Exam ED Vital Signs: Vital Signs - 24 hr 11/18/24 10:36 11/18/24 11:40 11/18/24 14:18 Temperature 98 F 97.8 F 97.8 F Pulse Rate 85 97 97 Respiratory Rate 18 22 H 22 H Blood Pressure 137/53 L 134/51 L 134/51 L Pulse Oximetry 97 99 99 Oxygen Delivery Method Room Air Room Air Room Air BMI result Body Mass Index 26.3 Appearance: Alert. Oriented X3. No acute distress. Head/face: normocephalic, atraumatic. periorbial edema bilatearlly Eyes: Pupils equal, round and reactive to light. EOMI ENT: Pharynx normal. No tonsillar swelling or exudate. ariway patient. mild muffled voice. no lip or tongue swelling Neck: Normal inspection. Neck supple. no LAD, no swelling CVS: Normal heart rate and rhythm. Pulses normal. Respiratory: No respiratory distress. Breath sounds normal. no wheezing, no stridor Skin: Skin warm and dry. Normal skin color. Normal skin turgor. No rashes. Extremities: No lower extremity edema. No joint swelling. Neuro/psych: Oriented X 3.grossly normal, nonfocal, steady gait Normal speech and cognition. Medications Administered Discontinued Medications Generic Name Dose Route Start Last Admin Trade Name Freq PRN Reason Stop Dose Admin Diphenhydramine HCl 50 mg 11/18/24 11:39 11/18/24 12:01 Diphenhydramine Hcl 50 Mg/Ml Vial IVPUSH 11/18/24 11:40 50 mg ONCE ONE Administration Famotidine 20 mg 11/18/24 11:39 11/18/24 12:01 Famotidine/Pf 20 Mg/2 Ml Vial IVPUSH 11/18/24 11:40 20 mg ONCE ONE Administration Methylprednisolone Sodium Succinate 125 mg 11/18/24 11:39 11/18/24 12:00 Methylprednisolone Sod Succ 125 Mg/2 Ml Vial IVPUSH 11/18/24 11:40 125 mg ONCE ONE Administration Medical Decision Making Medical Decision Making MDM Narrative: 79-year-old female with a history of allergies to apples presents to the ER for evaluation of allergic reaction, she thinks to cherries that she ate last night. She has had periorbital swelling, difficulty swallowing, lip swelling and muffled voice. She has not taken any medication. On arrival she has moderate periorbital edema, mild muffled voice. Her airway seems patent, her lip swelling has resolved. Overall her symptoms thankfully seem to be slowly improving. IV was established and she was given IV Solu-Medrol, IV Benadryl and Pepcid. Plan to monitor in the ER for improvement and resolution patient monitored in the ER for couple of hours. Her symptoms improved. Voice is improved. Throat sensation improved. At this time she is stable for discharge home. Will continue antihistamine. Advised to follow up with her primary care doctor and avoid raw fruit. She should get allergy testing. Stable for discharge Differential Diagnosis Differential Diagnoses: The differential diagnosis associated with the presentation includes anaphylaxis, angioedema, allergic reaction, seasonal allergies Admission/Observation Consideration of admission/observation: Escalation of care including admission/observation considered External Record Review External record reviewed: Prior outpatient labs Prescription Management I considered prescription management with: Other ( antihistamine, steroid) Chronic Conditions Patient?s care impacted by: Diabetes and Hypertension Discharge Plan Discharge Clinical Impression: Allergic reaction Qualifiers: Encounter type: initial encounter Qualified Code(s): T78.40XA - Allergy, unspecified, initial encounter Patient Disposition: Home, Self-Care Instructions: General Allergic Reaction (ED) Additional Instructions: recommend continuing an antihistamine for the next few days until all of your symptoms are resolved. prescription has been sent to your pharmacy If you develop new or worsening symptoms call 911 or come back to the ER for further evaluation. Prescriptions: New Zyrtec 10 mg capsule 10 mg PO DAILY Qty: 7 0RF No Action (DME) pen needle, diabetic [BD Jennifer 2nd Gen Pen Needle] 32 gauge x 5/32 needle See Rx Instructions .ROUTE .MEDSUPPLY Qty: 100 11RF Rx Instructions: Once a day (DME) blood-glucose meter [FreeStyle Lite Meter] Kit See Rx Instructions .Route Qty: 1 0RF Rx Instructions: check blood sugar two times daily. (DME) FreeStyle Lite Strips Strip See Rx Instructions .Route Qty: 200 11RF Rx Instructions: Check blood sugar two times daily as directed (DME) lancets [FreeStyle Lancets] 28 gauge misc See Rx Instructions .Route Qty: 200 11RF Rx Instructions: Check blood sugar two times daily as directed alcohol swabs [Alcohol Pads] Pads, Medicated 1 pad topical BID Qty: 200 11RF (DME) blood-glucose meter [OneTouch Verio Flex meter] Misc See Rx Instructions .Route Qty: 1 0RF Rx Instructions: Check blood sugar twice daily (DME) lancets [OneTouch Delica Plus Lancet] 33 gauge misc See Rx Instructions .Route Qty: 100 11RF Rx Instructions: Check blood sugar twice daily. (DME) OneTouch Verio test strips Strip See Rx Instructions .Route Qty: 100 11RF Rx Instructions: Check blood sugar twice daily Trulicity 0.75 mg/0.5 mL pen injector 0.75 mg subcut QWEEK 90 Days Qty: 6.5 1RF aspirin [Adult Low Dose Aspirin] 81 mg tablet,delayed release (DR/EC) 81 mg PO DAILY Qty: 90 3RF cyanocobalamin (vitamin B-12) 100 mcg tablet 100 mcg PO .qod 90 Days Qty: 45 3RF gabapentin 100 mg capsule 100 mg PO .qhs Qty: 90 1RF lisinopril 10 mg tablet 10 mg PO DAILY 90 Days Qty: 90 3RF omeprazole 20 mg capsule,delayed release(DR/EC) 20 mg PO DAILY Qty: 90 1RF fluticasone propionate [Flonase Allergy Relief] 50 mcg/actuation spray,suspension 1 spray intranasal DAILY Qty: 16 0RF Rx Instructions: administer into each nostril amoxicillin 875 mg tablet 875 mg PO BID 7 Days Qty: 14 0RF metformin 500 mg tablet extended release 24 hr 1,000 mg PO BID Qty: 360 2RF pioglitazone 30 mg tablet 30 mg PO DAILY 90 Days Qty: 90 2RF rosuvastatin 40 mg tablet 40 mg PO DAILY 90 Days Qty: 90 1RF polyethylene glycol 3350 [Miralax] 17 gram/dose powder 17 g PO DAILY Qty: 510 2RF Interventions: ED Discharge Assessment Last Done: 11/18/24 14:18 Discharge Date/Time: 11/18/24 14:19 Print Language: Jamaican
--- NOTE | 2024-11-18 13:51 | PC.NURSE ---
the swelling around the eyes is starting to look better
[2024-11-18 14:18] VITALS: BP 134/51; PULSE 97; RESP 22; TEMP 36.6; O2SAT 99
== END 2024-11-18 14:19 | disposition home or self-care (01) ==
PROVIDERS: Emergency Provider Emergency Medicine; PCP Internal Medicine
DX: R13.10 Dysphagia, unspecified (principal); T78.1XXA Other adverse food reactions, not elsewhere classified, initial encounter; E11.21 Type 2 diabetes mellitus with diabetic nephropathy; X58.XXXA Exposure to other specified factors, initial encounter; Z87.891 Personal history of nicotine dependence; Z79.899 Other long term (current) drug therapy; Z79.84 Long term (current) use of oral hypoglycemic drugs
CPT/HCPCS: 96374; 96375; 99284; J1200; J2919

== ENCOUNTER 2024-12-12 10:26 | Outpatient (AMB) | payer MEDICARE, MEDICAID, SELFPAY ==
[2024-12-12 10:32] VITALS: BP 118/58; PULSE 82; O2SAT 100; BMI 25.2
--- NOTE | 2024-12-12 10:32 | A.OFFVIS_ITS ---
Vital Signs 12/12/24 10:32 Height 5 ft 1 in Weight 133 lb 9.602 oz BMI 25.2 BP 118/58 L Blood Pressure Location Rt brachial Position Sitting Pulse 82 Pulse Source Pulse Oximeter Pulse Oximetry (%) 100 Oxygen Delivery Method Room Air Intake Visit Reasons: 2 mo discuss colo Intake Note: ESTABLISHED PATIENT for Discuss colo. Constipation mgmt. Chief Complaint; Pt denies any GI concerns at this time. Pt reports she is not taking miralax anymore but does not complain of any difficulties with BM. Donor Relations Coordinator Required: Yes Donor Relations Coordinator Services: Donor Relations Coordinator Present Donor Relations Coordinator Name: Latonia [id number] Information Interpreted: clinical only Accompanied by: Son Allergies strawberry Allergy (Severe, Verified 12/12/24 10:55) Anaphylaxis Iodinated Contrast Media [IV DYE, IODINE CONTAINING] Allergy (Intermediate, Unverified 12/12/24 10:55) DYSPNEA apple Allergy (Verified 12/12/24 10:55) Facial Swelling HPI HPI 2 mo discuss colo: Details: LAST VISIT Colon cancer screening Constipation Plan Patient denies any cardiac or respiratory symptoms.? As mentioned above in HPI patient had colonoscopy in 2014. No polyps, diverticulosis and hemorrhoids found. Patient denies any melena, hematochezia, unintentional weight loss or ribbon like stools. Patient is on Trulicity and she is eating small amounts. Patient is not eating any meat. Soups are her favored meals. Patient's son is concerned about that patient is not eating enough. Both patient and son educated about Trulicity can affect gastric motility. Patient reports to be constipated. Took Dulcolax before and was not helpful. Patient will start MiraLax. Will return in 2 months for re-evaluation. Message sent to surgical schedulers to book procedure for patient.. Both patient and her son are agreeable to plan of care and verbalizes understanding of instructions. They were given the opportunity to ask questions and all questions answered. ? Thank you for allowing me to participate in his care Medications New polyethylene glycol 3350 (Miralax) 17 grams PO DAILY 510 grams 2RF TODAY'S VISIT Patient is here today for follow-up and to discuss going for colonoscopy. Patient reports that she still is constipated specially when for a few days after she takes Trulicity. Patient is not taking MiraLax as she thought that this was her prep. Clarified with patient about previously taking Dulcolax. Patient does not believe that she took it in the past. Patient took stool softeners that were not helpful. Patient denies melena, hematochezia. In issues with anesthesia in the past were patient woke up in the middle of the procedure. Patient was told that she might require more anesthesia in next time. Patient is on low-dose aspirin. Denies any cardiac or respiratory symptoms. Acid reflux suppressed with omeprazole. Patient denies any other GI concerning symptoms. 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 Father No problems noted. Social History Household Members: Spouse Housing: Apartment Alcohol intake: never Patient Tobacco Use Status: Former Tobacco user e-Cigarette/Vaping Use: Never Used Current occupational status: unemployed Cognitive needs: No Hearing needs: Yes Vision needs: Yes Review of Systems Const Denies weight gain and Denies weight loss ENT Reports no additional complaints, Denies dysphagia and Denies odynophagia Card Reports no additional complaints Resp Reports no additional complaints GI Denies abdominal pain, Denies belching, Denies melena, Reports bloating, Denies change in bowel habits, Reports constipation (occasional), Denies dysphagia, Denies excessive flatus, Denies dyspepsia, Denies heartburn, Denies diarrhea, Denies loose stools, Denies nausea, Denies odynophagia and Denies vomiting Reports no additional complaints Musc Reports no additional complaints Neuro Reports no additional complaints Psych Reports no additional complaints Endo Reports no additional complaints Physical Exam Const General: healthy appearing, no acute distress and well developed Nutritional Appearance: well nourished Orientation/consciousness: patient oriented x3 Resp Effort & Inspection: normal respiratory effort, able to speak in complete sentences, no tracheal deviation and symmetric chest movement Auscultation: clear to auscultation bilaterally Cardio Rate: regular rate GI Inspection: Yes normal to inspection and No distended Palpation (GI): Soft to palpation, not firm, nontender and No hepatosplenomegaly present Auscultation: normal bowel sounds General: Yes no CVA tenderness Back/Spine/Pelvis Back: no CVA tenderness Skin General skin exam: elasticity normal, turgor normal and dry skin Neuro General: patient oriented x3 Psych Appearance: grossly normal Mental Status: mental status grossly normal Assessment & Plan Assessment & Plan (1) Colon cancer screening: Code(s): Z12.11 - Encounter for screening for malignant neoplasm of colon Category: Medical (2) Constipation: Code(s): K59.00 - Constipation, unspecified Qualifiers: Constipation type: slow transit constipation Qualified Code(s): K59.01 - Slow transit constipation (3) GERD (gastroesophageal reflux disease): Code(s): K21.9 - Gastro-esophageal reflux disease without esophagitis Category: Medical Qualifiers: Esophagitis presence: esophagitis presence not specified Qualified Code(s): K21.9 - Gastro-esophageal reflux disease without esophagitis Plan Patient reports that during her last colonoscopy that was done in [place] she woke up in the middle of it. Patient might require more anesthesia. Patient will start 50 Dulcolax daily to help her move her bowels. Patient is on low- dose aspirin. Denies any cardiac or respiratory symptoms. Patient is on Trulicity. With expect before during and after procedure discussed with patient. Stressed importance of good bowel prep as well as clear liquid diet take before procedure. Patient will follow-up with us after the procedure, sooner on as needed basis. Discussed with patient avoiding dietary triggers and late night snacking. Staying upright for minimal 3 hours after meals discussed with patient. Patient is agreeable to current plan of care and verbalizes understanding of instructions. She was given the opportunity to ask questions and all questions answered. Thank you for allowing me to participate in her care Medications: New polyethylene glycol 3350 (Miralax) As directed by gastroenterology department at [facility] 238 grams PO ONCE 238 grams 0RF Z12.11 - Encounter for screening for malignant neoplasm of colon bisacodyl (Dulcolax (bisacodyl)) 10 mg (2 x 5 mg) PO BEDTIME 180 tabs 4RF bisacodyl (Dulcolax (bisacodyl)) 10 mg (2 x 5 mg) PO BEDTIME 180 tabs 4RF polyethylene glycol 3350 (Miralax) As directed by gastroenterology department at [facility] 238 grams PO ONCE 238 grams 0RF Z12.11 - Encounter for screening for malignant neoplasm of colon Coding Level of Care Code Est Pt Level 3 (91978) Diagnoses Colon cancer screening Z12.11 Slow transit constipation K59.01 Constipation type: slow transit constipation Gastroesophageal reflux disease, unspecified whether esophagitis present K21.9 Esophagitis presence: esophagitis presence not specified Time Spent (min) 30 Comment 20 minutes spent with patient and additional 10 minutes spent reviewing her records
--- OUTSIDE RECORDS SUMMARY | 2024-12-12 12:06 | XMS_ITS | Clinical Summary ---
Author Organization [address] Address [address] [place] [phone] Phone Care Team Providers Care Mat Roller Name Role Phone Harshad Castle MD Primary [...] Date Tinnitus aurium, 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 [place]DR [place]nonproliferative diabe tic retinopathy) [place] [facility] [place] 04/21/2017 Type 2 diabetes mellitus wit h eye manifestations [place] [facility] 04/21/2017 Overview (06/01/2024): Sees [facility]. Donna ritter at [facility] Diabetic neuropathy [place] [place] [facility] 0 04/21/2017 BPPV (benign paroxysmal positional vertigo) 10/01 Obesity (BMI 30.0-34.9) 07/08/2016 Diverticulosis 06/18/2015 GERD (gastroesophageal reflux disease) 5 HTN (hypertension) 06/18/2015 Hyperlipidemia 06/18/2015 Osteoarthritis, knee 06/18/2015 Overview (06/01/2024): Bilateral Positive PPD 06/18/2015 Tubular adenoma of colon 06/18/2015 Type 2 diabetes mellitus wit h cataract [place] [place] [facility] 06/18/2015 Type 2 diabetes mellitus wit h neurological manifestations, controlled [place] [place] [facility]) 06/18/2015 Overview (06/01/2024): Sees Dr. Donna ritter at [facility] Encounters Date Type Department Care Team Description 11/14/2024 10:30 AM EDT Office Visit Orthopedic Surgery - [address] [phone] Esteban Donato, DPDanny Controlled type 2 diabetes with neuropathy ([facility] V24, [facility] V28) (Primary Dx); Arthritis of both feet; Pain in toes of both feet; Dermatophytosis, nail from Last [...] Type 2 diabetes mellitus wit h cataract [place] [facility] 06/18/2015 DX:Type 2 diabetes mellitus with cataract ([facility]) BPPV (benign paroxysmal posi tional vertigo) 10/14/2016 DX:BPPV (benign paroxysmal p ositional vertigo) Type 2 diabetes mellitus wit h neurological manifestations, controlled [place] [facility] [place] 06/18/2015 DX:Type 2 diabet es mellitus with neurological manifestations, controlled ([facility]) Type 2 diabetes mellitus wit h eye manifestations ([facility] [facility] [place] 04/21/2017 DX:Type 2 diabetes mellitus with eye manifestations ([facility]) Diabetic retinopathy ([facility] [facility] [place] 04/21/2017 DX:Diabetic retinopathy ([facility] ) Diabetic neuropathy [place] [facility] [place] 04/21/2017 DX:Diabetic neuropathy ([facility]) Tinnitus aurium, [...] AM EDT Office Visit Orthopedic Surgery - [place] [address] [facility] [address] [place] [phone] Esteban Donato, CAROLYN [address] [facility] [address] [place] [address] Health Maintenance Due Date Last Done Comments Diabetes: Annual Retina Eye Exam 1957 DTaP,Tdap,and Td Vaccines (1 - Tdap) 1966 Zoster Vaccines (1 of 2) 1997 Depression Screening 08/09/2022 Falls Risk Assessment 08/09/2022 Social Influencers of Health Screening 08/09/2022 RSV Immunization Adult Patients (1 - 1-dose 75+ series) 2022 Diabetes: [...] age to complete this topic Meningococcal B Vaccine Aged Out No l onger eligible based on patient's age to complete [...] Ratio (01/04/2024) Urine Albumin Creatinine Ratio abstracted us Historical Provider HEALTH MAINTENANCE Final Result * (ABNORMAL) Hemoglobin A1c (01/04/2024) Hemoglobin A1C 7.0(A) <=6.5 % Blood Venous blood specimen / Unknown us Historical Provider LAB BLOOD ORDERABLES Kassidy l Result * Lipid panel (01/04/2024) LDL/HDL Ratio 2 0 - 4 Triglycerides 103 0 - 150 mg/dL Cholesterol 144 0 - 200 mg/dL HDL 88 >=40 mg/dL LDL Cholesterol 36 0 - 100 mg/dL Blood Venous blood specimen / Unknown us Historical Provider MD LAB BLOOD ORDERABLES Kassidy l Result * [...] (World Health Organization Fracture Risk Assessment) [facility] Department of Internal Medicine recommends using [...] (World Health Organization Fracture Risk Assessment) [facility] Department of Internal Medicine recommendsusing National [...] Most Recently Relevant to Health Maintenance Insurance [facility] [place]ICAID - [place] Member Subscriber Plan / Payer (Ef fective 2024-Present) Name:Jinny Hoyos Relation to Subscriber:Self Name:Jinny Hoyos Payer ID:[id number] Group ID:Not on file Type:Not on file Address: [facility] [employer] ATTN:[employer] [address] [place] [address] Care Teams Mat Roller Relationship Specialty Start Date End Date Harshad Castle MD [address] [place] [phone] PCP - General Internal Medicine 07/08/24
--- OUTSIDE RECORDS SUMMARY | 2024-12-12 12:06 | XMS_ITS ---
Author Name [place] CUSTOMER SALES SERVICE MANAGER,DRYERMAN/WOMAN,FN P,HEMOTHERAPIST, Renetta Address [address] [place] [address] Phone [phone] Organization [facility] Care Team Providers Care Transportation Aid Name Role Phone Renetta Slade Unavailable [phone] Dpt., [facility] Unavailable [phone] Unavailable Unavailable Unavailable Orellana, Mari Unavailable Unavailable JOSH DAILEY Unavailable [phone] Reason for Referral Not Available Allergies, adverse reactions, alerts Allergen Type Reaction Severity Status Onset Date Iodinated Contrast Media Allergy to substance (disorder) Unknown Active N/A 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 Active N/A Peña Allergy to substance (disorder) anaphylaxis Unknown Active N/A 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 N/A History of medication use Medication Class Instructions Start Date End Date Trulicity 0.75 mg/0.5ML Solution Pen-injector INJECT ONE PEN (=0.75MG) SUBCUTANEOUSLY ONCE A WEEK DIRECTED 2021-10-01 No Data Available Loratadine 10 mg Tab TAKE 1 TABLET BY MO [facility] EVERY MORNING PRN 2022-01-02 No Data Available OneTouch Delica Plus [id number] Miscellaneous TEST BLOOD SUGAR 4 TIMES A [...] mg Tab TAKE 1 TABLET BY GINO THREE TIMES DAILY NEEDED FOR VERTIGO 2022-02-11 [...] MOUTH EVERY MORNING 2024-06-27 No Data Available LATTOuch PanelClawio Flex System w/Device Kit TEST BLOOD SUGAR TWICE DAILY 2024-09-09 No Data Available FT ClearLax 17 GM/SCOOP Powder Mix 17g (1 capful) in 8 ounces of water and take by mouth every day 2024-10-04 No Data Available Meclizine 12.5 mg Tab 1 tablet orally ev fabio 6 hours as needed for vertigo 2024-11-08 No Data Available Amoxicillin 875 mg Tab TAKE 1 TABLET BY MOUTH TWICE DAILY UNTIL FINISHED 2024-11-15 No Data Available Fluticasone Propionate 50 MCG/ACT Suspension INSTILL 1 SPRAY IN EACH NOSTRIL ONCE DAILY 2024-11-15 No Data Available Benadryl Allergy 25 mg Tab 1 tablet oral ly daily PRN allergy 2024-11-22 No Data Available Problem List Problem Status Onset Date Resolved Date 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, bilateral Active 2024-01-30 9 N/A Type 2 diabetes mellitus with diabetic neuropathy Acti ve 2024-10-31 N/A Vitamin deficiency Active 2022-06-25 N/A GERD (gastroesophageal reflux disease) Active 20 20 N/A Type 2 diabetes mellitus with hyperlipidemia Active 2022-06-25 N/A Right arm pain Active 2024-03-15 N/A Acute sinus infection Resolved 2024-10-07 3-03 Allergies Active 2024-02-17 N/A Dizziness Active 2024-02-17 N/A Encounter for other specifie d aftercare, Allergic reaction Active 2024-11-22 N/A Tearfulness Active 2024-11-22 N/A Other problems related to in dical facilities and other health care Active 2024-10-31 N/A Encounters Encounters Type Facility Date of Service Diagnosis/Co mplaint Medication List Documented (1159F) [facility] [place] Medication List Documented (1159F) [facility] [place] Medication List Documented (1159F[place] [facility] [place] Medication List Documented (1159F[place] [facility] [place] Medication List Documented (1159F[place] [facility] [place] Medication List Documented (1159F) [facility] [place] Type 2 diabetes mellitus wit h other specified complicationHyperlipidemia, unspecifiedOther specified diabetes mellitus with diabetic polyneuropathyEssential (primary) hypertensionDeficiency of other specified B group vitaminsVitamin D deficiency, unspecified No Data Available [facility] ([place]2022 Noninfective gastroenteritis and colitis, unspecified No Data Available [facility] [place]2022 Noninfective gastroenteritis and colitis, unspecified Estab. patient 30-39min; chronic exacerbation, 2 stable chronic or 1 acute illness add add modifier 95 for video, (do not use for phone, instead use 23783-62) [facility] [place] Type 2 diabetes mellitus wit h [...] (do not use for phone, instead use 70716-21) [facility] [place] Estab. patient 30-39min; chronic exacerbation, 2 stable chronic or 1 acute illness add add modifier 95 for video, (do not use for phone, instead use 44250-71) [facility] [place] Estab. patient 30-39min; chronic exacerbation, 2 stable chronic or 1 acute illness add add modifier 95 for video, (do not use for phone, instead use 16134-32) [facility] [place] Estab. patient 30-39min; chronic exacerbation, 2 stable chronic or 1 acute illness add add modifier 95 for video, (do not use for phone, instead use 17663-61) [facility] [place] Estab. patient 30-39min; chronic exacerbation, 2 stable chronic or 1 acute illness add add modifier 95 for video, (do not use for phone, instead use 84204-66) [facility] [place] Estab. patient 30-39min; chronic exacerbation, 2 stable chronic or 1 acute illness add add modifier 95 for video, (do not use for phone, instead use 17382-54) [facility] [place] Estab. patient 30-39min; chronic exacerbation, 2 stable chronic or 1 acute illness add add modifier 95 for video, (do not use for phone, instead use 85953-57) [facility] [place] Estab. patient 30-39min; chronic exacerbation, 2 stable chronic or 1 acute illness add add modifier 95 for video, (do not use for phone, instead use 23780-90) [facility] [place] Estab. patient 30-39min; chronic exacerbation, 2 stable chronic or 1 acute illness add add modifier 95 for video, (do not use for phone, instead use 15180-78) [facility] [place] Estab. patient 30-39min; chronic exacerbation, 2 stable chronic or 1 acute illness add add modifier 95 for video, (do not use for phone, instead use 15682-03) [facility] [place] Type 2 diabetes mellitus wit [...] (do not use for phone, instead use 98062-37) [facility] [place] Estab. patient 30-39min; chronic exacerbation, 2 stable chronic or 1 acute illness add add modifier 95 for video, (do not use for phone, instead use 68069-79) [facility] [place] Estab. patient 30-39min; chronic exacerbation, 2 stable chronic or 1 acute illness add add modifier 95 for video, (do not use for phone, instead use 32978-91) [facility] [place] Estab. patient 30-39min; chronic exacerbation, 2 stable chronic or 1 acute illness add add modifier 95 for video, (do not use for phone, instead use 85035-96) [facility] No Data Available [facility] [place] Pain In Right ArmOther probl ems related to medical facilities and other health care Unlisted special service; to be used for medical record reviews and reporting CPTII codes (1111F, etc) [facility] [place] Other specified counseling Unlisted special service; to be used for medical record reviews and reporting CPTII codes (1111F, etc) [facility] [place] Unlisted special service; to be used for medical record reviews and reporting CPTII codes (1111F, etc) [facility] [place] Estab. patient 10-29min; 1 minor problem; add add modifier 95 for video, modifier 93 for phone [facility] [place]2024 Acute sinusitis, unspecified Estab. patient 10-29min; 1 minor problem; add add modifier 95 for video, modifier 93 for phone [facility] [place] Estab. patient 10-29min; 1 minor problem; add add modifier 95 for video, modifier 93 for phone [facility] [place] Estab. patient 10-29min; 1 minor problem; add add modifier 95 for video, modifier 93 for phone [facility] [place] Estab. patient 20-29min; 1 stable chronic or 2 minor; add add modifier 95 for video, modifier 93 for phone [facility] [place]20[place] Type 2 diabetes mellitus wit h other specified complicationHyperlipidemia, unspecifiedType 2 diabetes mellitus with diabetic neuropathy, unspecifiedVitamin deficiency, unspecifiedType 2 diabetes mellitus with proliferative diabetic retinopathy with macular edema, bilateralDizziness and giddinessOther problems related to medical facilities and other health careAllergy, unspecified, initial encounterGastro-esophageal reflux disease without esophagitisPain In Right Arm Estab. patient 20-29min; 1 stable chronic or 2 minor; add add modifier 95 for video, modifier 93 for phone [facility] [place] Estab. patient 20-29min; 1 stable chronic or 2 minor; add add modifier 95 for video, modifier 93 for phone [facility] [place] Estab. patient 20-29min; 1 stable chronic or 2 minor; add add modifier 95 for video, modifier 93 for phone [facility] [place] Estab. patient 20-29min; 1 stable chronic or 2 minor; add add modifier 95 for video, modifier 93 for phone [facility] [place] Estab. patient 20-29min; 1 stable chronic or 2 minor; add add modifier 95 for video, modifier 93 for phone [facility] [place] Estab. patient 20-29min; 1 stable chronic or 2 minor; add add modifier 95 for video, modifier 93 for phone [facility] [place] Estab. patient 20-29min; 1 stable chronic or 2 minor; add add modifier 95 for video, modifier 93 for phone [facility] [place] Estab. patient 10-29min; 1 minor problem; add add modifier 95 for video, modifier 93 for phone [facility] [place]08/2024 Dizziness and giddiness Estab. patient 10-29min; 1 minor problem; add add modifier 95 for video, modifier 93 for phone [facility] [place]2024 Encounter for other specifie d aftercareAllergy, unspecified, initial encounterOther symptoms and signs involving emotional stateOther problems related to medical facilities and other health care Estab. patient 10-29min; 1 minor problem; add add modifier 95 for video, modifier 93 for phone [facility] [place] Estab. patient 10-29min; 1 minor problem; add add modifier 95 for video, modifier 93 for phone [facility] [place] Estab. patient 10-29min; 1 minor problem; add add modifier 95 for video, modifier 93 for phone [facility] [place] Estab. patient 10-29min; 1 minor problem; add add modifier 95 for video, modifier 93 for phone [facility] [place] 11/[place]/2024 Vital Signs Date of Collection Vitals 2022-06-25 [...] - 121.0 mm[Hg]Pain Scale - 8.0 {score} 2024-11-22 06:43:50 BP Diastolic - 58.0 mm[Hg]BP Systolic - 121.0 mm[Hg] Social History Social History Social History Observation Description Effec tive Time Current Smoking Status Former smoker 2024-11-29 4 Sex Female Gender identity Woman History of [...] (do not use for phone, instead use [id number]) 16332 2022-06-25 No Data Available No Data Availa ble No Data Available [id number] 2022-10-29 No Data Available No Data Available No Data Available [id number] 2022-10-31 No Data Available No Data Available Estab. patient 30-39min; chronic exacerbation, 2 stable chronic or 1 acute illness add add modifier 95 for video, (do not use for phone, instead use 10338-02) 37638 2023-04-21 No Data Available No Data Availa [...] (do not use for phone, instead use 76836-98) 68925 2024-02-17 No Data Available No Data Availa [...] No Data Avail able No Data Available [id number] 2024-03-15 No Data Available No Data Available Unlisted special service; to be used for medical record reviews and reporting CPTII codes (1111F, etc) 95753 2024-06-22 No Data Available No Data Availa ble SBP < 130 (3074F) 3074F 2024-06-22 No Data Available No Data Available DBP <80 (3078F) 3078F 2024-06-22 No Data Available No Data Available Estab. patient 10-29min; 1 minor problem; add add modifier 95 for video, modifier 93 for phone [id number] 2024-10-07 No Data Available No Data Availa [...] 95 for video, modifier 93 for phone 08665 2024-10-31 No Data Available No Data Availa [...] No Data Available No Data Nemo ilable Most recent A1c (HbA1c) or GMI level 7-7.9% (3051F) 3051F 2024-10-31 No Data Available No Data Availa ble Estab. patient 10-29min; 1 minor problem; add add modifier 95 for video, modifier 93 for phone 16342 2024-11-08 No Data Available No Data Availa ble Estab. patient 10-29min; 1 minor problem; add add modifier 95 for video, modifier 93 for phone 53323 2024-11-22 No Data Available No Data Availa ble SBP < 130 (3074F) 3074F 2024-11-22 No Data Available No Data Available DBP <80 (3078F) 3078F 2024-11-22 No Data Available No Data Available Advance care planning discussed and documented ? advance care plan or surrogate decision-maker was documented in the medical record. (1123F) 1123F 2024-11-22 No Data Available No Data Availa ble Advance Care Directive Advance care planning discussion documented in the medical record (1158F) 1158F 2024-11-22 No Data Available No Data Availa ble [...] plan for a cute symptoms: See belowDizziness 2024-11-22 06:43:50 Encounter for other specified aftercare, Allergic reactionTearfulnessOther problems related to medical facilities and other health care Plan of Care Date of Service Plans [...] 30 mg, Trulicity 0.75mg weeklyfollows with her data processing operator Dr. Craig yearlytakes her blood sugars daily in the Am and typically range in 100-150's was seeing pathology laboratory director however they have left and will be [...] nothing spicy or acidic. Will send in [place]. F/U scheduled for 10/31/22 with [facility] [...] Documented (1125F)Continue to see PCP. Follow-up with [facility] as needed for any acute or disease education needs that may arise.managed on rosuvastatin 40 mg, metformin 1000 mg BID, Lantus 7 units, pioglitazone 30 mg, Trulicity 0.75mg weeklyfollows with her data processing operator Dr. Craig yearlytakes her blood sugars daily in the Am and typically range in 100-150's was seeing pathology laboratory director however they have left and will be establishing her diabetic care with her PCP [facility] Update 04/21/23:Follows up with PCP every 3 months. Last visit 03/17/23.Follows up with Nursing Care Attendant, next appt 05/08/23. Last A1C reported by [...] follow up as instructed.Monitor Glucose regularly.Contact CB 23/03 as needed.managed on rosuvastatin 40 mg, metformin [...] as prescribed, follow up as instructed.Contact CB / as needed.managed on lisinopril 10 mgcontinue to [...] low Sodium diet. Monitor Glucose regularly.Contact CB / as needed.managed on b12 supplements daily monitor [...] documented (1126F)Continue to see PCP. Follow-up with [facility] as [...] low abd pain. [facility] Follow-up with Yenny as [...] follow up with PCP for further evaluation. 2024-11-22 06:43:50 Estab. patient 10-29 min; 1 minor problem; add add modifier 95 for video, modifier 93 for phoneSBP < 130 (3074F)DBP <80 (3078F)Advance care planning discussed and documented ? advance care plan or surrogate decision-maker was documented in the medical record. (1123F)Advance Care Directive Advance care planning discussion documented in the medical record (1158F)Continue to see PCP. Follow-up with [facility] as needed for any acute or disease education needs that may arise 23/03.11/22/24:I spoke with member who reports she presented to ER at [facility] on the morning of 11/18/24 after she started experiencing facial swelling, throat irritation, and difficulty swallowing after eating cherries and apricots the night prior. She states the symptoms started that same night, but she did not think much of them. However, went to ER the next morning when symptoms did not improve. She states she had a similar reaction in the past when she ate an apple. She states she was given antihistamine via IV and discharged. -Advised to avoid tree fruits until she sees an hospital clinic assistant-Advised to set up appt with PCP to obtain referral to hospital clinic assistant-Rx for benadryl given to member and advised to carry around with her at all time-Advised that if she experiencing another reaction to a fruit like this, she must not wait- take the benadryl and go to the ER immediately-[facility]:-member became suddenly tearful towards end of visit. She did not want to disclose why nor want me to connect her with mental health support despite repeated encouragement. She denied thought of self-harm.-I reminded member that we are available to her 23/03 and encouraged her to call us at any moment if needed tp which she verbalized understanding. Psych contingency plan sent to member via ObsEvaFALL CONTINGENCY PLANMember to call for the following symptoms: Blood sugar <80??/ BP <110/70??/ Fall??/ Vertigo/ WeaknessPlanned intervention: Encourage extra fluid intake / Assess for change in mental status and provide reassurance if none (patient's Baseline is 121/58) Review importance of sitting for two to three minutes prior to standing after laying downPSYCH CONTINGENCY PLANLast updated: 11/22/2024Member to call for the following symptoms: Anxiety/ Not leaving bed/home or more withdrawn??/ Restlessness/ Suicidal thoughtsPlanned intervention: Contact mental health professional:/ Transfer member to [address] [place] [address]/ Hydroxyzine (Vistaril) 25mg PO q6h PRN anxiety/ Remind member of breathing exercises/ Encourage member to journal feelings/ Limit extra stimulation Goals Date Goal 2022-06-25 Remember to check [...] your diabetic control and seeing your eye annually. 2023-04-21 Remember to keep all appointments with your PCP and specialists. Call CB / if you have questions or concerns. Discussed how to contact [facility] via phone or tablet. 24/ phone number provided. 2024-10-31 At least 50% of time spent counseling pt, discussing diagnosis, treatment plan, compliance, and coordinating followup care. Continue taking medications as directed and keep all follow up appointments with established PCP and Specialist 2024-11-08 Continue taking medi cations as directed and keep all follow up appointments with established PCP and Specialist. 2024-11-22 Continue taking medi cations as directed and keep all follow up appointments with established PCP and Specialist. 2024-11-22 At least 50% of time spent counseling patient, discussing diagnosis, treatment plan, complicance, and coordinating follow up care. Health Concerns Date Concern 2024-11-22 Visit completed via audio by telephone. Patient/Guardian agreed to visit via telehealth.Time spent in visit: 2024-11-22 Most recent hospital stay(s) or ER visit(s) and precipitating factors: Member presented to ER at [facility] on 11/18/24 after having experiencing allergic reaction from eating cherries, apricots 2024-11-22 HEDIS review: review edACP completed on 5BP: 121/58 (recorded 10/05/24) 2024-11-22 I spoke with who reports she presented to ER at [facility] on the morning of 11/18/24 after she started experiencing facial swelling, throat irritation, and difficulty swallowing after eating cherries and apricots the night prior. She states the symptoms started that same night, but she did not think much of them. However, went to ER the next morning when symptoms did not improve. She states she had a similar reaction in the past when she ate an apple. She states she was given antihistamine via IV and discharged.She states she has asked her PCP to do allergy testing, but PCP does not want to do it per member.Member does not see an hospital clinic assistant. She does not carry oral antihistamine with her or an epi-pen. 2024-11-22 At the end of visit, then started crying suddenly. I asked her what was wrong and how I could help her, but she repeatedly said nothing was wrong. 2024-11-22 At the end of visit, then started crying suddenly. I asked her what was wrong and how I could help her, but she repeatedly said nothing was wrong. I asked if I can connect her to a therapist and she stated no she was fine. I asked if she had a therapist of her own to which she said yes. She states she spoke to her therapist on 11/01/2024. However, she states she does not know the name or contact # of the therapist. She states the therapist called her. I again asked if I can connect her to someone she can talk to as I don't want her to leave her crying, but she continued to decline any further help. I asked if she had thoughts of self harm to which she stated no and that she is a [employer].I reminded member that we are available to her 23/03 and encouraged her to call us at any moment if needed tp which she verbalized understanding. Psych contingency plan sent to member via [employer].
== END 2024-12-12 11:28 | disposition home or self-care (01) ==
LOC: HO.HGI 10:31
PROVIDERS: PCP Internal Medicine; Visit Provider Nurse Practitioner Family
DX: K59.01 Slow transit constipation (principal); K21.9 Gastro-esophageal reflux disease without esophagitis; Z12.11 Encounter for screening for malignant neoplasm of colon
CPT/HCPCS: 99213

== ENCOUNTER → 2024-12-12 10:26 | Outpatient (BNVA) | payer OTHER, SELFPAY | PROVIDERS: PCP Internal Medicine; Visit Provider Nurse Practitioner Family | DX: Z01.818 Encounter for other preprocedural examination (principal); K59.01 Slow transit constipation; K21.9 Gastro-esophageal reflux disease without esophagitis | CPT/HCPCS: 99212 ==

== ENCOUNTER 2025-02-07 10:53 | Outpatient (REF) | payer OTHER, SELFPAY ==
--- OUTSIDE RECORDS SUMMARY | 2025-02-07 12:52 | XMS_ITS | Clinical Summary ---
Author Organization [address] Address [address] [place] [phone] Phone Care Team Providers Care Team Cdl Driver Name Role Phone Harshad Castle MD Primary Care Provider [phone] Allergies Active Allergy Reactions Criticality Noted Date [...] 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 NPDR (nonproliferative diabe tic retinopathy) ([facility] V24, [facility] V28) 04/21/2017 Type 2 diabetes mellitus wit h eye manifestations ([facility] V24, [facility] V28) 04/21/2017 Overview (06/01/2024): Sees Dr. Donna ritter at [facility] Diabetic neuropathy ([facility] V24, [facility] V28) 0 04/21/2017 BPPV (benign paroxysmal positional vertigo) 10/01 Obesity (BMI 30.0-34.9) 07/08/2016 Diverticulosis 06/18/2015 GERD (gastroesophageal reflux disease) 5 HTN (hypertension) 06/18/2015 Hyperlipidemia 06/18/2015 Osteoarthritis, knee 06/18/2015 Overview (06/01/2024): Bilateral Positive PPD 06/18/2015 Tubular adenoma of colon 06/18/2015 Type 2 diabetes mellitus wit h cataract ([facility] V24, [facility] V28) 06/18/2015 Type 2 diabetes mellitus wit h neurological manifestations, controlled ([facility] V24, [facility] V28) 06/18/2015 Overview (06/01/2024): Sees Dr. Donna ritter at [facility] Encounters Date Type Department Care Team Description 01/17/2025 10:00 AM EDT Office Visit Orthopedic Surgery - [place] [address] [place] [address] [place] [phone] Esteban Donato DPM Controlled type 2 diabetes with neuropathy ([facility] V24, [facility] V28) (Primary Dx); Arthritis of both feet; Hammertoes of both feet; Pain in toes of both feet; Dermatophytosis, nail 11/14/2024 10:30 AM EDT Office Visit Orthopedic Surgery - [place] [address] [phone] Esteban Donato DPM Controlled type 2 diabetes with neuropathy ([facility] V24, [facility] V28) (Primary Dx); Arthritis of both [...] Type 2 diabetes mellitus wit h cataract ([facility] V24, [facility] V28) 06/18/2015 DX:Type 2 diabetes mellitus with cataract (HCC) BPPV (benign paroxysmal posi tional vertigo) 10/14/2016 DX:BPPV (benign paroxysmal p ositional vertigo) Type 2 diabetes mellitus wit h neurological manifestations, controlled ([facility] V24, [facility] V28) 06/18/2015 DX:Type 2 diabet es mellitus with neurological manifestations, controlled ([facility]) Type 2 diabetes mellitus wit h eye manifestations ([facility] V24, [facility] V28) 04/21/2017 DX:Type 2 diabetes mellitus with eye manifestations ([facility]) Diabetic retinopathy ([facility] V24, [facility] V28) 04/21/2017 DX:Diabetic retinopathy ([facility] ) Diabetic neuropathy ([facility] V24, [facility] V28) 04/21/2017 DX:Diabetic neuropathy ([facility]) Tinnitus aurium, 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 DX:Ti nnitus [...] Care Team (Late st Contact Info) Description 03/22/2025 10:30 AM EDT Office Visit Orthopedic Surgery [place] [id number] [phone] Esteban Donato, CAROLYN [address] [address] Health Maintenance Due Date Last Done Comments [...] Results * Urine Albumin Creatinine Ratio (01/04/2024) HM Urine Albumin Creatinine Ratio abstracted Result [facility] Historical Provider HEALTH MAINTENANCE Final Result * (ABNORMAL) Hemoglobin A1c (01/04/2024) [facility] Hemoglobin A1C 7.0(A) <=6.5 % Blood Venous blood specimen / Unknown Result [facility] Provider LAB BLOOD ORDERABLES Kassidy l Result * Lipid panel (01/04/2024) [facility] LDL/HDL Ratio 2 0 - 4 Triglycerides 103 0 - 150 mg/dL Cholesterol 144 0 - 200 mg/dL HDL 88 >=40 mg/dL LDL Cholesterol 36 0 - 100 mg/dL Blood Venous blood specimen / Unknown Result [facility] Provider LAB BLOOD ORDERABLES Kassidy l Result [...] (World Health Organization Fracture Risk Assessment) [facility] Department of Internal Medicine recommends using [...] (World Health Organization Fracture Risk Assessment) [facility] Department of Internal Medicine recommendsusing National [...] Result * Annual BMP Blood Test (11/05/2022) Pathologist [facility] Annual BMP Blood Test abstracted Historical Provider HEALTH MAINTENANCE Final Result * Hepatitis C Screening (03/15/2015) Pathologist [facility] Hepatitis C Screening abstarcted Historical Provider HEALTH MAINTENANCE Final Result from Last 3 Months or Most Recently Relevant to Health Maintenance Insurance [facility] [place] [address] [place]ICA[place] Care Teams Team Cdl Driver Relationship Specialty Start Date End Date Harshad Castle MD [address] [place] [phone] PCP - General Internal Medicine 07/08/24
[2025-02-07 14:00] LABS: Anion Gap 15 (12-20); Blood Urea Nitrogen 21 mg/dL (9-16); Calcium 10.4 mg/dL (8.4-10.2); Carbon Dioxide 28 mmol/L (22-29); Chloride 102 mmol/L (96-108); Estimated Glomerular Filt Rate > 60; Glucose Random 110 mg/dL (60-115); Potassium 4.7 mmol/L (3.3-5.1); Sodium 140 mmol/L (135-145)
== END 2025-02-07 10:54 | disposition home or self-care (01) ==
LOC: HO.HMGCLDS 10:53
PROVIDERS: PCP Internal Medicine; Visit Provider Internal Medicine
DX: E87.5 Hyperkalemia (principal)
CPT/HCPCS: 36415; 80048

== ENCOUNTER 2025-02-15 10:40 | Outpatient (AMB) | payer MEDICARE, SELFPAY ==
[2025-02-15 10:43] VITALS: BP 122/70; PULSE 84; TEMP 36.9; O2SAT 96; BMI 25.2
--- NOTE | 2025-02-15 10:43 | A.OFFPC_ITS ---
Vital Signs 02/15/25 10:43 Height 5 ft 1 in Weight 133 lb 4 oz BMI 25.2 BP 122/70 Blood Pressure Location Rt brachial Position Sitting Pulse 84 Pulse Source Pulse Oximeter Temp 98.5 F Temp Source Oral Pulse Oximetry (%) 96 Oxygen Delivery Method Room Air Intake Visit Reasons: 3 months f/up - see comments Allergies strawberry Allergy (Severe, Verified 02/15/25 10:49) Anaphylaxis Iodinated Contrast Media (IV DYE, IODINE CONTAINING) Allergy (Intermediate, Verified 02/15/25 10:49) DYSPNEA apple Allergy (Verified 02/15/25 10:49) Facial Swelling Medication List - Last Reconciled 02/15/25 by Harshad Castle MD alcohol swabs (Alcohol Pads) 1 pad topical BID aspirin (Adult Low Dose Aspirin) 81 mg PO DAILY bisacodyl (Dulcolax (bisacodyl)) 10 mg (2 x 5 mg) PO BEDTIME blood sugar diagnostic ([email or web address] Verio test strips) Check blood sugar twice daily blood-glucose meter ([email or web address] Verio Flex Meter) Check blood sugar twice daily cetirizine (Zyrtec) 10 mg PO DAILY cyanocobalamin (vitamin B-12) 100 mcg PO .qod 90 days dulaglutide (Trulicity) 0.75 mg (0.5 mL) subcut QWEEK 90 days fluticasone propionate 50 mcg/actuation (Flonase Allergy Relief) 1 spray intranasal DAILY gabapentin 100 mg PO .qhs lancets ([email or web address] Delica Plus Lancet) Check blood sugar twice daily. lisinopril 10 mg PO DAILY 90 days metformin ER 1,000 mg (2 x 500 mg) PO BID omeprazole 20 mg PO DAILY pen needle, diabetic (BD Jennifer 2nd Gen Pen Needle) Once a day pioglitazone 30 mg PO DAILY 90 days polyethylene glycol 3350 (Miralax) 238 grams PO ONCE rosuvastatin 40 mg PO DAILY 90 days Tobacco use date assessed: 11/15/24 Dental Screening Dental Screen Date: 11/15/24 HPI 3 months f/up - see comments HPI0 Details History - The patient is a 79-year-old female pr esenting for a follow-up for chronic medical conditions. - History of type 2 diabetes managed wit h oral medications and Trulicity. - Allergies controlled with cetirizine a nd Flonase. - Neuropathic symptoms managed with rita pentin. - Previous normal lab results including electrolytes and kidney function noted in prior visits. - Past laboratory findings include an A1 c of 6.9% and hemoglobin of 11.0 g/dL with a hematocrit of 36.2% in October. - History of chronic constipation, treat ed with MiraLAX. - Previous hypertension diagnosis, manag ed with lisinopril and rosuvastatin. - No current complaints or side effects reported from medications. - Blood pressure reported as stable. - Scheduled for physical examination in May with additional lab work to be completed before the appointment. Medical History: - Type 2 Diabetes Mellitus - Hypertension - Allergic Rhinitis - Diabetic Neuropathy - Chronic Constipation - Hyperlipidemia Medications: - Cetirizine for allergies - Vitamin B12 - Trulicity 0.75 mg for type 2 diabetes - Flonase for allergies - Gabapentin for diabetic neuropathy - Lisinopril 10 mg for hypertension - Metformin 1 g BID for type 2 diabetes - Omeprazole - Pioglitazone 30 mg for type 2 diabetes - Rosuvastatin 40 mg - MiraLAX for chronic constipation Diagnostic Results: - Labs: Previous lab showed normal elect rolytes and kidney function. A1c was 6.9% in October. Hemoglobin was 11.0 g/dL in October with a hematocrit of 36.2%. Problem List - Type 2 Diabetes Mellitus - Essential Hypertension - Allergic Rhinitis - Diabetic Neuropathy - Chronic Constipation - diabetic retinopathy and Nephropathy Patient Instructions - Continue current medications as prescr ibed. - Follow up in three months for a physic al examination. - Complete recommended blood tests befor e the next visit. Review of Systems. - General: No fever no chills - Neurological: No headaches no dizziness - Ear nose throat: No sore throat no hearing difficulty no ear pain - Cardiovascular: No syncope, no chest pain, no palpitations - Gastrointestinal: No nausea vomiting or diarrhea - Endocrine: No polyuria polydipsia no heat intolerance - Genitourinary: No dysuria , no blood in urine Physical Exam - General: No acute distress - HEENT: No acute findings - Neck: Supple - Respiratory system: Able to talk in f ull sentences, no audible wheeze - Cardiovascular: S1-S2 regular in rate and rhythm - Gastrointestinal: No pain - Extremities: No new findings - APPRAISER LAND: Alert awake oriented x3 motor se nsory intact - Skin: Normal turgor [facility] Medical History GERD (gastroesophageal reflux disease) Diabetic nephropathy associated with type 2 diabetes mellitus Diabetic polyneuropathy associated with type 2 diabetes mellitus Diabetes type 2, controlled Proliferative diabetic retinopathy 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 Father No problems noted. Social History Household Members: Spouse Housing: Apartment Alcohol intake: never Patient Tobacco Use Status: Former Tobacco user e-Cigarette/Vaping Use: Never Used Current occupational status: unemployed Cognitive needs: No Hearing needs: Yes Vision needs: Yes Questionnaire Thrive Questionnaire Date Thrive assessed: 11/15/24 I am a: Patient What is your living situation today?: I have a steady place to live Within the past 12 months, did the food you bought not last and you didn't have the money to get more?: Never true Within the past 12 months, did you worry whether your food would run out before you got money to buy more?: Never true Do you have trouble paying for medicines?: No Do you have trouble getting transportation to medical appointments?: No Do you have trouble paying your heating and electricity bill?: No Do you have trouble taking care of your child, family member or friend?: No Do you have trouble with day-to-day activities such as bathing, preparing meals, shopping, managing finances, etc.?: Yes Are you currently unemployed and looking for a job?: No Are you interested in more education?: No Please select the resources that you would like help with: None Currently or been in a relationship where the following occur: No concerns reported THRIVE Score: 0 JOEY-7 AMB Questionnaire JOEY-7 Date JOEY - 7 assessed: 11/15/24 Source: Developed by Drs. Jorge Guzman, Madina Hinojosa, Luke Browning and colleagues, with an educational lissy from [employer]. Physical exam (Primary Care) Vital Signs: Last Vital Signs Temp 98.5 F 06/18/25 10:43 Pulse 84 02/15/25 10:43 BP 122/70 02/15/25 10:43 Pulse Ox 96 02/15/25 10:43 Oxygen Delivery Method Room Air 02/15/25 10:43 BMI result Body Mass Index 25.2 Tobacco/Smoking Status: Tobacco use Status Tobacco use date assessed 11/15/24 02/15/25 10:50 Patient Tobacco Use Status Former Tobacco user 02/15/25 10:50 e-Cigarette/Vaping Use Never Used 02/15/25 10:50 Thrive Assessment: Date of Thrive Assessment Date Thrive assessed 11/15/24 02/15/25 10:50 Currently or been in a relationship where the following occur: No concerns reported Coding Level of Care Code Est Pt Level 4 (74649) Complex EM visit Add On G2211 Diagnoses Controlled type 2 diabetes mellitus with microalbuminuria, with long-term current use of insulin E11.29; R80.9; Z79.4 Diabetes mellitus complication detail: with microalbuminuria Diabetes mellitus complication status: with kidney complications Diabetes mellitus terminal make up operator insulin use: with senior care use 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 Z79.4 Essential hypertension I10 Hypertension type: essential hypertension Dyslipidemia E78.5 Stable proliferative diabetic retinopathy of both eyes associated with type 2 diabetes mellitus E11.3553 Diabetes mellitus type: type 2 Laterality: bilateral Proliferative retinopathy type: stable Gastroesophageal reflux disease, unspecified whether esophagitis present K21.9 Esophagitis presence: esophagitis presence not specified Diabetic nephropathy associated with type 2 diabetes mellitus E11.21 Diabetic polyneuropathy associated with type 2 diabetes mellitus E11.42 Assessment & Plan Assessment & Plan (1) Diabetes type 2, controlled: Code(s): E11.9 - Type 2 diabetes mellitus without complications Category: Medical Qualifiers: Diabetes mellitus complication detail: with microalbuminuria Diabetes mellitus complication status: with kidney complications Diabetes mellitus senior care insulin use: with terminal make up operator use Qualified Code(s): E11.29 - Type 2 diabetes mellitus with other diabetic kidney complication; R80.9 - Proteinuria, unspecified; Z79.4 - 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 (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: Code(s): Z79.4 - 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 Category: Medical (3) Hypertension: Code(s): I10 - Essential (primary) hypertension Category: Medical Qualifiers: Hypertension type: essential hypertension Qualified Code(s): I10 - Essential (primary) hypertension (4) Dyslipidemia: Code(s): E78.5 - Hyperlipidemia, unspecified Category: Medical (5) Proliferative diabetic retinopathy: Code(s): E11.3599 - Type 2 diabetes mellitus with proliferative diabetic retinopathy without macular edema, unspecified eye Category: Medical Qualifiers: Diabetes mellitus type: type 2 Laterality: bilateral Proliferative retinopathy type: stable Qualified Code(s): E11.3553 - Type 2 diabetes mellitus with stable proliferative diabetic retinopathy, bilateral (6) GERD (gastroesophageal reflux disease): Code(s): K21.9 - Gastro-esophageal reflux disease without esophagitis Category: Medical Qualifiers: Esophagitis presence: esophagitis presence not specified Qualified Code(s): K21.9 - Gastro-esophageal reflux disease without esophagitis (7) Diabetic nephropathy associated with type 2 diabetes mellitus: Code(s): E11.21 - Type 2 diabetes mellitus with diabetic nephropathy Category: Medical (8) Diabetic polyneuropathy associated with type 2 diabetes mellitus: Code(s): E11.42 - Type 2 diabetes mellitus with diabetic polyneuropathy Category: Medical Plan History - The patient is a 79-year-old female presenting for a follow-up for chronic medical conditions. - History of type 2 diabetes managed with oral medications and Trulicity. - Allergies controlled with cetirizine and Flonase. - Neuropathic symptoms managed with gabapentin. - Previous normal lab results including electrolytes and kidney function noted in prior visits. - Past laboratory findings include an A1c of 6.9% and hemoglobin of 11.0 g/dL with a hematocrit of 36.2% in October. - History of chronic constipation, treated with MiraLAX. - Previous hypertension diagnosis, managed with lisinopril and rosuvastatin. - No current complaints or side effects reported from medications. - Blood pressure reported as stable. - Scheduled for physical examination in May with additional lab work to be completed before the appointment. Medical History: - Type 2 Diabetes Mellitus - Hypertension - Allergic Rhinitis - Diabetic Neuropathy - Chronic Constipation - Hyperlipidemia Medications: - Cetirizine for allergies - Vitamin B12 - Trulicity 0.75 mg for type 2 diabetes - Flonase for allergies - Gabapentin for diabetic neuropathy - Lisinopril 10 mg for hypertension - Metformin 1 g BID for type 2 diabetes - Omeprazole - Pioglitazone 30 mg for type 2 diabetes - Rosuvastatin 40 mg - MiraLAX for chronic constipation Diagnostic Results: - Labs: Previous lab showed normal electrolytes and kidney function. A1c was 6.9% in October. Hemoglobin was 11.0 g/dL in October with a hematocrit of 36.2%. Problem List - Type 2 Diabetes Mellitus - Essential Hypertension - Allergic Rhinitis - Diabetic Neuropathy - Chronic Constipation - diabetic retinopathy and Nephropathy Patient Instructions - Continue current medications as prescribed. - Follow up in three months for a physical examination. - Complete recommended blood tests before the next visit. Orders: Orders Hemoglobin A1c 3 Months E11.21 - Type 2 diabetes mellitus with diabetic nephropathy, E11.29 - Type 2 diabetes mellitus with other diabetic kidney complication, E11.3553 - Type 2 diabetes mellitus with stable proliferative diabetic retinopathy, bilateral, E11.42 - Type 2 diabetes mellitus with diabetic polyneuropathy, E78.5 - Hyperlipidemia, unspecified, I10 - Essential (primary) hypertension, K21.9 - Gastro-esophageal reflux disease without esophagitis, R80.9 - Proteinuria, unspecified, Z79.4 - [facility] (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 Complete Blood Count Auto Diff 3 Months E11.21 - Type 2 diabetes mellitus with diabetic nephropathy, E11.29 - Type 2 diabetes mellitus with other diabetic kidney complication, E11.3553 - Type 2 diabetes mellitus with stable proliferative diabetic retinopathy, bilateral, E11.42 - Type 2 diabetes mellitus with diabetic polyneuropathy, E78.5 - Hyperlipidemia, unspecified, I10 - Essential (primary) hypertension, K21.9 - Gastro-esophageal reflux disease without esophagitis, R80.9 - Proteinuria, unspecified, Z79.4 - 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 Panel 3 Months E11.21 - Type 2 diabetes mellitus with diabetic nephropathy, E11.29 - Type 2 diabetes mellitus with other diabetic kidney complication, E11.3553 - Type 2 diabetes mellitus with stable pr oliferative diabetic retinopathy, bilateral, E11.42 - Type 2 diabetes mellitus with diabetic polyneuropathy, E78.5 - Hyperlipidemia, unspecified, I10 - Essential (primary) hypertension, K21.9 - Gastro-esophageal reflux disease without esophagitis, R80.9 - Proteinuria, unspecified, Z79.4 - [facility] (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 Vitamin B12 3 Months E11.21 - Type 2 diabetes mellitus with diabetic nephropathy, E11.29 - Type 2 diabetes mellitus with other diabetic kidney complication, E11.3553 - Type 2 diabetes mellitus with stable proliferative diabetic retinopathy, bilateral, E11.42 - Type 2 diabetes mellitus with diabetic polyneuropathy, E78.5 - Hyperlipidemia, unspecified, I10 - Essential (primary) hypertension, K21.9 - Gastro-esophageal reflux disease without esophagitis, R80.9 - Proteinuria, unspecified, Z79.4 - 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 LDL Cholesterol Direct 3 Months E11.21 - Type 2 diabetes mellitus with diabetic nephropathy, E11.29 - Type 2 diabetes mellitus with other diabetic kidney complication, .3553 - Type 2 diabetes mellitus with stable proliferative diabetic retinopathy, bilateral, E11.42 - Type 2 diabetes mellitus with diabetic polyneuropathy, E78.5 - Hyperlipidemia, unspecified, I10 - Essential (primary) hypertension, K21.9 - Gastro-esophageal reflux disease without esophagitis, R80.9 - Proteinuria, unspecified, Z79.4 - [facility] (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 Vitamin D 25-OH (D2 and D3) 3 Months E11.21 - Type 2 diabetes mellitus with diabetic nephropathy, E11.29 - Type 2 diabetes mellitus with other diabetic kidney complication, .3553 - Type 2 diabetes mellitus with stable proliferative diabetic retinopathy, bilateral, E11.42 - Type 2 diabetes mellitus with diabetic polyneuropathy, E78.5 - Hyperlipidemia, unspecified, I10 - Essential (primary) hypertension, K21.9 - Gastro-esophageal reflux disease without esophagitis, R80.9 - Proteinuria, unspecified, Z79.4 - 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 - Type 2 diabetes mellitus with other diabetic kidney complication, .3553 - Type 2 diabetes mellitus with stable proliferative diabetic retinopathy, bilateral, E11.42 - Type 2 diabetes mellitus with diabetic polyneuropathy, E78.5 - Hyperlipidemia, unspecified, I10 - Essential (primary) hypertension, K21.9 - Gastro-esophageal reflux disease without esophagitis, R80.9 - Proteinuria, unspecified, Z79.4 - [facility] (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
--- OUTSIDE RECORDS SUMMARY | 2025-02-15 12:11 | XMS_ITS | Clinical Summary ---
Author Organization [address] Address [address] [place] [id number] Phone Care Team Providers Care Set Builder Name Role Phone Harshad Castle MD Primary Care Provider [phone] Allergies Active Allergy Reactions Criticality Noted Date [...] 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 NPDR (nonproliferative diabe tic retinopathy) ([facility] V24, [facility] V28) 04/21/2017 Type 2 diabetes mellitus wit h eye manifestations ([facility] V24, [facility] V28) 04/21/2017 Overview (06/01/2024): Sees Dr. Donna ritter at [facility] Diabetic neuropathy ([facility] V24, [facility] V28) 0 04/21/2017 BPPV (benign paroxysmal positional vertigo) 10/01 Obesity (BMI 30.0-34.9) 07/08/2016 Diverticulosis 06/18/2015 GERD (gastroesophageal reflux disease) 5 HTN (hypertension) 06/18/2015 Hyperlipidemia 06/18/2015 Osteoarthritis, knee 06/18/2015 Overview (06/01/2024): Bilateral Positive PPD 06/18/2015 Tubular adenoma of colon 06/18/2015 Type 2 diabetes mellitus wit h cataract ([facility] V24, [facility] V28) 06/18/2015 Type 2 diabetes mellitus wit h neurological manifestations, controlled ([facility] V24, [facility] V28) 06/18/2015 Overview (06/01/2024): Sees Dr. Donna ritter at [facility] Encounters Date Type Department Care Team Description 01/17/2025 10:00 AM EDT Office Visit Orthopedic Surgery - [facility] [address] [place] [id number] Esteban Donato, CAROLYN Controlled type 2 diabetes with neuropathy ([facility] V24, [facility] V28) (Primary Dx); Arthritis of both feet; [...] diabetes mellitus wit h cataract ([facility] V24, [facility] V28) 06/18/2015 DX:Type 2 diabetes mellitus with cataract (HCC) BPPV (benign paroxysmal posi tional vertigo) 10/14/2016 DX:BPPV (benign paroxysmal p ositional vertigo) Type 2 diabetes mellitus wit h neurological manifestations, controlled ([facility] V24, [facility] V28) 06/18/2015 DX:Type 2 diabet es mellitus with neurological manifestations, controlled ([facility]) Type 2 diabetes mellitus wit h eye manifestations ([facility] V24, [facility] V28) 04/21/2017 DX:Type 2 diabetes mellitus with eye manifestations ([facility]) Diabetic retinopathy ([facility] V24, [facility] V28) 04/21/2017 DX:Diabetic retinopathy ([facility] ) Diabetic neuropathy ([facility] V24, [facility] V28) 04/21/2017 DX:Diabetic neuropathy ([facility]) Tinnitus aurium, 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 DX:Ti [...] AM EDT Office Visit Orthopedic Surgery - [facility] [address] [facility] [address] [place] [address] Esteban Donato, DPM [address] [place] [address] Health Maintenance Due Date Last Done Comments [...] Recently Relevant to Health Maintenance Results * HM Urine Albumin Creatinine Ratio (01/04/2024) Urine Albumin Creatinine Ratio abstracted Historical Provider HEALTH MAINTENANCE Final Result [...] Narrative 06/18/2023 4:08 PM EDT BONE DENSITY Lumbar Spine T-score is -1.7 (SD relative to 20-29 y/o adult) Z-score is +0.7 (SD relative to age matched peers) This is consistent with osteopenia by criteria defined by the WHO. Left Hip T-score is -2.1 Z-score is -0.1 This is consistent with osteopenia by criteria defined by the WHO. Comparison exam(s): significant decrease in bone density of hip and lumbar spine when compared to most recent bone density examination Confidence level is +/-95%. Impression: Based on the World Health Organization criteria, Jinny Hoyos should be classified as having osteopenia. This patient has a 8.0% risk of major osteoporotic fracture and a 2.1% risk of hip fracture over the next 10 years. (World Health Organization Fracture Risk Assessment) The [facility] Department of Internal Medicine recommends [...] (World Health Organization Fracture Risk Assessment) The [facility] Department of Internal Medicine recommendsusing [...] typically benign parenchymal asymmetries IMPRESSION: : 1. No mammographic evidence of [...] Result * Hepatitis C Screening (03/15/2015) Pathologist [facility] Hepatitis C Screening abstarcted Result [facility] Historical Provider HEALTH MAINTENANCE Final Result from Last 3 Months or Most Recently Relevant to Health Maintenance Insurance [facility] MEDICAID - [place] Care Teams Set Builder Relationship Specialty Start Date End Date Harshad Castle MD [address] [place] [id number] PCP - General Internal Medicine 07/08/24
== END 2025-02-15 11:03 | disposition home or self-care (01) ==
LOC: HO.HMCC 10:41
PROVIDERS: PCP Internal Medicine; Visit Provider Internal Medicine
DX: E11.29 Type 2 diabetes mellitus with other diabetic kidney complication (principal); Z79.4 Long term (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; E11.3553 Type 2 diabetes mellitus with stable proliferative diabetic retinopathy, bilateral; E11.21 Type 2 diabetes mellitus with diabetic nephropathy; E11.42 Type 2 diabetes mellitus with diabetic polyneuropathy; R80.9 Proteinuria, unspecified; I10 Essential (primary) hypertension; E78.5 Hyperlipidemia, unspecified; K21.9 Gastro-esophageal reflux disease without esophagitis

== ENCOUNTER → 2025-02-15 10:40 | Outpatient (BNVA) | payer MEDICARE, SELFPAY | PROVIDERS: PCP Internal Medicine; Visit Provider Internal Medicine | DX: E11.29 Type 2 diabetes mellitus with other diabetic kidney complication (principal); R80.9 Proteinuria, unspecified; Z79.4 Long term (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; I10 Essential (primary) hypertension; E78.5 Hyperlipidemia, unspecified; K21.9 Gastro-esophageal reflux disease without esophagitis; E11.21 Type 2 diabetes mellitus with diabetic nephropathy; E11.42 Type 2 diabetes mellitus with diabetic polyneuropathy | CPT/HCPCS: 99212 ==

== ENCOUNTER 2025-02-18 19:25 | Emergency (ER) | payer MEDICARE, SELFPAY ==
--- NOTE | ~2025-02-18 | XR_ITS ---
CLINICAL HISTORY: pain, injury Exam: AP, lateral, and oblique views of the right elbow. Comparison: None provided. Findings: Bony alignment is anatomic. No acute fracture. No joint effusion. Minor degenerative change of the elbow. Enthesopathic change of the lateral epicondyle. Impression: No fracture. This document has been electronically signed by: Arsen Duff MD on 02/18/2025 21:48:17
--- NOTE | ~2025-02-18 | XR_ITS ---
CLINICAL HISTORY: R great toe pain Exam: AP, lateral, and oblique views of the right foot. Comparison: None provided. Findings: Alignment at the Lisfranc articulation is anatomic. Bones are osteopenic. No acute fracture. No erosions. [id number]-ww-[id number] multifocal degenerative joint disease with areas of joint space narrowing and osteophyte formation. Rectangular shaped calcification measuring 1.8 x 0.6 cm in size identified along the plantar aspect of the foot, likely within the mid plantar fascia. Moderate-sized plantar calcaneal spur. Impression: 1. No acute fracture. 2. Degenerative changes as above with calcification likely within the plantar fascia. This document has been electronically signed by: Arsen Duff MD on 02/18/2025 20:15:26
--- NOTE | ~2025-02-18 | XR_ITS ---
CLINICAL HISTORY: pain, injury Exam: AP, lateral, and oblique views of the left knee. Comparison: None provided. Findings: Bony alignment is anatomic. No acute fracture or joint effusion. Mild degenerative change within the the involving all 3 compartments. Enthesopathic change of the extensor mechanism. No erosions. Impression: No acute finding. This document has been electronically signed by: Arsen Duff MD on 02/18/2025 21:43:49
--- NOTE | ~2025-02-18 | XR_ITS ---
CLINICAL HISTORY: pain s p fall Exam: AP pelvis with AP and frog-leg lateral views of the left hip. Comparison: None. Findings: Bony alignment of the hip joints is anatomic. No acute fracture. [id number] degenerative change of the left hip joint with mild degenerative change of the right hip joint. No erosions. Pubic rami are intact. Sacroiliac joints and pubic symphysis are anatomically aligned with mild degenerative change. Prominent stool throughout the colon. Impression: No acute fracture. This document has been electronically signed by: Arsen Duff MD on 02/18/2025 20:09:24
[2025-02-18 19:26] VITALS: BP 130/59; PULSE 103; RESP 20; TEMP 36.8; O2SAT 98; BMI 25.5
--- NOTE | 2025-02-18 19:28 | ED_ITS ---
HPI - General Adult General Chief complaint: Extremity Injury, Lower Stated complaint: object fell on her while moving it Time Seen by Provider: 02/18/25 20:27 Source: patient Mode of arrival: ambulatory Limitations: no limitations History of Present Illness ED Provider: Lillie Calvin PA-C HPI narrative: Patient is a 79 year old assigned female at with a history of GERD, DM, and HTN presenting to the emergency department today with left hip pain, right foot / toe pain, left knee pain, and right elbow pain after a fall. Patient states that she was trying to move a large piece of furniture when she lost her balance and fell. Patient denies any head strike or loss of consciousness. Patient denies any dizziness, lightheadedness, abdominal pain, nausea, vomiting, fever, chills, blurry vision, double vision, loss of vision, chest pain, difficulty breathing, shortness of breath, back pain, night sweats, pain with urination, increased urinary frequency, increased urinary urgency, blood in her urine or stool, syncope or a near syncopal episode, bowel incontinence, bladder incontinence, or any other complaints at this time. Relieving factors: none Exacerbating factors: none Associated symptoms: denies other symptoms Treatments prior to arrival: none Related Data Previous Rx's ?Medication ?Instructions ?Recorded pen needle, diabetic 32 gauge x #100 ea 12/18/21 (BD Jennifer 2nd Gen Pen Needle) aspirin 81 mg tablet,delayed 81 mg PO DAILY #90 tabs 1 10/17/23 release (Adult Low Dose Aspirin) cyanocobalamin (vitamin B-12) 100 100 mcg PO .qod 90 d ays #45 tabs 08/16/24 mcg tablet lisinopril 10 mg tablet 10 mg PO DAILY 90 days #90 t abs 08/16/24 alcohol swabs (Alcohol Pads) 1 pad topical BID #200 ea 09/01/24 blood sugar diagnostic (OneTouch #100 ea 09/09/24 Verio test strips) blood-glucose meter (OneTouch #1 ea 09/09/24 Verio Flex Meter) lancets 33 gauge (OneTouch Delica #100 ea 09/09/24 Plus Lancet) metformin 500 mg tablet,extended 1,000 mg (2 x 500 mg) PO BID #360 11/15/24 release 24 hr tabs pioglitazone 30 mg tablet 30 mg PO DAILY 90 days #90 t abs 11/15/24 rosuvastatin 40 mg tablet 40 mg PO DAILY 90 days #90 t abs 11/15/24 cetirizine 10 mg capsule (Zyrtec) 10 mg PO DAILY #7 ca ps 11/18/24 bisacodyl 5 mg tablet,delayed 10 mg (2 x 5 mg) PO BEDT ISAIAH #180 12/12/24 release (Dulcolax (bisacodyl)) tabs polyethylene glycol 3350 17 238 g PO ONCE #238 grams 0 12/12/24 gram/dose oral powder (Miralax) dulaglutide 0.75 mg/0.5 mL 0.75 mg (0.5 mL) subcut QWE EK 90 01/18/25 subcutaneous pen injector days #6.5 mL (Trulicity) gabapentin 100 mg capsule 100 mg PO .qhs #90 caps 12/30 03/24 omeprazole 20 mg capsule,delayed 20 mg PO DAILY #90 ca ps 01/24/25 release fluticasone propionate 50 1 spray intranasal DAILY #16 grams 01/25/25 mcg/actuation nasal spray,suspension (Flonase Allergy Relief) Allergies Allergy/AdvReac Type Severity Reaction Status Date / Time strawberry Allergy Severe Anaphylaxis Verified 02/18/25 19:33 Iodinated Contrast Media (IV Allergy Intermediate DYSPNEA Verified 02/18/25 19:33 DYE, IODINE CONTAINING) apple Allergy Facial Verified 02/18/25 19:33 Swelling Review of Systems Constitutional: Constitutional: Reports no additional constitutional complaints, Denies chills, Denies fever(s) and Denies night sweats Eyes: Eyes: Reports no additional eye complaints, Denies blurry vision, Denies change in vision, Denies diplopia, Denies eye discharge, Denies loss of vision and Denies eye pain ENT: Denies dizziness Cardiovascular: Cardiovascular: Reports no additional cardiovascular complaints, Denies chest pain, Denies lightheadedness, Denies Loss of Consciousness and Denies dyspnea Respiratory: Respiratory: Reports no additional respiratory complaints and Denies dyspnea Gastrointestinal: Gastrointestinal: Reports no additional gastrointestinal complaints, Denies abdominal pain, Denies melena, Denies hematochezia, Denies change in bowel habits and Denies change in stool character Genitourinary: Genitourinary: Denies hematuria, Denies urinary frequency, Denies dysuria, Denies urinary incontinence, Denies urinary hesitancy and Denies urinary urgency Musculoskeletal: Musculoskeletal: Reports no additional musculoskeletal complaints, Denies numbness and Denies tingling Comments: Left hip pain Right foot / toe pain Left knee pain Right elbow pain Neurologic: Denies dizziness, Denies loss of vision, Denies numbness and Denies tingling Psychiatric: Psychiatric: Reports no additional psychiatric complaints Endocrine: Endocrine: Reports no additional endocrine complaints Hematologic/Lymphatic: Hematologic/Lymphatic: Reports no additional hematologic/lymphatic complaints Allergic/Immunologic: Allergic/Immunologic: Reports no additional allergic/immunologic complaints PMFSH Past Medical History Attestation statement: The following information was validated with the patient. 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 Father No problems noted. Social History Social History Household Members: Spouse Housing: Apartment Alcohol intake: never Patient Tobacco Use Status: Former Tobacco user e-Cigarette/Vaping Use: Never Used Advance Directives: No Advance Directives Information Provided: No Current occupational status: unemployed Cognitive needs: No Hearing needs: Yes Vision needs: Yes Physical Exam ED Vital Signs: Vital Signs - 24 hr 02/18/25 19:26 02/18/25 22:35 Temperature 98.3 F 98.3 F Pulse Rate 103 H 103 H Respiratory Rate 20 20 Blood Pressure 130/59 L 130/59 L Pulse Oximetry 98 98 Oxygen Delivery Method Room Air Room Air BMI result Body Mass Index 25.5 Const General: cooperative, no acute distress, alert and awake Nutritional Appearance: well nourished Orientation/consciousness: patient oriented x3 HENMT Head: Yes normal to inspection and Yes atraumatic Ears: hearing grossly normal bilaterally and external ears normal General nose exam: Normal external nose present, no nasal discharge noted and no epistaxis Face and sinus: Yes normal facial exam, No abrasion and No laceration Mouth: Normal oral and palatal mucosa present, no drooling and no muffled voice Eyes General: appearance normal, both eyes and all related structures Periorbital: periorbital findings normal Eyelids: Yes eyelids normal Conjunctivae: conjunctivae normal Pupils: Equal, round and reactive pupils present EOM: EOMs intact bilaterally Neck Neck: Yes normal visual inspection, Yes full ROM and Yes no lymphadenopathy Resp Effort & Inspection: normal respiratory effort and able to speak in complete sentences Neuro General: patient oriented x3, moves all extremities and CN's II-XI intact bilaterally Cranial nerves: Yes Equal, round and reactive pupils present Cognition (Neuro): normal cognition Extrem Other: bruising to the right great toe General: Yes full ROM and Yes capillary refill normal Psych Appearance: grossly normal Mental Status: mental status grossly normal Affect: normal affect Attitude: cooperative Thought process: Normal thought process present Thought content: Normal thought content present Insight: Good insight present (Psych) Course Course Course Narrative: This is an RME: Additional HPI, ROS, PE not included below will be deferred to primary provider. RME assessment and note performed by: Jessica White PA-C This is a [id number]-female, with a hx of DM, dyslipidemia, hypertension, GERD, who presents to the ER with complaint of right great toe pain and left posterior hip pain s/p mechanical fall. Reports that she was moving furniture at her house and she fell, injuring her left hip and right toe. Right toe with ecchymosis and TTP, no TTP overlying the mallelous. No head strike or LOC. No headache, dizziness. No on AC. Plan: xrays Medical Decision Making Medical Decision Making MDM Narrative: Patient is a 79 year old assigned female at with a history of GERD, DM, and HTN presenting to the emergency department today with left hip pain, right foot / toe pain, left knee pain, and right elbow pain after a fall. Patient's physical exam was as noted in the physical exam portion of this note. Patient's left hip, right foot, left knee, and right elbow x-rays showed no acute process. I explained my physical exam findings as well as all test results to the patient. I answered all questions asked by the patient. I stressed the importance of the patient taking her medication as directed (either prescribed or as the over the counter packaging recommends). I stressed the importance of the patient following up with her primary care provider. I stressed the importance of the patient returning to the emergency department immediately if her symptoms were to worsen or if she were to develop any dizziness, shortness of breath, difficulty breathing, chest pain, blurry vision, loss of vision, nausea, vomiting, abdominal pain, fever, chills, back pain, or any other complaints. Patient verbalized agreement and understanding with this treatment plan and discharge. Differential Diagnosis Differential Diagnoses: The differential diagnosis associated with the presentation includes Elbow sprain Elbow strain Knee sprain Knee strain Toe fracture Toe contusion Toe pain Fall Admission/Observation Consideration of admission/observation: Escalation of care including admission/observation considered Patient would have been admitted to the hospital had her work up had any findings where hospital admission was appropriate and her clinical presentation warranted hospital admission. Independent Interpretation I performed an independent interpretation of an: Plain X-Ray Interpretation: My interpretation is in agreement with the radiologist's impression of these imaging studies. CLINICAL HISTORY: pain s p fall Exam: AP pelvis with AP and frog-leg lateral views of the left hip. Comparison: None. Findings: Bony alignment of the hip joints is anatomic. No acute fracture. [id number] degenerative change of the left hip joint with mild degenerative change of the right hip joint. No erosions. Pubic rami are intact. Sacroiliac joints and pubic symphysis are anatomically aligned with mild degenerative change. Prominent stool throughout the colon. Impression: No acute fracture. This document has been electronically signed by: Arsen Duff MD on 20:09:24 Dictated By: Arsen Duff MD Signed By: Electronically signed by Arsen Duff MD 02/18/252008 CLINICAL HISTORY: R great toe pain Exam: AP, lateral, and oblique views of the right foot. Comparison: None provided. Findings: Alignment at the Lisfranc articulation is anatomic. Bones are osteopenic. No acute fracture. No erosions. Amxl-lj-wiftzfrg multifocal degenerative joint disease with areas of joint space narrowing and osteophyte formation. Rectangular shaped calcification measuring 1.8 x 0.6 cm in size identified along the plantar aspect of the foot, likely within the mid plantar fascia. Moderate- sized plantar calcaneal spur. Impression: 1. No acute fracture. 2. Degenerative changes as above with calcification likely within the plantar fascia. This document has been electronically signed by: Arsen Duff MD on 02/18/2025 20:15:26 Dictated By: Arsen Duff MD Signed By: Electronically signed by Arsen Duff MD 02/18/252015 CLINICAL HISTORY: pain, injury Exam: AP, lateral, and oblique views of the left knee. Comparison: None provided. Findings: Bony alignment is anatomic. No acute fracture or joint effusion. Mild degenerative change within the the involving all 3 compartments. Enthesopathic change of the extensor mechanism. No erosions. Impression: No acute finding. This document has been electronically signed by: Arsen Duff MD on 02/18/2025 21:43:49 Dictated By: Arsen Duff MD Signed By: Electronically signed by Arsen Duff MD 02/18/255 CLINICAL HISTORY: pain, injury Exam: AP, lateral, and oblique views of the right elbow. Comparison: None provided. Findings: Bony alignment is anatomic. No acute fracture. No joint effusion. Minor degenerative change of the elbow. Enthesopathic change of the lateral epicondyle. Impression: No fracture. This document has been electronically signed by: Arsen Duff MD on 02/18/2025 21:48:17 Dictated By: Arsen Duff MD Signed By: Electronically signed by Arsen Duff MD 02/18/25 [id number] Radiology Impression Discussion of test interpretation with radiology: I have reviewed the radiologist's reading. Discharge Plan Discharge Clinical Impression: Contusion of toe Patient Disposition: Home, Self-Care Additional Instructions: Follow up with your primary care provider. Return to the emergency department immediately if your symptoms worsen or if you develop any numbness, tingling, dizziness, shortness of breath, difficulty breathing, chest pain, blurry vision, loss of vision, nausea, vomiting, abdominal pain, fever, chills, back pain, or any other complaints. Please see the information below about our Patient Portal. If you are not yet enrolled in the [facility] Patient Portal, you will receive an enrollment email invitation following your visit to any [facility] setting. You may also self-enroll in the Patient Portal by visiting our website: [email or web address] The following information is required to access the Patient Portal: - Your [facility] Medical Record Number - Your personal home email address (must match what is in your electronic medical record, Registration staff can assist with this) - Name - Date of Capabilities of the Patient Portal: - Message some providers - View upcoming appointments - Access your health summary, medical history, and visit history - View current conditions and allergies - View procedure and lab results - View your medications, including guidelines, side effects, and precautions - Complete pre-appointment questionnaires requested by your provider - Ready summary reports of your office visits and procedures To access the Patient Portal Mobile Roxie, follow these directions: - Search NICO in the Orxie Store or Google Play Store - Download the Roxie - Search for [facility] - Enter your login/password Prescriptions: No Action (DME) pen needle, diabetic [BD Jennifer 2nd Gen Pen Needle] 32 gauge x 5/32 needle See Rx Instructions .ROUTE .MEDSUPPLY Qty: 100 11RF Rx Instructions: Once a day alcohol swabs [Alcohol Pads] Pads, Medicated 1 pad topical BID Qty: 200 11RF (DME) blood-glucose meter [OneTouch Verio Flex meter] Misc See Rx Instructions .Route Qty: 1 0RF Rx Instructions: Check blood sugar twice daily (DME) lancets [OneTouch Delica Plus Lancet] 33 gauge misc See Rx Instructions .Route Qty: 100 11RF Rx Instructions: Check blood sugar twice daily. (DME) OneTouch Verio test strips Strip See Rx Instructions .Route Qty: 100 11RF Rx Instructions: Check blood sugar twice daily Trulicity 0.75 mg/0.5 mL pen injector 0.75 mg subcut QWEEK 90 Days Qty: 6.5 2RF gabapentin 100 mg capsule 100 mg PO .qhs Qty: 90 1RF omeprazole 20 mg capsule,delayed release(DR/EC) 20 mg PO DAILY Qty: 90 1RF fluticasone propionate [Flonase Allergy Relief] 50 mcg/actuation spray,suspension 1 spray intranasal DAILY Qty: 16 0RF Rx Instructions: administer into each nostril Zyrtec 10 mg capsule 10 mg PO DAILY Qty: 7 0RF aspirin [Adult Low Dose Aspirin] 81 mg tablet,delayed release (DR/EC) 81 mg PO DAILY Qty: 90 3RF cyanocobalamin (vitamin B-12) 100 mcg tablet 100 mcg PO .qod 90 Days Qty: 45 3RF lisinopril 10 mg tablet 10 mg PO DAILY 90 Days Qty: 90 3RF metformin 500 mg tablet extended release 24 hr 1,000 mg PO BID Qty: 360 2RF pioglitazone 30 mg tablet 30 mg PO DAILY 90 Days Qty: 90 2RF rosuvastatin 40 mg tablet 40 mg PO DAILY 90 Days Qty: 90 1RF bisacodyl [Dulcolax (bisacodyl)] 5 mg tablet,delayed release (DR/EC) 10 mg PO BEDTIME Qty: 180 4RF polyethylene glycol 3350 [Miralax] 17 gram/dose powder 238 g PO ONCE Qty: 238 0RF Rx Instructions: As directed by gastroenterology department at [facility] Referrals: Harshad Castle MD [Primary Care Provider, Internal Medicine] Interventions: ED Discharge Assessment Last Done: 02/18/25 22:35 Discharge Date/Time: 02/18/25 22:36 Print Language: Palestinian
[2025-02-18 22:35] VITALS: BP 130/59; PULSE 103; RESP 20; TEMP 36.8; O2SAT 98
== END 2025-02-18 22:36 | disposition home or self-care (01) ==
PROVIDERS: Emergency Provider Emergency Medicine Emergency Medical Services; PCP Internal Medicine
DX: S90.111A Contusion of right great toe without damage to nail, initial encounter (principal); W01.190A Fall on same level from slipping, tripping and stumbling with subsequent striking against furniture, initial encounter; Y93.E9 Activity, other interior property and clothing maintenance; Y92.039 Unspecified place in apartment as the place of occurrence of the external cause; Y99.9 Unspecified external cause status; M25.552 Pain in left hip; M79.671 Pain in right foot; M25.562 Pain in left knee; M25.521 Pain in right elbow; E11.9 Type 2 diabetes mellitus without complications; I10 Essential (primary) hypertension; E78.5 Hyperlipidemia, unspecified; Z79.4 Long term (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; Z87.891 Personal history of nicotine dependence
CPT/HCPCS: 73080; 73502; 73564; 73630; 99282; 99283

== ENCOUNTER → 2025-02-18 19:32 | Outpatient (BNV) | payer MEDICARE, SELFPAY | PROVIDERS: PCP Internal Medicine; Visit Provider Radiology Diagnostic Radiology | DX: M25.561 Pain in right knee (principal); M25.552 Pain in left hip; M25.521 Pain in right elbow; M19.071 Primary osteoarthritis, right ankle and foot | CPT/HCPCS: 73080; 73502; 73564; 73630 ==

== ENCOUNTER 2025-03-10 12:44 | Outpatient (AMB) | payer MEDICARE, SELFPAY ==
--- OUTSIDE RECORDS SUMMARY | 2025-03-10 12:47 | XMS_ITS ---
Author Name [place] FIXING MACHINE OPERATOR,MANDATE RETAIL SERVICE MERCHANDISER,FN P,CITY RECORDER, Renetta Address [address] [place] [address] Phone [phone] Organization [facility] Care Team Providers Care Magnet Valve Assembler Name Role Phone Renetta Slade Unavailable [phone] Dpt., [facility] Unavailable Unavailable Unavailable Unavailable Orellana, Mari Unavailable Unavailable JOSH DAILEY Unavailable [phone] Reason for Referral Not Available Allergies, adverse [...] mg Tab TAKE 1 TABLET BY MO RUST EVERY MORNING PRN 2022-01-02 No Data Available OneTouch Delica Plus Tsyerg83P Miscellaneous TEST BLOOD SUGAR 4 TIMES A [...] MOUTH EVERY MORNING 2024-06-27 No Data Available coin4ce Verio Flex System w/Device Kit TEST BLOOD [...] daily PRN allergy 2024-11-22 No Data Available Cetirizine 10 mg Tab TAKE 1 TABLET BY MO UT EVERY DAY 2024-11-18 No Data Available Lisinopril 10 mg Tab TAKE 1 TABLET BY MO UT EVERY MORNING 2024-05-18 2025-02-20 Bisacodyl EC 5 mg Tab delaye d rel No Data Available 2024-12-12 No Data Available Diclofenac Sodium 1 % Gel 4 grams topica lly to affected area 4 times per day PRN 2025-02-20 No Data Available Lidocaine 5 % Oint Apply 1 g topically 3 times daily as needed 2025-02-20 No Data Available Problem List Problem Status Onset Date Resolved Date Synopsis Type 2 diabetes mellitus with proliferative diabetic retinopathy with macular edema, bilateral Active 2024-02-17 N/A no report of any eye pain or vision changes ongoing monitoring and management as per [facility] specialist Type 2 diabetes mellitus with diabetic neuropathy Active 2024-10-31 N/A Rx: kerri apentin patient needs to watch for any warm, red, painful, and swollen symptoms. Elevating the lower extremities above the heart. avoid sitting for long periods. Vitamin deficiency Active 2022-06-25 N/A Vitami n B12 deficiency: cyanocobalamin (vit B-12) 100 mcg tablet TAKE 1 TABLET BY MOUTH EVERY MORNINGVit D deficiency: cholecalciferol (vitamin D3) 25 mcg (1,000 unit) tablet TAKE 1 TABLET BY MOUTH EVERY MORNINGnutritious diet for overall health and wellnesslabs and plan of care per PCP GERD (gastroesophageal reflux disease) Active 2024-02-18 N/A Rx: omeprazole D on't lie down for at least 2 to 3 hours after eating small meals, avoid fatty foods, avoid spicy food, avoid chocolate, avoided caffeinated drinks, avoid alcoholic beverages. Type 2 diabetes mellitus with hyperlipidemia Active 2022-06-25 N/A FBG 120 (10/31) outside care: A1C 7.0 ( 01/04/2024) Rx: metformin, pioglitazone, trulicity weight management, exercising regularly, eating a diet low in saturated or transfat, no smoking, and limiting alcohol intake.Rx: rosuvastatin weight management, exercising regularly, eating a diet low in saturated or transfat, no smoking, and limiting alcohol intake. Right arm pain Active 2024-03-15 N/A Acute visi t on 03/14 for right arm pain, per pt she moved it quickly and she started to have alot of pain. Started on Diclofenac gel, instructed heat/ice03/15: Follow up visit; Patient reports that the pain had decreased. She is following the instructions as indicated. Encouraged to call with any worsening sx. 10/31/2024 chronic pain always has the pain Acute sinus infection Resolved 2024-10-07 2024-10-3103/24-patient seen for acute visit. Patient is experiencing a non productive cough with nasal congestion, headache, chills, sinus pressure, and left eye pressure and drainage. She is reporting intermittent dizziness. Rx for amoxicillin, prednisone, and benzonatate sent to local pharmacy. Encouraged to call CB if no improvement 48 hrs after initiating medication. Allergies Active 2024-02-17 N/A Rx: Loratadine Patient to avoid triggers, if patient experiences exacerbations to call CB and pcp Vertigo Active 2024-02-17 N/A 11/08/2024Star t Meclizine 12.5 mg q 6 hours as needed. Change positions slowly. Recommend to follow up with PCP for further evaluation. 02/20/25:-Advised on continued use of meclizine prn for vertigo. Advised on slow, purposeful movement. Fall precautions. Reinforced use of ambulatory aid at all times (cane, walker). Encounter for other specified aftercare, Allergic reaction Resolved 2024-11-22 2025-02-20 11/22/24:I spok e with member who reports she presented to ER at [facility] on the morning of 11/18/24 after she [...] avoid tree fruits until she sees an med spa manager-Advised to set up appt with PCP to obtain referral to med spa manager-Rx for benadryl given to member and advised to carry around with her at all time-Advised that if she experiencing another reaction to a fruit like this, she must not wait- take the benadryl and go to the ER immediately-Medical records requested from [facility] Tearfulness Active 2024-11-22 N/A 11/22/24:-memb er became suddenly tearful towards end of visit. [...] Psych contingency plan sent to member via [employer] Other problems related to medical facilities and other health care Active 2024-10-31 N/A FALL CO NTINGENCY PLANMember to call for the following symptoms: Blood sugar <80 / BP <110/70 / Fall / Vertigo/ WeaknessPlanned intervention: Encourage extra fluid intake / Assess for change in mental status and provide reassurance if none (patient's Baseline is 121/58) Review importance of sitting for two to three minutes prior to standing after laying downPSYCH CONTINGENCY PLANLast updated: 11/22/2024Member to call for the following symptoms: Anxiety/ Not leaving bed/home or more withdrawn / Restlessness/ Suicidal thoughtsPlanned intervention: Contact mental health professional:/ Transfer member to 8 services/ Hydroxyzine (Vistaril) 25mg PO q6h PRN anxiety/ Remind member of breathing exercises/ Encourage member to journal feelings/ Limit extra stimulation Encounter for other specified aftercare, Status post fall, Myalgia Active 2025-02-20 N/A 02/20/25:Member p resented to [facility] ER on 02/18/2025 s/p fall.She states she was walking in her home and was beside a bookshelf that she accidentally pushed against. She states the bookshelf came falling down and she fell with it face first. She states pain was so intense she had to crawl to her phone to call her son to take her to ER. She states she did not hit head, but sustained injury to big toe of right foot, right shoulder, left hip. She reports various imaging was done which showed no fractures. She reports bruising to various parts of her body including to the areas previously mentioned. She states she was not prescribed anything in ER at discharge, but was advised to take Tylenol prn for pain management. She saw PCP on 02/15/25 for post ER follow up, but was not satisfied with the visit as PCP did not provide Malaysian translation and did not let member inform her of what happened given language barrier. She has next follow up with PCP in May 2025 for annual physical, but she is thinking of getting a new provider. Typically her son goes with her to her medical appts, but he had a medical appt the same day/time as the post ER visit on 02/15/25. She rates her pain today 7/10- worse with movement. She uses cane or walker for ambulation, but was not using it during this incident. -Continue tylenol prn. Rx for diclofenac gel, lidocaine ointment sent to pharmacy.-Advised on continued use of meclizine prn for vertigo. Advised on slow, purposeful movement. Reinforced use of ambulatory aid at all times (cane, walker). -Advised to follow up for new or worsening symptoms Encounters Encounters Type Facility Date of Service Diagnosis/Co mplaint Medication List Documented (1159F) [facility] ([place]) [...] deficiency, unspecified No Data Available [facility]20[place] Noninfective gastroenteritis and colitis, unspecified No Data Available [facility]2022 Noninfective gastroenteritis and colitis, unspecified Estab. patient 30-39min; chronic exacerbation, 2 stable chronic or 1 acute illness add add modifier 95 for video, (do not use for phone, instead use 69799-36) [facility] [place] 04/21/2023 Type 2 diabetes mellitus wit h [...] (do not use for phone, instead use 76769-67) [facility] [place]20[place] Estab. patient 30-39min; chronic exacerbation, 2 stable chronic or 1 acute illness add add modifier 95 for video, (do not use for phone, instead use 96240-15) [facility] [place] 04/21/2023 Estab. patient 30-39min; chronic exacerbation, 2 stable chronic or 1 acute illness add add modifier 95 for video, (do not use for phone, instead use 33937-31) [facility] [place] 04/21/2023 Estab. patient 30-39min; chronic exacerbation, 2 stable chronic or 1 acute illness add add modifier 95 for video, (do not use for phone, instead use 81213-70) [facility]20[place] Estab. patient 30-39min; chronic exacerbation, 2 stable chronic or 1 acute illness add add modifier 95 for video, (do not use for phone, instead use 68517-99) [facility] [place] 04/21/2023 Estab. patient 30-39min; chronic exacerbation, 2 stable chronic or 1 acute illness add add modifier 95 for video, (do not use for phone, instead use 56514-24) [facility] [place] 04/21/2023 Estab. patient 30-39min; chronic exacerbation, 2 stable chronic or 1 acute illness add add modifier 95 for video, (do not use for phone, instead use 60184-12) [facility] [place] 04/21/2023 Estab. patient 30-39min; chronic exacerbation, 2 stable chronic or 1 acute illness add add modifier 95 for video, (do not use for phone, instead use 28215-84) [facility] 04[place]20[place] Estab. patient 30-39min; chronic exacerbation, 2 stable chronic or 1 acute illness add add modifier 95 for video, (do not use for phone, instead use 37008-66) [facility] [place] 04/21/2023 Estab. patient 30-39min; chronic exacerbation, 2 stable chronic or 1 acute illness add add modifier 95 for video, (do not use for phone, instead use 20761-05) [facility]17[place]2024 Type 2 diabetes [...] (do not use for phone, instead use 55064-02) [facility]17[place] Estab. patient 30-39min; chronic exacerbation, 2 stable chronic or 1 acute illness add add modifier 95 for video, (do not use for phone, instead use 43146-11) [facility]17[place] Estab. patient 30-39min; chronic exacerbation, 2 stable chronic or 1 acute illness add add modifier 95 for video, (do not use for phone, instead use 00956-40) [facility] 02[place]17[place]20[place] Estab. patient 30-39min; chronic exacerbation, 2 stable chronic or 1 acute illness add add modifier 95 for video, (do not use for phone, instead use 54571-34) [facility] 02[place]17[place] No Data Available [facility] 03/15/2024 Pain In Right ArmOther probl ems related to medical facilities and other health care Unlisted special service; to be used for medical record reviews and reporting CPTII codes (1111F, etc) [facility]/22/2024 Other specified counseling Unlisted special service; to be used for medical record reviews and reporting CPTII codes (1111F, etc) [facility] [place] 06[place]2024 Unlisted special service; to be [...] 95 for video, modifier 93 for phone [facility]20[place] Estab. patient 20-29min; 1 stable chronic or 2 minor; add add modifier 95 for video, modifier 93 for phone [facility]31/2024 Type 2 diabetes mellitus wit [...] 93 for phone [facility] 11/22/2024 Encounter for other specifie d aftercareAllergy, unspecified, subsequent encounterOther symptoms and signs involving emotional stateOther problems related to medical facilities and other health care Estab. patient 10-29min; 1 minor problem; add add modifier 95 for video, modifier 93 for phone [facility] [place]20[place] Estab. patient 10-29min; 1 minor problem; add add modifier 95 for video, modifier 93 for [facility] [place]/22[place]20[place] Estab. patient 10-29min; 1 minor problem; add add modifier 95 for video, modifier 93 for [facility] [place] 02/20/2025 Myalgia, unspecified siteDizziness and giddinessEncounter for other specified aftercareHistory of falling Estab. patient 10-29min; 1 minor problem; add add modifier 95 for video, modifier 93 for [facility] [place] 02/20/2025 Estab. patient 10-29min; 1 minor problem; add add modifier 95 for video, modifier 93 for [facility] [place] 02/20/2025 Vital Signs Date of Collection Vitals 2022-06-25 [...] - 58.0 mm[Hg]BP Systolic - 121.0 mm[Hg] 2025-02-20 12:36:33 Pain Scale - 7.0 {sc ore} Social History Social History Social History Observation Description Effec tive Time Current Smoking Status Former smoker 2025-02-28 1 Sex Female Gender identity Woman History of [...] (do not use for phone, instead use 96270-36) [id number] 2022-06-25 No Data Available No Data Availa ble No Data Available [id number] 2022-10-29 No Data Available No Data Available No Data Available [id number] 2022-10-31 No Data Available No Data Available Estab. patient 30-39min; chronic exacerbation, 2 stable chronic or 1 acute illness add add modifier 95 for video, (do not use for phone, instead use 46263-97) 74609 2023-04-21 No Data Available No Data Availa [...] ble Advance care planning discussed and documented advance care plan or surrogate decision-maker was [...] (do not use for phone, instead use 38906-83) 05048 2024-02-17 No Data Available No Data Availa [...] No Data Avail able No Data Available [id number] 2024-03-15 No Data Available No Data Available Unlisted special service; to be used for medical record reviews and reporting CPTII codes (1111F, etc) 07884 2024-06-22 No Data Available No Data Availa ble SBP < 130 (3074F) 3074F 2024-06-22 No Data Available No Data Available DBP <80 (3078F) 3078F 2024-06-22 No Data Available No Data Available Estab. patient 10-29min; 1 minor problem; add add modifier 95 for video, modifier 93 for phone [id number] 2024-10-07 No Data Available No Data Availa [...] 95 for video, modifier 93 for phone [id number] 2024-10-31 No Data Available No Data Availa [...] ble Advance care planning discussed and documented advance care plan or surrogate decision-maker was [...] 95 for video, modifier 93 for phone [id number] 2024-11-08 No Data Available No Data Availa ble Estab. patient 10-29min; 1 minor problem; add add modifier 95 for video, modifier 93 for phone [id number] 2024-11-22 No Data Available No Data Availa ble Advance care planning discussed and documented advance care plan or surrogate decision-maker was documented in the medical record. (1123F) 1123F 2024-11-22 No Data Available No Data Availa ble Advance Care Directive Advance care planning discussion documented in the medical record (1158F) 1158F 2024-11-22 No Data Available No Data Availa ble Estab. patient 10-29min; 1 minor problem; add add modifier 95 for video, modifier 93 for phone [id number] 2025-02-20 No Data Available No Data Availa ble Pain Assessment - Pain Documented on a Pain Scale (1125F) 1125F 2025-02-20 No Data Available No Data Nemo ilable Medication List Documented (1159F) 1159F 2025-02-20 No Data Available No Data Nemo ilable Functional Status Functional Category Effective Dates Cognition [...] plan for rosemary coronel symptoms: See belowDizziness 2024-11-22 06:43:50 Encounter for other specified aftercare, Allergic reactionTearfulnessOther problems related to medical facilities and other health care 2025-02-20 12:36:33 Encounter for other specified aftercare, Status post fall, MyalgiaVertigo Plan of Care Date of Service Plans [...] 30 mg, Trulicity 0.75mg weeklyfollows with her residential sales associate Dr. Craig yearlytakes her blood sugars daily in the Am and typically range in 100-150's was seeing provider network mgr however they have left and will be [...] nothing spicy or acidic. Will send in [facility]. F/U scheduled for 10/31/22 with [facility] [...] modifier 95Advance care planning discussed and documented advance care plan or surrogate decision-maker was documented in the medical record. (1123F)Pain Assessment - Pain Documented (1125F)Continue to see PCP. Follow-up with Yenny as needed for any acute or disease education needs that may arise.managed on rosuvastatin 40 mg, metformin 1000 mg BID, Lantus 7 units, pioglitazone 30 mg, Trulicity 0.75mg weeklyfollows with her residential sales associate Dr. Craig yearlytakes her blood sugars daily in the Am and typically range in 100-150's was seeing provider network mgr however they have left and will be establishing her diabetic care with her PCP [facility] Update 04/21/23:Follows up with PCP every 3 months. Last visit 03/17/23.Follows up with [facility], next appt 05/08/23. Last A1C reported by [...] modifier 95Advance care planning discussed and documented advance care plan or surrogate decision-maker was [...] low abd pain. Please remember to call CBContinue to see PCP. Follow-up with Yenny as [...] record (1158F)Advance care planning discussed and documented advance care plan or surrogate decision-maker was [...] call for the following symptoms: Blood sugar <80 / BP <110/70 / Fall / Vertigo/ WeaknessPlanned intervention: Encourage extra fluid intake / Assess for change in mental status and provide reassurance if none (patient's Baseline is 121/58) Review importance of sitting for two to three minutes prior to standing after laying down 2024-11-08 11:01:48 Televideo 10-29min; 1 minor problem; add add modifier 95 for video, modifier 93 for phoneContinue to see PCP. Follow-up with [facility] as [...] <80 (3078F)Advance care planning discussed and documented advance care plan or surrogate decision-maker was documented in the medical record. (1123F)Advance Care Directive Advance care planning discussion documented in the medical record (1158F)Continue to see PCP. Follow-up with [facility] as needed for any acute or disease education needs that may arise 23/03.11/22/24:I spoke with member who reports she presented to ER at [facility] on the morning of 11/18/24 after she [...] avoid tree fruits until she sees an med spa manager-Advised to set up appt with PCP to obtain referral to med spa manager-Rx for benadryl given to member and advised to carry around with her at all time-Advised that if she experiencing another reaction to a fruit like this, she must not wait- take the benadryl and go to the ER immediately-[facility]11/22/24:-member became suddenly tearful towards end of visit. [...] Psych contingency plan sent to member via SMSFALL CONTINGENCY PLANMember to call for the following symptoms: Blood sugar <80 / BP <110/70 / Fall / Vertigo/ WeaknessPlanned intervention: Encourage extra fluid intake / Assess for change in mental status and provide reassurance if none (patient's Baseline is 121/58) Review importance of sitting for two to three minutes prior to standing after laying downPSYCH CONTINGENCY PLANLast updated: 11/22/2024Member to call for the following symptoms: Anxiety/ Not leaving bed/home or more withdrawn / Restlessness/ Suicidal thoughtsPlanned intervention: Contact mental health professional:/ Transfer member to [address] [place] [address]/ Hydroxyzine (Vistaril) 25mg PO q6h PRN anxiety/ Remind member of breathing exercises/ Encourage member to journal feelings/ Limit extra stimulation 2025-02-20 12:36:33 Estab. patient 10-29 min; 1 minor problem; add add modifier 95 for video, modifier 93 for phonePain Assessment - Pain Documented on a Pain Scale (1125F)Continue to see PCP. Follow-up with [facility] as needed for any acute or disease education needs that may arise.02/20/25:Member presented to [facility] ER on 02/18/2025 s/p fall.She states she was walking in her home and was beside a bookshelf that she accidentally pushed against. She states the bookshelf came falling down and she fell with it face first. She states pain was so intense she had to crawl to her phone to call her son to take her to ER. She states she did not hit head, but sustained injury to big toe of right foot, right shoulder, left hip. She reports various imaging was done which showed no fractures. She reports bruising to various parts of her body including to the areas previously mentioned. She states she was not prescribed anything in ER at discharge, but was advised to take Tylenol prn for pain management. She saw PCP on 02/15/25 for post ER follow up, but was not satisfied with the visit as PCP did not provide Malaysian translation and did not let member inform her of what happened given language barrier. She has next follow up with PCP in May 2025 for annual physical, but she is thinking of getting a new provider. Typically her son goes with her to her medical appts, but he had a medical appt the same day/time as the post ER visit on 02/15/25. She rates her pain today 7/10- worse with movement. She uses cane or walker for ambulation, but was not using it during this incident. -Continue tylenol prn. Rx for diclofenac gel, lidocaine ointment sent to pharmacy.-Advised on continued use of meclizine prn for vertigo. Advised on slow, purposeful movement. Reinforced use of ambulatory aid at all times (cane, walker). -Advised to follow up for new or worsening opsxuqsx56/11/2025Start Meclizine 12.5 mg q 6 hours as needed. Change positions slowly. Recommend to follow up with PCP for further evaluation. 02/20/25:-Advised on continued use of meclizine prn for vertigo. Advised on slow, purposeful movement. Fall precautions. Reinforced use of ambulatory aid at all times (cane, walker). Goals Date Goal 2022-06-25 Remember to check [...] appointments with your PCP and specialists. Call BRANDIE / if you have questions or concerns. Discussed how to [facility] via [facility] or [facility]. BRANDIE 24/7 phone number provided. 2024-10-31 At least 50% [...] plan, complicance, and coordinating follow up care. 2025-02-20 Continue taking medi cations as directed and keep all follow up appointments with established PCP and Specialist. 2025-02-20 At least 50% of time spent counseling patient, discussing diagnosis, treatment plan, complicance, and coordinating follow up care. Health Concerns Date Concern 2025-02-20 Patient/Guardian agr eed to visit via telehealth.Visit completed via: [ ] audio and video; [x] audio only 2025-02-20 Informed verbal cons ent was obtained from this patient to communicate and provide care using virtual and other telecommunications tools. 2025-02-20 ER Visit SummaryER v lucyt date: 02/18/25Reason for ER visit: Member presented to [facility] ER on 02/18/2025. She states she was feeling dizzy that morning. Dizziness typically aggravated with movement such as bending over. She states she was walking in her home and was beside a bookshelf that she accidentally pushed against. She states the bookshelf came falling down and she fell with it face first. She states pain was so intense she had to crawl to her phone to call her son to take her to ER. She states she did not hit head, but sustained injury to big toe of right foot, right shoulder, left hip. She reports various imaging was done which showed no fractures. She reports bruising to various parts of her body including to the areas previously mentioned. She states she was not prescribed anything in ER at discharge, but was advised to take Tylenol prn for pain management. She saw PCP on 02/15/25 for post ER follow up, but was not satisfied with the visit as PCP did not provide Malaysian translation and did not let member inform her of what happened given language barrier. She has next follow up with PCP in May 2025 for annual physical, but she is thinking of getting a new provider. Typically her son goes with her to her medical appts, but he had a medical appt the same day/time as the post ER visit on 02/15/25. She rates her pain today 7/10- worse with movement. She uses cane or walker for ambulation, but was not using it during this incident.Current issues/current symptoms/outstanding follow-up needs: Member in pain. Tylenol providing mild reliefPCP Follow-Up: She saw PCP on 02/15/25 for post ER follow up, but was not satisfied with the visit as PCP did not provide Malaysian translation and did not let member inform her of what happened given language barrier. She has next follow up with PCP in May 2025 for annual physical, but she is thinking of getting a new provider.
--- OUTSIDE RECORDS SUMMARY | 2025-03-10 12:47 | XMS_ITS | Patient Health Record ---
Author Organization [facility] Address [address] [place] [address] Care Team Providers Care Director Of Purchasing Name Role Phone Mustapha Phelps MD Primary Care Provider Jorge Reed [phone] Allergies Allergen (clinical drug ingredient) Drug/Non Drug Allergy documented on EMR Reaction Allergy Type Onset Date Status IVP Dye (uncoded) Unknown Allergy Ac tive Reason For Referral No Information Medications Medication SIG (Take, Route, Frequency, Duration) Notes Start Date End Date Status Lantus 100 UNIT/ML Subcutaneous Active Aspir-81 81mg Active metFORMIN HCl 500mg Active NovoLOG FlexPen 100 UNIT/ML Subcutaneous Active Lisinopril 10 MG Orally Act elizabeth Crestor 20mg Active Omeprazole 20mg Acti ve Loratadine 10 MG 1 tablet Orally Once a day Active Ferrous Sulfate 325 (65 Fe) MG 1 tablet Orally Once a day Active MiraLax Miralax 1 capful in 8 ounces of water qd-bid for constipation Orally once or twice a day as needed for constipation for 30 days 06/24/2011 Not-Taking Problems Problem Type SNOMED Code ICD Code Onset Dates Problem Status W/U Status Risk Notes Problem [id number] Gastroesophageal reflux disease without esophagitis (K21.9) Active confirmed Problem [id number] Other iron deficiency anemia (D50.8) Active confirmed Plan Of Treatment Future Test Test Name Order Date UPPER GI ENDOSCOPY 11/22/2014 COLONOSCOPY 11/22/2014 Insurance Providers Payer Name Payer Address Payer Phone Subscriber Number Group Number Insured Name Patient Relationship to Insured Coverage Start Date Coverage End Date [facility] [address] [address] [place] [address] [phone] [id number] MANISH YOO Self - patient is the insured Medical (General) History Medical History History ICD Code she had an upper endoscopy i n 2005 with the finding of only a hiatal hernia and a colonoscopy in 2005 with removal of tubular adenomas diabetic neuropathy GERD-she had an upper endosc opy in 2005 with the finding of a small to moderate-sized hiatal hernia, but without any esophagitis nor Jaramillo's esophagus hypertension she denies any history of [place], stroke, rubina ng disease, nor kidney disease IDDM She had a followup surveilla nce colonoscopy in July 2011 with removal of small tubular adenomas anemia-labs in July 2014 showed he noted 0.3, iron 29, iron saturation of 7%, and a ferritin of only 5--her B12 and folate levels were normal EGD in 01/2015-small HH, normal duodenal biopsies Negative colonoscopy in 02/17 15--neg. except diverticulosis and internal hemorrhoids Surgical History Surgery Date(Month/Year) cholecystectomy complete hysterectomy carpal tunnel surgery tonsillectomy
--- OUTSIDE RECORDS SUMMARY | 2025-03-10 12:47 | XMS_ITS | Clinical Summary ---
Author Organization [address] Address [address] [place] [phone] Phone Care Team Providers Care Candy Supervisor Name Role Phone Harshad Castle MD Primary Care Provider [phone] Allergies Active Allergy Reactions Criticality Noted Date [...] 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 NPDR (nonproliferative diabe tic retinopathy) ([facility] V24, [facility] V28) 04/21/2017 Type 2 diabetes mellitus wit h eye manifestations ([facility] V24, [facility] V28) 04/21/2017 Overview (06/01/2024): Sees Dr. Donna ritter at [facility] Diabetic neuropathy ([facility] V24, [facility] V28) 0 04/21/2017 BPPV (benign paroxysmal positional vertigo) 10/01 Obesity (BMI 30.0-34.9) 07/08/2016 Diverticulosis 06/18/2015 GERD (gastroesophageal reflux disease) 5 HTN (hypertension) 06/18/2015 Hyperlipidemia 06/18/2015 Osteoarthritis, knee 06/18/2015 Overview (06/01/2024): Bilateral Positive PPD 06/18/2015 Tubular adenoma of colon 06/18/2015 Type 2 diabetes mellitus wit h cataract ([facility] V24, [facility] V28) 06/18/2015 Type 2 diabetes mellitus wit h neurological manifestations, controlled ([facility] V24, [facility] V28) 06/18/2015 Overview (06/01/2024): Sees Dr. Donna ritter at [facility] Encounters Date Type Department Care Team Description 01/17/2025 10:00 AM EDT Office Visit Orthopedic Surgery - [place] [address] [place] [phone] Esteban Donato, CAROLYN Controlled type 2 diabetes with neuropathy ([facility] V24, [facility] V28) (Primary Dx); Arthritis of [...] Type 2 diabetes mellitus wit h cataract ([facility] V24, [facility] V28) 06/18/2015 DX:Type 2 diabetes mellitus with cataract (HCC) BPPV (benign paroxysmal posi tional vertigo) 10/14/2016 DX:BPPV (benign paroxysmal p ositional vertigo) Type 2 diabetes mellitus wit h neurological manifestations, controlled ([facility] V24, [facility] V28) 06/18/2015 DX:Type 2 diabet es mellitus with neurological manifestations, controlled ([facility]) Type 2 diabetes mellitus wit h eye manifestations ([facility] V24, [facility] V28) 04/21/2017 DX:Type 2 diabetes mellitus with eye manifestations ([facility]) Diabetic retinopathy ([facility] V24, [facility] V28) 04/21/2017 DX:Diabetic retinopathy ([facility] ) Diabetic neuropathy ([facility] V24, [facility] V28) 04/21/2017 DX:Diabetic neuropathy ([facility]) Tinnitus aurium, 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 DX:Ti [...] AM EDT Office Visit Orthopedic Surgery - [place] [address] [facility] [address] [place] [address] Esteban Donato, DPM [address] [facility] [address] [place] [address] Health Maintenance Due Date Last Done Comments [...] Annual Urine Albumin-Creatinine Ratio (uACR) 01/03/2025 01/04/2024 Influenza Vaccine (#1) 2025 , 05/11/2023, 05/11/2023, Additional history exists Cholesterol Screening (Lipid Panel) 01/03/2029 01/04/2024, 01/04/2024 Osteoporosis Screening (Bone Density Screening) 06/18/2033 06/18/2023, 05/07/2017 Hepatitis C Screening Completed 03/15/2015 Pneumococcal Vaccine: 50+ Years Completed 08/01/2021, 07/08/2016 Breast Cancer Screening Discontinued 06/18/2023 HIB Vaccines Aged Out No longer eligi [...] (World Health Organization Fracture Risk Assessment) [facility] Department of Internal Medicine recommends [...] (World Health Organization Fracture Risk Assessment) [facility] Department of Internal Medicine recommendsusing [...] fracture risk by FRAX. 3 us Liane Alison Hutton MD IMG DXA PROCEDURES Final Result [...] Result * Hepatitis C Screening (03/15/2015) Pathologist [facility] Hepatitis C Screening abstarcted Historical Provider HEALTH MAINTENANCE Final Result from Last 3 Months or Most Recently Relevant to Health Maintenance Insurance [facility] MEDICAID - [place] Care Teams Candy Supervisor Relationship Specialty Start Date End Date Harshad Castle MD [address] [place] [address] PCP - General Internal Medicine 07/08/24
--- NOTE | 2025-03-10 12:48 | MHC.PC.OV ---
Vital Signs 03/10/25 12:49 Height 5 ft 1 in Weight 137 lb BMI 25.9 Blood Pressure Location Lt brachial Position Sitting Respiration 16 Pulse 96 Pulse Source Pulse Oximeter Pulse Oximetry (%) 96 Oxygen Delivery Method Room Air Intake Visit Reasons: contusion of toe f/u Volunteer Services Assistant Required: Yes Accompanied by: Friend Allergies strawberry Allergy (Severe, Verified 03/10/25 12:53) Anaphylaxis Iodinated Contrast Media (IV DYE, IODINE CONTAINING) Allergy (Intermediate, Verified 03/10/25 12:53) DYSPNEA apple Allergy (Verified 03/10/25 12:53) Facial Swelling Medication List - Last Reconciled 03/10/25 by Harshad Castle MD alcohol swabs (Alcohol Pads) 1 pad topical BID aspirin (Adult Low Dose Aspirin) 81 mg PO DAILY bisacodyl (Dulcolax (bisacodyl)) 10 mg (2 x 5 mg) PO BEDTIME blood sugar diagnostic ([employer] Ver[employer] test strips) Check blood sugar twice daily blood-glucose meter ([employer] Verio Flex Meter) Check blood sugar twice daily cetirizine (Zyrtec) 10 mg PO DAILY cyanocobalamin (vitamin B-12) 100 mcg PO .qod 90 days dulaglutide (Trulicity) 0.75 mg (0.5 mL) subcut QWEEK 90 days fluticasone propionate 50 mcg/actuation (Flonase Allergy Relief) 1 spray intranasal DAILY gabapentin 100 mg PO .qhs lancets ([employer] Delica Plus Lancet) Check blood sugar twice daily. lisinopril 10 mg PO DAILY 90 days metformin ER 1,000 mg (2 x 500 mg) PO BID omeprazole 20 mg PO DAILY pen needle, diabetic (BD Jennifer 2nd Gen Pen Needle) Once a day pioglitazone 30 mg PO DAILY 90 days rosuvastatin 40 mg PO DAILY 90 days Tobacco use date assessed: 11/15/24 Fall risk assessment: No Falls in past year Last assessed Fall Risk: 03/10/25 Dental Screening Dental Screen Date: 11/15/24 HPI contusion of toe f/u HPI Details History - The patient is a 79-year-old female presenting for follow-up after an emergency room visit due to left hip and right toe pain following a fall on February 18. - The fall occurred while the patient was attempting to move large pieces of furniture and she lost her balance. There was no head trauma or loss of consciousness reported. - The patient's left hip was initially painful, and although it remains sore, the pain has decreased in severity since the incident. - Right toe pain persists with throbbing sensations, although it has improved compared to the initial visit. The patient describes the healing process, noting sensitivity to touch in the injured area. - The patient also reports a history of chronic back pain. - X-rays previously performed at the ER showed no acute fractures of the hip or toe, but arthritis was noted in the foot. Similarly, an x-ray of the right elbow showed no fractures. Medical History: - Diabetes - Hypertension - Arthritis - Chronic back pain Social History: - Activity level affected by chronic back pain and arthritis. Diagnostic Results: - Tests and Diagnostics: - Hip X-ray: No acute fractures - Right toe X-ray: No acute fractures; arthritis present - Right elbow X-ray: No fractures - Hba1c is 6.9 today Problem List - Diabetes - Essential Hypertension - Arthritis - Chronic back pain - Persistent left hip pain post-fall - Right toe injury with bruising Patient Instructions - Avoid moving large or heavy furniture to prevent further injury. - Monitor healing of the right toe, acknowledge that the bruise may take a couple of months to resolve. - Maintain current diabetes management as blood sugar levels are good. Review of Systems - General: No fever no chills - Neurological: No headaches no dizziness - Ear nose throat: No sore throat no hearing difficulty no ear pain - Cardiovascular: No syncope, no chest pain, no palpitations - Gastrointestinal: No nausea vomiting or diarrhea - Endocrine: No polyuria polydipsia no heat intolerance - Genitourinary: No dysuria , no blood in urine Physical Exam General: No acute distress HEENT: No acute findings Neck: Supple Respiratory system: Able to talk in full sentences, no audible wheeze Gastrointestinal: No pain Extremities: , right toe throbbing pain, no new findings in the knee except arthritis, toe exam is benign except where she has small black dot close to nail, from injury POST PARTUM NURSE: Alert awake oriented x3 motor sensory intact Skin: Normal turgor, right toe with a bruise and a black dot from injury [facility] Medical History GERD (gastroesophageal reflux disease) Diabetic nephropathy associated with type 2 diabetes mellitus Diabetic polyneuropathy associated with type 2 diabetes mellitus Diabetes type 2, controlled Proliferative diabetic retinopathy detention (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 Diabetes type 2, uncontrolled Dyslipidemia Hypertension Surgical History Hx of cholecystectomy Hx of hysterectomy Hx of carpal tunnel repair Hx of tonsillectomy Family History Son Family history of thyroid problem Mother No problems noted. Father No problems noted. Social History Household Members: Spouse Housing: Apartment Alcohol intake: never Patient Tobacco Use Status: Former Tobacco user e-Cigarette/Vaping Use: Never Used Current occupational status: unemployed Cognitive needs: No Hearing needs: Yes Vision needs: Yes Questionnaire Thrive Questionnaire Date Thrive assessed: 03/10/25 I am a: Patient What is your living situation today?: I have a steady place to live Within the past 12 months, did the food you bought not last and you didn't have the money to get more?: Never true Within the past 12 months, did you worry whether your food would run out before you got money to buy more?: Never true Do you have trouble paying for medicines?: No Do you have trouble getting transportation to medical appointments?: No Do you have trouble paying your heating and electricity bill?: No Do you have trouble taking care of your child, family member or friend?: No Do you have trouble with day-to-day activities such as bathing, preparing meals, shopping, managing finances, etc.?: Yes Are you currently unemployed and looking for a job?: No Are you interested in more education?: No Please select the resources that you would like help with: None Currently or been in a relationship where the following occur: No concerns reported THRIVE Score: 0 JOEY-7 AMB Questionnaire JOEY-7 Date JOEY - 7 assessed: 11/15/24 Source: Developed by Drs. Jorge Guzman, Madina Hinojosa, Luke Browning and colleagues, with an educational lissy from [employer]. Physical exam (Primary Care) Vital Signs: Last Vital Signs Pulse 96 03/10/25 12:49 Resp 16 03/10/25 12:49 Pulse Ox 96 03/10/25 12:49 Oxygen Delivery Method Room Air 03/10/25 12:49 BMI result Body Mass Index 25.9 Tobacco/Smoking Status: Tobacco use Status Tobacco use date assessed 11/15/24 03/10/25 12:52 Patient Tobacco Use Status Former Tobacco user 03/10/25 12:52 e-Cigarette/Vaping Use Never Used 03/10/25 12:52 Thrive Assessment: Date of Thrive Assessment Date Thrive assessed 03/10/25 03/10/25 12:52 Currently or been in a relationship where the following occur: No concerns reported Coding Level of Care Code Est Pt Level 4 (53004) Diagnoses Seen in emergency room Z76.89 Injury of toe on right foot, subsequent encounter S99.921D Encounter type: subsequent encounter Hip pain, left M25.552 Diabetes type 2, controlled E11.9 Assessment & Plan Assessment & Plan (1) Seen in emergency room: Code(s): Z76.89 - Persons encountering health services in other specified circumstances Category: Medical (2) Injury of toe on right foot: Code(s): S99.921A - Unspecified injury of right foot, initial encounter Category: Medical Qualifiers: Encounter type: subsequent encounter Qualified Code(s): S99.921D - Unspecified injury of right foot, subsequent encounter (3) Hip pain, left: Code(s): M25.552 - Pain in left hip Category: Medical (4) Diabetes type 2, controlled: Code(s): E11.9 - Type 2 diabetes mellitus without complications Category: Medical Plan History - The patient is a 79-year-old female presenting for follow-up after an emergency room visit due to left hip and right toe pain following a fall on February 18. - The fall occurred while the patient was attempting to move large pieces of furniture and she lost her balance. There was no head trauma or loss of consciousness reported. - The patient's left hip was initially painful, and although it remains sore, the pain has decreased in severity since the incident. - Right toe pain persists with throbbing sensations, although it has improved compared to the initial visit. The patient describes the healing process, noting sensitivity to touch in the injured area. - The patient also reports a history of chronic back pain. - X-rays previously performed at the ER showed no acute fractures of the hip or toe, but arthritis was noted in the foot. Similarly, an x-ray of the right elbow showed no fractures. Medical History: - Diabetes - Hypertension - Arthritis - Chronic back pain Social History: - Activity level affected by chronic back pain and arthritis. Diagnostic Results: - Tests and Diagnostics: - Hip X-ray: No acute fractures - Right toe X-ray: No acute fractures; arthritis present - Right elbow X-ray: No fractures - Hba1c is 6.9 today Problem List - Diabetes - Essential Hypertension - Arthritis - Chronic back pain - Persistent left hip pain post-fall - Right toe injury with bruising Patient Instructions - Avoid moving large or heavy furniture to prevent further injury. - Monitor healing of the right toe, acknowledge that the bruise may take a couple of months to resolve. - Maintain current diabetes management as blood sugar levels are good.
[2025-03-10 12:49] VITALS: PULSE 96; RESP 16; O2SAT 96; BMI 25.9
== END 2025-03-10 13:07 | disposition home or self-care (01) ==
LOC: HO.HMCC 12:45
PROVIDERS: PCP Internal Medicine; Visit Provider Internal Medicine
DX: Z76.89 Persons encountering health services in other specified circumstances (principal); S99.921D Unspecified injury of right foot, subsequent encounter; M25.552 Pain in left hip; E11.9 Type 2 diabetes mellitus without complications; Z13.9 Encounter for screening, unspecified

== ENCOUNTER → 2025-03-10 12:44 | Outpatient (BNVA) | payer MEDICARE, SELFPAY | PROVIDERS: PCP Internal Medicine; Visit Provider Internal Medicine | DX: Z76.89 Persons encountering health services in other specified circumstances (principal); S99.921D Unspecified injury of right foot, subsequent encounter; E11.9 Type 2 diabetes mellitus without complications; M25.552 Pain in left hip | CPT/HCPCS: 83036; 99212 ==

== ENCOUNTER 2025-05-18 10:10 | Outpatient (REF) | payer OTHER, SELFPAY ==
--- OUTSIDE RECORDS SUMMARY | 2025-05-18 12:10 | XMS_ITS | Clinical Summary ---
Author Organization [address] Address [address] [place] [phone] Phone Care Team Providers Care Outpatient Clerk Name Role Phone Harshad Castle MD Primary Care Provider [phone] Allergies Active Allergy Reactions Criticality Noted Date [...] 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 NPDR (nonproliferative diabe tic retinopathy) ([facility] V24, [facility] V28) 04/21/2017 Type 2 diabetes mellitus wit h eye manifestations ([facility] V24, [facility] V28) 04/21/2017 Overview (06/01/2024): Sees Dr. Donna ritter at [facility] Diabetic neuropathy ([facility] V24, [facility] V28) 0 04/21/2017 BPPV (benign paroxysmal positional vertigo) 10/01 Obesity (BMI 30.0-34.9) 07/08/2016 Diverticulosis 06/18/2015 GERD (gastroesophageal reflux disease) 5 HTN (hypertension) 06/18/2015 Hyperlipidemia 06/18/2015 Osteoarthritis, knee 06/18/2015 Overview (06/01/2024): Bilateral Positive PPD 06/18/2015 Tubular adenoma of colon 06/18/2015 Type 2 diabetes mellitus wit h cataract ([facility] V24, [facility] V28) 06/18/2015 Type 2 diabetes mellitus wit h neurological manifestations, controlled ([facility] V24, [facility] V28) 06/18/2015 Overview (06/01/2024): Sees Dr. Donna ritter at [facility] Encounters Date Type Department Care Team Description 03/22/2025 10:30 AM EDT Office Visit Orthopedic Surgery - [place] [address] [place] [phone] Esteban Donato, CAROLYN Controlled type 2 diabetes with neuropathy ([facility] V24, [facility] V28) (Primary Dx); Arthritis of both feet; [...] Type 2 diabetes mellitus wit h cataract ([facility] V24, [facility] V28) 06/18/2015 DX:Type 2 diabetes mellitus with cataract (HCC) BPPV (benign paroxysmal posi tional vertigo) 10/14/2016 DX:BPPV (benign paroxysmal p ositional vertigo) Type 2 diabetes mellitus wit h neurological manifestations, controlled ([facility] V24, [facility] V28) 06/18/2015 DX:Type 2 diabet es mellitus with neurological manifestations, controlled ([facility]) Type 2 diabetes mellitus wit h eye manifestations ([facility] V24, [facility] V28) 04/21/2017 DX:Type 2 diabetes mellitus with eye manifestations ([facility]) Diabetic retinopathy ([facility] V24, [facility] V28) 04/21/2017 DX:Diabetic retinopathy ([facility] ) Diabetic neuropathy ([facility] V24, [facility] V28) 04/21/2017 DX:Diabetic neuropathy ([facility]) Tinnitus aurium, 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 DX:Ti nnitus aurium, [...] Care Team (Late st Contact Info) Description 05/24/2025 10:15 AM EDT Office Visit Orthopedic Surgery - [place] [address] [facility] [address] [place] [phone] Esteban Donato, DPM [address] [facility] [address] [place] [address] Health Maintenance Due Date Last Done Comments Diabetes: Annual Retina Eye Exam 1957 DTaP,Tdap,and Td Vaccines (1 - Tdap) 1966 Zoster Vaccines (1 of 2) 1997 Falls Risk Assessment 08/09/2022 Social Influencers of Health Screening 08/09/2022 RSV Immunization Adult Patients (1 - 1-dose 75+ series) 2022 Diabetes: Annual GFR (Glomerular Filtration Rate) 11/06/2023 11/05/2022 Hypertension/CHF/CAD Annual BMP Blood Test 11/06/2023 11/05/2022 Diabetes: Annual Foot Exam 03/03/2024 03/03/2023 Diabetes: Blood Sugar Control Test (HGBA1C) 07/06/2024 01/04/2024, 01/04/2024 Depression Screening 08/31/2024 Diabetes: Annual Urine Albumin-Creatinine Ratio (uACR) 01/03/2025 01/04/2024 COVID-19 Vaccine ( season) 2025 09/24/2021, 01/16/2021, 12/19/2020 Influenza Vaccine (#1) 2025 , 05/11/2023, 05/11/2023, [...] (World Health Organization Fracture Risk Assessment) [facility] Department of Internal Medicine recommends [...] (World Health Organization Fracture Risk Assessment) [facility] Department of Internal Medicine recommendsusing [...] of fracture risk by FRAX. 3 us Linae Alison Hutton MD IMG DXA PROCEDURES Final [...] Result * Hepatitis C Screening (03/15/2015) Pathologist [facility] Hepatitis C Screening abstarcted Historical Provider HEALTH MAINTENANCE Final Result from Last 3 Months or Most Recently Relevant to Health Maintenance Insurance [facility] MEDICAID - [place] Care Teams Outpatient Clerk Relationship Specialty Start Date End Date Harshad Castle MD [address] [place] [phone] PCP - General Internal Medicine 07/08/24
[2025-05-18 13:02] LABS: MANUAL DIFF FLAG NO
[2025-05-18 13:14] LABS: Hematocrit 31.9 % (37.0-47.0); Hemoglobin 9.9 g/dl (12.0-16.0); Imm Gran Abs Auto 0.01 X10*3/uL (0.00-0.03); Imm Gran Pct Auto 0.3 % (0.0-0.4); Lymphocytes Absolute Auto 1.2 X10*3/uL (1.2-4.9); Mean Corpuscular HGB Conc 31.0 g/dl (31.0-35.0); Mean Corpuscular Hemoglobin 28.1 pg (27.0-33.0); Mean Corpuscular Volume 90.6 fL (80.0-98.0); NRBC Abs Auto 0.000 X10*3/uL (0.0-0.012); NRBC Pct Auto 0.0 /100WBC (0.0-0.2); Platelet Count 131 X10*3/uL (160-400); Red Blood Count 3.52 X10*6/uL (4.20-5.50); White Blood Count 3.8 X10*3/uL (4.8-10.8)
[2025-05-18 13:18] LABS: Hemoglobin A1C 156.5086 umol/L; Total Hemoglobin (HGBA1C) 2724.2778 umol/L
[2025-05-18 13:36] LABS: Alanine Aminotransferase 9 U/L (0-31); Albumin Level 4.2 g/dL (3.5-5.0); Alkaline Phosphatase 64 U/L (39-117); Anion Gap 13 (12-20); Aspartate Amino Transferase 18 U/L (5-31); Blood Urea Nitrogen 17 mg/dL (9-16); Calcium 9.3 mg/dL (8.4-10.2); Carbon Dioxide 31 mmol/L (22-29); Chloride 102 mmol/L (96-108); Estimated Glomerular Filt Rate > 60; Potassium 4.6 mmol/L (3.3-5.1); Sodium 141 mmol/L (135-145); Total Protein 7.0 g/dL (6.5-8.0)
[2025-05-18 13:51] LABS: Vitamin B12 713 pg/mL (200-900)
[2025-05-18 14:27] LABS: Microalbum/Creatinine Ratio Ur 15.8 ug/mg cr (<30)
[2025-05-23 16:29] LABS: Vitamin D 25-OH, D2 <4 ng/mL; Vitamin D 25-OH, D3 18 ng/mL; Vitamin D 25-OH, Total 18 ng/mL (30-100)
== END 2025-05-18 10:11 | disposition home or self-care (01) ==
LOC: HO.HMGCLDS 10:10
PROVIDERS: PCP Internal Medicine; Visit Provider Internal Medicine
DX: E11.3553 Type 2 diabetes mellitus with stable proliferative diabetic retinopathy, bilateral (principal); K21.9 Gastro-esophageal reflux disease without esophagitis; E11.21 Type 2 diabetes mellitus with diabetic nephropathy; E11.42 Type 2 diabetes mellitus with diabetic polyneuropathy; Z79.4 Long term (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; R80.9 Proteinuria, unspecified; I10 Essential (primary) hypertension; E78.5 Hyperlipidemia, unspecified
CPT/HCPCS: 36415; 80053; 82043; 82306; 82570; 82607; 83036; 83721; 85025

== ENCOUNTER 2025-05-26 10:56 | Outpatient (AMB) | payer MEDICARE, SELFPAY ==
--- OUTSIDE RECORDS SUMMARY | 2025-05-24 10:15 | XMS_ITS | Encounter Summary ---
Author Organization [facility] Address [address] [place] [address] Care Team Providers Care Surveillance Manager Name Role Phone Harshad Castle MD Primary Care Provider [phone] Reason for Visit * Reason Comments DM Foot Care Controlled type 2 di abetes with neuropathy (CMS/[facility]ERLY [facility] V24, CMS/[facility]ER[facility] V28)Arthritis of both feetPain in toes of both feetHammertoes of both feetDermatophytosis, nail Encounter Details Date Type Department Care Team (Late st Contact Info) Description 05/24/2025 10:15 AM EDT Office Visit Orthopedic Surgery - [place] [address] [address] [facility] [address] [place] [phone] Esteban Donato DPM 175 [facility] [address] [place] [address] Controlled type 2 diabetes with neuropathy (CMS/FORMERLY [facility] V24, CMS/[facility]ER[facility] V28) (Primary Dx); Arthritis of both feet; [...] on file documented as of this encounter Ordered Prescriptions Prescription Sig Dispense Quantity Refills Last Filled Start Date End Date diclofenac (Voltaren Arthritis Pain) 1 % topical gel Apply 4 g topically 2 (two) times a day. 240 g 1 05/24/2025 documented in this encounter Progress Notes * Esteban Donato DPM - 05/24/2025 10:15 AM EDT Referring MD: Tin Last PCP visit: 01/26/2025 IDENTIFIER: Romain Alexander is a 79 y.o. year old female who presents for consultation. CC: Bilateral foot pain HPI: Returns office for multiple forefoot deformities Patient notes she continues to have some tingling numbness and sharp shooting pain specifically in the left leg Patient denies any recent complications associated with diabetes Patient notes that her nails are causing some pain at the distal aspect of the toes Patient notes that she has had some swelling to the left ankle as well Patient relates that she has multiple calluses to the plantar heel bilaterally Patient with minimal other pedal complaints at this time. Patient's FBS this AM was 142 Recent A1C is %. 7.0 ROS: GENERAL: Pt denies nausea, fever, vomiting, [...] HTN (hypertension) Hyperlipidemia NPDR (nonproliferative diabetic retinopathy) ([facility] V24, [facility] V28) Obesity (BMI 30.0-34.9) Osteoarthritis, knee Positive PPD Tinnitus aurium, bilateral Tubular adenoma of colon Type 2 diabetes mellitus with cataract ([facility] V24, CMS/[facility]ER[facility] V28) Type 2 diabetes mellitus with eye manifestations ([facility] V24, [facility] V28) Diabetic neuropathy ([facility] V24, [facility] V28) Type 2 diabetes mellitus with neurological manifestations, controlled ([facility] V24, CMS/[facility] V28) SOCIAL HISTORY: Social History Tobacco Use Smoking status: Never Smokeless tobacco: Never Substance Use Topics Alcohol use: Not on file ACTIVE MEDICATIONS: Outpatient Medications Marked as Taking for the 05/24/25 encounter (Office Visit) with Esteban Donato DPM Medication Sig Dispense Refill alcohol swabs (Alcohol Prep Pads) pads, medicated Apply 1 Each topically 5 times daily. aspirin 81 mg EC tablet Take 1 Tablet by mouth at bedtime. blood sugar diagnostic (iScreen Visionuch Verio test strips) test strip TEST BLOOD [...] time each day. ALLERGIES: @ALL@ PHYSICAL EXAM: There were no vitals taken for this visit. PODIATRIC EXAMINATION: GENERAL: Patient appears well nourished, with NAD. VASCULAR: Dorsalis pedis pulses are 2/4 bilaterally and Posterior tibial pulses are 0/4 bilaterally. Capillary filling time within normal limits the digits. No pallor on elevation or rubor on dependency. Positive hair growth. Some varicosities. Denies rest pain or claudication pain. NEUROLOGICAL: Sharp/dull sensation intact, protective sensation diminished on [place]. Multiple peripheral neuropathies bilaterally. ORTHOPEDIC: Good muscle strength 5/5 of all flexors and extensors. Dorsi flexion of ankle ,10 degrees, plantar flexion WNL. No muscle atrophy. Arthritic changes of the midfoot bilaterally with dorsalexostoses that are palpable. Rigid contractures of digits 2 through 5. Pain along the anterior aspect of the left leg extending through the ankle with minimal swelling DERMATOLOGICAL:.No masses or skin lesions noted. Normal skin temperature, normal skin turgor. Nailsare elongated dystrophic discolored x 10 with subungual debris BIOMECHANICS: STJ ROM wnl, MTJ ROM wnl, 1st MPJ ROM wnl. IMPRESSION: 1. Controlled type 2 diabetes with neuropathy (CMS/HCC V24, CMS/HCC V28) 2. Arthritis of both feet 3. Pain in toes of both feet 4. Hammertoes of both feet 5. Dermatophytosis, nail PLAN: Pt was seen and examined, history reviewed. Patient is educated on importance of tight glucose control system his chances for ulceration and infection Patient was educated on the arthritic changes both in the forefoot and the midfoot and was instructed to use topical analgesic in order to limit the pain associated with flareups. Patient was given aprescription for Voltaren gel and instructed to use it up to 3 times daily for pain Patient was educated that she has increased curvature to her digits and needs to offload the digitsfrom getting preulcerative lesions. Patient instructed to start with a hammertoe crutch Nail debridement performed to nails 1-5 bilateral [...] Care Team (Late st Contact Info) Description 07/26/2025 11:00 AM EST Office Visit Orthopedic Surgery - [place] [address] [phone] Esteban Donato DPM [address] [address] documented as of this encounter Visit Diagnoses Diagnosis Controlled type 2 diabetes with neuropathy ([facility] V24, [facility] V28)- Primary Type II or unspecified type diabetes mellitus with neurological manifestations, not stated as uncontrolled Arthritis of both feet Pain in toes of both feet Hammertoes of both feet Dermatophytosis, nail Dermatophytosis of nail documented in this encounter Care Teams Surveillance Manager Relationship Specialty Start Date End Date Harshad Castle MD [address] [place] [address] PCP - General Internal Medicine 07/08/24 documented as of this encounter
--- NOTE | 2025-05-26 11:00 | MHC.PC.OV ---
Vital Signs 05/26/25 11:01 Height 5 ft 1 in Weight 140 lb BMI 26.4 BP 122/68 Blood Pressure Location Lt brachial Position Sitting Pulse 96 Pulse Source Pulse Oximeter Pulse Oximetry (%) 96 Oxygen Delivery Method Room Air Intake Visit Reasons: PE - see comments Animal Nutritionist Required: No Accompanied by: Self / Same As Patient Allergies strawberry Allergy (Severe, Verified 05/26/25 11:01) Anaphylaxis Iodinated Contrast Media (IV DYE, IODINE CONTAINING) Allergy (Intermediate, Verified 05/26/25 11:01) DYSPNEA apple Allergy (Verified 05/26/25 11:01) Facial Swelling Medication List - Last Reconciled 05/26/25 by Harshad Castle MD Accu-Chek Guide Glucose Meter (blood-glucose meter) Check blood sugar 2 times a day as directed NS Accu-Chek Soft Dev Lancets (lancing device with lancets) Check blood glucose 2 times a day as directed NS alcohol swabs (Alcohol Pads) 1 pad topical BID aspirin (Adult Low Dose Aspirin) 81 mg PO DAILY bisacodyl (Dulcolax (bisacodyl)) 10 mg (2 x 5 mg) PO BEDTIME blood sugar diagnostic (Accu-Chek Guide test strips) Check blood sugar 2 times a day as directed cetirizine (Zyrtec) 10 mg PO DAILY cyanocobalamin (vitamin B-12) 100 mcg PO .qod 90 days dulaglutide (Trulicity) 0.75 mg (0.5 mL) subcut QWEEK 90 days fluticasone propionate 50 mcg/actuation (Flonase Allergy Relief) 1 spray intranasal DAILY gabapentin 100 mg PO .qhs lancets (OneTouch Delica Plus Lancet) Check blood sugar twice daily. lisinopril 10 mg PO DAILY 90 days metformin ER 1,000 mg (2 x 500 mg) PO BID omeprazole 20 mg PO DAILY pen needle, diabetic (BD Jennifer 2nd Gen Pen Needle) Once a day pioglitazone 30 mg PO DAILY 90 days rosuvastatin 40 mg PO DAILY 90 days Tobacco use date assessed: 11/15/24 Fall risk assessment: No Falls in past year Last assessed Fall Risk: 05/26/25 Dental Screening Dental Screen Date: 11/15/24 HPI PE - see comments HPI Details Physical exam appointment The patient is a 79-year-old female presenting with left lower back pain, anemia, vitamin D deficiency, and diabetes management Osteoarthritis of the left hip: - An X-ray performed in January revealed significant arthritis in the left hip. - manageable with Tylenol Anemia: - The patient's hemoglobin levels have decreased from 11.9 in 2019 to 9.9 recently. - She shows no overt signs of bleeding, implying potential microscopic bleeding over time. Vitamin D deficiency: - The patient's vitamin D levels were noted to be very low during recent lab evaluations. Diabetes: - Hemoglobin A1c is recorded at 7.4, indicating hyperglycemia. Patient is diabetic and is on Trulicity and long-acting insulin along with metformin 1 g b.i.d. and pioglitazone 30 mg daily Lipid disorder: Treated with a rosuvastatin 40 mg Blood pressure is stable with lisinopril 10 mg Diabetic neuropathy treated with gabapentin 100 mg as needed Preventive care: Mammograms from [facility] Patient saw gastroenterology early this year for colonoscopy screening her last colonoscopy was in 2014, repeat colonoscopy will be scheduled going forward Patient Instructions - Continue taking Vitamin D supplements daily. - Continue gabapentin for neuropathy at night and Tylenol as prescribed. Osteoarthritis joints - follow up with Hematology for anemia, referral created - continue medications - small dose of muscle relaxer sent for back pain to be taken only at night - Schedule follow-ups in three months and an annual physical exam. Review of Systems - General: No fever no chills - Neurological: No headaches no dizziness - Ear nose throat: No sore throat no hearing difficulty no ear pain - Cardiovascular: No syncope, no chest pain, no palpitations - Gastrointestinal: No nausea vomiting or diarrhea - Skin: No new complaints Physical Exam General: Cooperative, healthy appearing, comfortable, no acute distress Orientation: Patient oriented x3 Head: Normal to inspection Ears: Within normal limit visually Nose: Normal external nose present Face and sinus: Normal facial exam Eyes: Appearance normal, extraocular movement intact pupils reactive Neck: Normal visual inspection and supple Respiratory: Normal respiratory effort and able to speak in complete sentences. Clear to auscultation, no stridor Cardiovascular: S1 and S2 RRR GI: Normal to inspection. Soft to palpation and nontender Skin: Turgor normal, no acute findings Neuro: Patient oriented x3, motor intact, balance of Back: Pain located left side paraspinal thoracolumbar Extremities: Normal to inspection, hip joint range of motion intact without pain, both shoulders with limited range of motion chronic . [facility] Medical History GERD (gastroesophageal reflux disease) Diabetic nephropathy associated with type 2 diabetes mellitus Diabetic polyneuropathy associated with type 2 diabetes mellitus Diabetes type 2, controlled Proliferative diabetic retinopathy skilled nursing (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 Diabetes type 2, uncontrolled Dyslipidemia Hypertension Surgical History Hx of cholecystectomy Hx of hysterectomy Hx of carpal tunnel repair Hx of tonsillectomy Family History Son Family history of thyroid problem Mother No problems noted. Father No problems noted. Social History Household Members: Spouse Housing: Apartment Alcohol intake: never Patient Tobacco Use Status: Former Tobacco user e-Cigarette/Vaping Use: Never Used Current occupational status: unemployed Cognitive needs: No Hearing needs: Yes Vision needs: Yes Questionnaire PHQ-9 Over the last 2 weeks, how often have you been bothered by any of the following problems? 1. Little interest or pleasure in doing things: several days 2. Feeling down, depressed, or hopeless: not at all 3. Trouble falling or staying asleep, or sleeping too much: not at all 4. Feeling tired or having little energy: not at all 5. Poor appetite or overeating: not at all 6. Feeling bad about yourself - or that you are a failure or have let yourself or your family down: not at all 7. Trouble concentrating on things, such as reading the newspaper or watching television: not at all 8. Moving or speaking so slowly that other people could have noticed. Or the opposite - being so fidgety or restless that you have been moving around a lot more than usual: not at all 9. Thoughts that you would be better off or of hurting yourself in some way: not at all Total score: 1 Depression Screening Interpretation: Negative Depression Screening Done: Yes 39241 - PHQ-9 Billing: Yes Source: Developed by Drs. Jorge Guzman, Madina Hinojosa, Luke Browning and colleagues, with an educational lissy from [employer]. Thrive Questionnaire Date Thrive assessed: 11/15/24 I am a: Patient What is your living situation today?: I have a steady place to live Within the past 12 months, did the food you bought not last and you didn't have the money to get more?: Never true Within the past 12 months, did you worry whether your food would run out before you got money to buy more?: Never true Do you have trouble paying for medicines?: No Do you have trouble getting transportation to medical appointments?: No Do you have trouble paying your heating and electricity bill?: No Do you have trouble taking care of your child, family member or friend?: No Do you have trouble with day-to-day activities such as bathing, preparing meals, shopping, managing finances, etc.?: Yes Are you currently unemployed and looking for a job?: No Are you interested in more education?: No Please select the resources that you would like help with: None Currently or been in a relationship where the following occur: No concerns reported THRIVE Score: 0 AUDIT C Alcohol Use Questionnaire (AUDIT-C) 1. How often do you have a drink containing alcohol?: Never 3. How often do you have six or more drinks on one occasion?: Never Total Score: 0 JOEY-7 AMB Questionnaire JOEY-7 Date JOEY - 7 assessed: 11/15/24 Feeling nervous, anxious, or on edge: 0 = Not at all Not being able to stop or control worryin = Not at all Worrying too much about different things: 0 = Not at all Trouble relaxin = Not at all Being so restless that it is hard to sit still: 0 = Not at all Becoming easily annoyed or irritable: 0 = Not at all Feeling afraid as if something awful might happen: 0 = Not at all Total JOEY-7 score (0-4 normal; 5-9 mild; 10-14 moderate; 15-21 severe): 0 Source: Developed by Drs. Jorge Guzman, Madina Hinojosa, Luke Browning and colleagues, with an educational lissy from [employer]. JOEY-7 Assessment Billing JOEY-7 Assessment Tool: JOEY-7 Assessment 23113 Physical exam (Primary Care) Vital Signs: Last Vital Signs Pulse 96 05/26/25 11:01 BP 122/68 05/26/25 11:01 Pulse Ox 96 05/26/25 11:01 Oxygen Delivery Method Room Air 05/26/25 11:01 BMI result Body Mass Index 26.4 Tobacco/Smoking Status: Tobacco use Status Tobacco use date assessed 11/15/24 05/26/25 11:05 Patient Tobacco Use Status Former Tobacco user 05/26/25 11:05 e-Cigarette/Vaping Use Never Used 05/26/25 11:05 PHQ-9: PHQ-9 Score PHQ-9: Total score 1 05/26/25 11:05 Depression Screening Interpretation: Negative Thrive Assessment: Date of Thrive Assessment Date Thrive assessed 11/15/24 05/26/25 11:05 Currently or been in a relationship where the following occur: No concerns reported Coding Level of Care Code Est Pt Level 4 (11987) Est Pt Prev Care >65y(41010) Diagnoses Encounter for general adult medical examination with abnormal findings Z00.01 Microcytic anemia D50.9 Back muscle spasm M62.830 Essential hypertension I10 Hypertension type: essential hypertension skilled nursing (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 Z79.4 Diabetes type 2, controlled E11.9 Gastroesophageal reflux disease, unspecified whether esophagitis present K21.9 Esophagitis presence: esophagitis presence not specified Diabetic nephropathy associated with type 2 diabetes mellitus E11.21 Primary osteoarthritis of both shoulders M19.011; M19.012 Osteoarthritis type: primary Vitamin D deficiency E55.9 Additional Codes PHQ-9 - 94521 - PHQ-9 Billing: Yes ([id number]) JOEY-7 Assessment Billing - JOEY-7 Assessment Tool: JOEY-7 Assessment [id number] ([id number]) Assessment & Plan Assessment & Plan (1) Encounter for general adult medical examination with abnormal findings: Code(s): Z00.01 - Encounter for general adult medical examination with abnormal findings Category: Medical (2) Microcytic anemia: Code(s): D50.9 - Iron deficiency anemia, unspecified Category: Medical (3) Back muscle spasm: Code(s): M62.830 - Muscle spasm of back Category: Medical (4) Hypertension: Code(s): I10 - Essential (primary) hypertension Category: Medical Qualifiers: Hypertension type: essential hypertension Qualified Code(s): I10 - Essential (primary) hypertension (5) joint terminal attack controller (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: Code(s): Z79.4 - joint terminal attack controller (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 Category: Medical (6) Diabetes type 2, controlled: Code(s): E11.9 - Type 2 diabetes mellitus without complications Category: Medical (7) GERD (gastroesophageal reflux disease): Code(s): K21.9 - Gastro-esophageal reflux disease without esophagitis Category: Medical Qualifiers: Esophagitis presence: esophagitis presence not specified Qualified Code(s): K21.9 - Gastro-esophageal reflux disease without esophagitis (8) Diabetic nephropathy associated with type 2 diabetes mellitus: Code(s): E11.21 - Type 2 diabetes mellitus with diabetic nephropathy Category: Medical (9) Osteoarthritis of shoulders, bilateral: Code(s): M19.011 - Primary osteoarthritis, right shoulder; M19.012 - Primary osteoarthritis, left shoulder Category: Medical Qualifiers: Osteoarthritis type: primary Qualified Code(s): M19.011 - Primary osteoarthritis, right shoulder; M19.012 - Primary osteoarthritis, left shoulder (10) Vitamin D deficiency: Code(s): E55.9 - Vitamin D deficiency, unspecified Category: Medical Plan Physical exam appointment The patient is a 79-year-old female presenting with left lower back pain, anemia, vitamin D deficiency, and diabetes management Osteoarthritis of the left hip: - An X-ray performed in January revealed significant arthritis in the left hip. - manageable with Tylenol Anemia: - The patient's hemoglobin levels have decreased from 11.9 in 2020 to 9.9 recently. - She shows no overt signs of bleeding, implying potential microscopic bleeding over time. Vitamin D deficiency: - The patient's vitamin D levels were noted to be very low during recent lab evaluations. Diabetes: - Hemoglobin A1c is recorded at 7.4, indicating hyperglycemia. Patient is diabetic and is on Trulicity and long-acting insulin along with metformin 1 g b.i.d. and pioglitazone 30 mg daily Lipid disorder: Treated with a rosuvastatin 40 mg Blood pressure is stable with lisinopril 10 mg Diabetic neuropathy treated with gabapentin 100 mg as needed Preventive care: Mammograms from [facility] Patient saw gastroenterology early this year for colonoscopy screening her last colonoscopy was in 2014, repeat colonoscopy will be scheduled going forward Patient Instructions - Continue taking Vitamin D supplements daily. - Continue gabapentin for neuropathy at night and Tylenol as prescribed. Osteoarthritis joints - follow up with Hematology for anemia, referral created - continue medications - small dose of muscle relaxer sent for back pain to be taken only at night - Schedule follow-ups in three months and an annual physical exam. Orders: Referrals Hematology & Oncology Referral D50.9 - Iron deficiency anemia, unspecified Medications: New cholecalciferol (vitamin D3) 50 mcg PO DAILY 90 caps 3RF cyclobenzaprine 5 mg PO BEDTIME 30 tabs 0RF back pain 30 days
[2025-05-26 11:01] VITALS: BP 122/68; PULSE 96; O2SAT 96; BMI 26.4
--- OUTSIDE RECORDS SUMMARY | 2025-05-26 12:44 | XMS_ITS ---
Author Name Michelle Mueller NP Address [address] [place] [address] Phone [phone] [facility] Care Team Providers Care Jewelry Sales Associate Name Role Phone Ervin Michelle Unavailable [phone] Dpt., [facility] Unavailable [phone] Unavailable Unavailable Unavailable Mari Orellana Unavailable Unavailable JOSH DAILEY Unavailable [phone] Reason for Referral Not Available Allergies, adverse [...] 1 TABLET BY MO UT EVERY MORNING PRN 2022-01-02 No Data Available OneTouch Delica Plus [id number] Miscellaneous TEST BLOOD SUGAR 4 TIMES A [...] MOUTH EVERY MORNING 2024-06-27 No Data Available Reflektionuch Verio Flex System w/Device Kit TEST BLOOD [...] daily as needed 2025-02-20 No Data Available Lisinopril 10 mg Tab TAKE 1 TABLET BY MO UTH EVERY MORNING 2024-05-18 No Data Available Chlorhexidine Gluconate 0.12 % Solution RINSE TWICE A DAY UNTIL GONE SPIT DO NOT SWALLOW 2025-03-27 No Data Available Problem List Problem Status Onset Date Resolved Date Synopsis Type 2 diabetes mellitus with proliferative diabetic retinopathy with macular edema, bilateral Active 2024-02-17 N/A no report of any eye pain or vision changes ongoing monitoring and management as per homeland security program specialist Type 2 diabetes mellitus with diabetic [...] who reports she presented to ER at [facility] on the morning of 11/18/24 after [...] avoid tree fruits until she sees an prosthetic aide-Advised to set up appt with PCP to obtain referral to prosthetic aide-Rx for benadryl given to member and advised to carry around with her at all time-Advised that if she experiencing another reaction to a fruit like this, she must not wait- take the benadryl and go to the ER immediately-Medical records requested from [facility] Tearfulness Active 2024-11-22 N/A 11/22/24:-memb er [...] Psych contingency plan sent to member via [employer] Other problems related to medical facilities and [...] Contact mental health professional:/ Transfer member to [address] [place] [address]/ Hydroxyzine (Vistaril) 25mg PO q6h PRN anxiety/ Remind member of breathing exercises/ Encourage member to journal feelings/ Limit extra stimulation Encounter for other specified aftercare, Status post fall, Myalgia Active 2025-02-20 N/A 02/20/25:Member p resented to [facility] ER on 02/18/2025 s/p fall.She states [...] the visit as PCP did not provide Korean translation and did not let member inform [...] follow up for new or worsening symptoms Allergic reaction Active 2025-04-19 N/A Avoid a llergensmay take Benadryl 25 mg q4-6h PRN allergies/itchingavoid rubbing/scratching hands/arms and eyesmay apply hypoallergenic lotion or cool compress to hands may apply cool compress to eyes Encounters Encounters Type Facility Date of Service Diagnosis/Co mplaint Medication List Documented (1159F) [facility] Medication List Documented (1159F) [facility] Medication List Documented (1159F) [facility] Medication List Documented (1159F) [facility] Medication List Documented (1159F) [facility] Medication List Documented (1159F) [facility]20[place] Type 2 diabetes mellitus wit h other specified complicationHyperlipidemia, unspecifiedOther specified diabetes mellitus with diabetic polyneuropathyEssential (primary) hypertensionDeficiency of other specified B group vitaminsVitamin D deficiency, unspecified No Data Available [facility]2022 Noninfective gastroenteritis and colitis, unspecified No Data Available [facility]2022 Noninfective gastroenteritis and colitis, unspecified Estab. patient 30-39min; chronic exacerbation, 2 stable chronic or 1 acute illness add add modifier 95 for video, (do not use for phone, instead use 98507-69) [facility]2023 Type 2 diabetes mellitus wit [...] (do not use for phone, instead use 21150-35) [facility] Estab. patient 30-39min; chronic exacerbation, 2 stable chronic or 1 acute illness add add modifier 95 for video, (do not use for phone, instead use 05989-18) [facility]20[place] Estab. patient 30-39min; chronic exacerbation, 2 stable chronic or 1 acute illness add add modifier 95 for video, (do not use for phone, instead use 32414-29) [facility] Estab. patient 30-39min; chronic exacerbation, 2 stable chronic or 1 acute illness add add modifier 95 for video, (do not use for phone, instead use 47807-53) [facility]20[place] Estab. patient 30-39min; chronic exacerbation, 2 stable chronic or 1 acute illness add add modifier 95 for video, (do not use for phone, instead use 28248-44) [facility] Estab. patient 30-39min; chronic exacerbation, 2 stable chronic or 1 acute illness add add modifier 95 for video, (do not use for phone, instead use 39082-63) [facility] Estab. patient 30-39min; chronic exacerbation, 2 stable chronic or 1 acute illness add add modifier 95 for video, (do not use for phone, instead use 25315-47) [facility] Estab. patient 30-39min; chronic exacerbation, 2 stable chronic or 1 acute illness add add modifier 95 for video, (do not use for phone, instead use 64987-88) [facility] Estab. patient 30-39min; chronic exacerbation, 2 stable chronic or 1 acute illness add add modifier 95 for video, (do not use for phone, instead use 17458-67) [facility]20[place] Estab. patient 30-39min; chronic exacerbation, 2 stable chronic or 1 acute illness add add modifier 95 for video, (do not use for phone, instead use 69492-61) [facility]2024 Type 2 diabetes mellitus wit [...] (do not use for phone, instead use 29647-24) [facility]17[place] Estab. patient 30-39min; chronic exacerbation, 2 stable chronic or 1 acute illness add add modifier 95 for video, (do not use for phone, instead use 98086-87) [facility]17/[place] Estab. patient 30-39min; chronic exacerbation, 2 stable chronic or 1 acute illness add add modifier 95 for video, (do not use for phone, instead use 74839-93) [facility]17/[place] Estab. patient 30-39min; chronic exacerbation, 2 stable chronic or 1 acute illness add add modifier 95 for video, (do not use for phone, instead use 85924-31) [facility]/17/[place]24 No Data Available [facility] [place]24 Pain In Right ArmOther probl ems related to medical facilities and other health care Unlisted special service; to be used for medical record reviews and reporting CPTII codes (1111F, etc) [facility] Other specified counseling Unlisted special service; to be used for medical record reviews and reporting CPTII codes (1111F, etc) [facility] [place] Unlisted special service; to be used for medical record reviews and reporting CPTII codes (1111F, etc) [facility] Estab. patient 10-29min; 1 minor problem; add add modifier 95 for video, modifier 93 for phone [facility] [place]/2024 Acute sinusitis, unspecified Estab. patient 10-29min; 1 minor problem; add add modifier 95 for video, modifier 93 for phone [facility] [place] Estab. patient 10-29min; 1 minor problem; add add modifier 95 for video, modifier 93 for phone [facility] [place] Estab. patient 10-29min; 1 minor problem; add add modifier 95 for video, modifier 93 for phone [facility] [place] Estab. patient 20-29min; 1 stable chronic or 2 minor; add add modifier 95 for video, modifier 93 for phone [facility], ([place]) 10/31/2024 Type 2 diabetes mellitus wit h [...] 95 for video, modifier 93 for phone [facility] [place]/31/[facility] Estab. patient 20-29min; 1 stable chronic or 2 minor; add add modifier 95 for video, modifier 93 for phone [facility] [place] Estab. patient 20-29min; 1 stable chronic or 2 minor; add add modifier 95 for video, modifier 93 for phone [facility] [place] Estab. patient 20-29min; 1 stable chronic or 2 minor; add add modifier 95 for video, modifier 93 for phone [facility] [place] Estab. patient 20-29min; 1 stable chronic or 2 minor; add add modifier 95 for video, modifier 93 for phone [facility] [place] Estab. patient 20-29min; 1 stable chronic or 2 minor; add add modifier 95 for video, modifier 93 for phone [facility] [place] Estab. patient 20-29min; 1 stable chronic or 2 minor; add add modifier 95 for video, modifier 93 for phone [facility] [place] Estab. patient 10-29min; 1 minor problem; add add modifier 95 for video, modifier 93 for phone [facility] [place]/2024 Dizziness and giddiness Estab. patient 10-29min; 1 minor problem; add add modifier 95 for video, modifier 93 for phone [facility] [place] Encounter for other specifie d aftercareAllergy, unspecified, subsequent encounterOther symptoms and signs involving emotional stateOther problems related to medical facilities and other health care Estab. patient 10-29min; 1 minor problem; add add modifier 95 for video, modifier 93 for phone [facility] [place]/22[place] Estab. patient 10-29min; 1 minor problem; add add modifier 95 for video, modifier 93 for phone [facility] [place]/22/2024 Estab. patient 10-29min; 1 minor problem; add add modifier 95 for video, modifier 93 for phone [facility] [place] 02/20/2025 Myalgia, unspecified siteDizziness and giddinessEncounter for other specified aftercareHistory of falling Estab. patient 10-29min; 1 minor problem; add add modifier 95 for video, modifier 93 for phone [facility] [place] 02/20/2025 Estab. patient 10-29min; 1 minor problem; add add modifier 95 for video, modifier 93 for phone [facility] [place] 02/20/2025 Estab. patient 10-29min; 1 minor problem; add add modifier 95 for video, modifier 93 for phone [facility] [place] 04/19/2025 Oth adverse food reactions, not elsewhere classified, initAllergy to other foodsEdema of right upper eyelidEdema of right lower eyelidEdema of left upper eyelidEdema of left lower eyelidPain in throatOther pruritusNasal congestion Estab. patient 10-29min; 1 minor problem; add add modifier 95 for video, modifier 93 for phone [facility] [place] 04/19/2025 Vital Signs Date of Collection Vitals 2022-06-25 [...] 12:36:33 Pain Scale - 7.0 {sc ore} 2025-04-19 21:47:41 Pain Scale - 0.0 {sc ore} Social History Social History Social History Observation Description Effec tive Time Current Smoking Status Former smoker 2025-05-02 6 Sex Female Gender identity Woman History of [...] (do not use for phone, instead use 33553-68) 51800 2022-06-25 No Data Available No Data Availa ble No Data Available 12123 2022-10-29 No Data Available No Data Available No Data Available [id number] 2022-10-31 No Data Available No Data Available Estab. patient 30-39min; chronic exacerbation, 2 stable chronic or 1 acute illness add add modifier 95 for video, (do not use for phone, instead use 39604-91) 50307 2023-04-21 No Data Available No Data Availa [...] (do not use for phone, instead use 23901-26) 26413 2024-02-17 No Data Available No Data Availa [...] No Data Avail able No Data Available 38825 2024-03-15 No Data Available No Data Available Unlisted special service; to be used for medical record reviews and reporting CPTII codes (1111F, etc) 65687 2024-06-22 No Data Available No Data Availa ble SBP < 130 (3074F) 3074F 2024-06-22 No Data Available No Data Available DBP <80 (3078F) 3078F 2024-06-22 No Data Available No Data Available Estab. patient 10-29min; 1 minor problem; add add modifier 95 for video, modifier 93 for phone 11675 2024-10-07 No Data Available No Data Availa [...] 95 for video, modifier 93 for phone 90288 2024-10-31 No Data Available No Data Availa [...] 95 for video, modifier 93 for phone 07967 2024-11-08 No Data Available No Data Availa ble Estab. patient 10-29min; 1 minor problem; add add modifier 95 for video, modifier 93 for phone 74548 2024-11-22 No Data Available No Data Availa [...] 95 for video, modifier 93 for phone 75530 2025-02-20 No Data Available No Data Availa ble Pain Assessment - Pain Documented on a Pain Scale (1125F) 1125F 2025-02-20 No Data Available No Data Nemo ilable Medication List Documented (1159F) 1159F 2025-02-20 No Data Available No Data Nemo ilable Estab. patient 10-29min; 1 minor problem; add add modifier 95 for video, modifier 93 for phone 74067 2025-04-20 No Data Available No Data Availa ble Pain Assessment - NO pain present (1126F) 1126F 2025-04-20 No Data Available No Data A vailable Functional Status Functional Category Effective Dates Cognition [...] other specified aftercare, Status post fall, MyalgiaVertigo 2025-04-19 21:47:41 Follow up plan for a cute symptoms: Contact CB for SOB or fever. Go to ED if throat swells.Allergic reaction Plan of Care Date of Service Plans [...] 30 mg, Trulicity 0.75mg weeklyfollows with her bee raiser Dr. Craig yearlytakes her blood sugars daily in the Am and typically range in 100-150's was seeing bathroom tiling professional however they have left and will be [...] nothing spicy or acidic. Will send in [employer]an. F/U scheduled for 10/31/22 with [employer] [facility] JETT. 2022-10-31 08:05:29 Televideo 20-29min; 1 stable [...] 30 mg, Trulicity 0.75mg weeklyfollows with her bee raiser Dr. Craig yearlytakes her blood sugars daily in the Am and typically range in 100-150's was seeing bathroom tiling professional however they have left and will be establishing her diabetic care with her PCP [facility] Update 04/21/23:Follows up with PCP every 3 months. Last visit 03/17/23.Follows up with Signal Maintainer Helper, next appt 05/08/23. Last A1C reported by [...] low abd pain. [facility] Follow-up with Yenny [...] record (1158F)Continue to see PCP. Follow-up with Yenny as needed for any acute or disease education needs that may arise 23/03.11/22/24:I spoke with member who reports she presented to ER at [facility] on the morning of 11/18/24 after [...] avoid tree fruits until she sees an prosthetic aide-Advised to set up appt with PCP to obtain referral to prosthetic aide-Rx for benadryl given to member and advised to carry around with her at all time-Advised that if she experiencing another reaction to a fruit like this, she must not wait- take the benadryl and go to the ER immediately-Medical records requested from [facility]11/22/24:-member became suddenly tearful towards end of [...] Contact mental health professional:/ Transfer member to [address] [place] [address]/ Hydroxyzine (Vistaril) 25mg PO q6h PRN anxiety/ [...] education needs that may arise.02/20/25:Member presented to [facility] ER on 02/18/2025 s/p fall.She states [...] the visit as PCP did not provide Korean translation and did not let member inform [...] to follow up for new or worsening gtislrxv22/11/2025Start Meclizine 12.5 mg q 6 hours as needed. Change positions slowly. Recommend to follow up with PCP for further evaluation. 02/20/25:-Advised on continued use of meclizine prn for vertigo. Advised on slow, purposeful movement. Fall precautions. Reinforced use of ambulatory aid at all times (cane, walker). 2025-04-19 21:47:41 Televideo 10-29min; 1 minor problem; add add modifier 95 for video, modifier 93 for phonePain Assessment - NO pain present (1126F)Continue to see PCP. Follow-up with Yenny as needed for any acute or disease education needs that may arise 23/03.Avoid allergensmay take Benadryl 25 mg q4-6h PRN allergies/itchingavoid rubbing/scratching hands/arms and eyesmay apply hypoallergenic lotion or cool compress to hands may apply cool compress to eyes Goals Date Goal 2022-06-25 Remember to check [...] with your PCP and specialists. Call BRANDIE 23/03 if you have questions or concerns. Discussed how to contact [facility] via phone or tablet. BRANDIE 23/03 phone number provided. 2024-10-31 At least [...] follow up care. Health Concerns Date Concern 2025-04-20 Patient/Guardian juanis padilla to visit via telehealth with interpreting service.Visit completed via:[ ] audio and video; [x] audio only 2025-04-20 Concerns for today's visit: Allergic reactionSummary: Member reports swollen eyes, burning throat, and runny nose after eating an apple. 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 She was having issues breathing but allergy medicine resolved that issue. She is also experiencing itching in her hands. Denies fever, chills. Unable to take VS. Symptoms started today. Member has taken an Benadryl allergy pill which helped. 2025-04-20 Most recent hospital stay or ER visit: ED 02/18/25
--- OUTSIDE RECORDS SUMMARY | 2025-05-26 12:44 | XMS_ITS | Clinical Summary ---
Author Organization [address] Address [address] [place] [phone] Phone Care Team Providers Care Gas Scrubber Operator Name Role Phone Harshad Castle MD Primary Care Provider [phone] Allergies Active Allergy Reactions Criticality Noted Date [...] BLOOD SUGAR FOUR TIMES DAILY 4 Active diclofenac (Voltaren Arthritis Pain) 1 % topical gel Apply 4 g topically 2 (two) times a day. 240 g 1 5 07/23/20 25 Active Active Problems Problem Noted Date Diagnosed Date Tinnitus aurium, 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 NPDR (nonproliferative diabe tic retinopathy) ([facility] V24, [facility] V28) 04/21/2017 Type 2 diabetes mellitus wit h eye manifestations ([facility] V24, [facility] V28) 04/21/2017 Overview (06/01/2024): Sees Dr. Donna ritter at [facility] Diabetic neuropathy ([facility] V24, [facility] V28) 0 04/21/2017 BPPV (benign paroxysmal positional vertigo) 10/01 Obesity (BMI 30.0-34.9) 07/08/2016 Diverticulosis 06/18/2015 GERD (gastroesophageal reflux disease) 5 HTN (hypertension) 06/18/2015 Hyperlipidemia 06/18/2015 Osteoarthritis, knee 06/18/2015 Overview (06/01/2024): Bilateral Positive PPD 06/18/2015 Tubular adenoma of colon 06/18/2015 Type 2 diabetes mellitus wit h cataract ([facility] V24, [facility] V28) 06/18/2015 Type 2 diabetes mellitus wit h neurological manifestations, controlled ([facility] V24, [facility] V28) 06/18/2015 Overview (06/01/2024): Sees Dr. Donna ritter at [facility] Encounters Date Type Department Care Team Description 05/24/2025 10:15 AM EDT Office Visit Orthopedic Surgery - [place] [address] [phone] Esteban Donato DPM Controlled type 2 diabetes with neuropathy ([facility] V24, [facility] V28) (Primary Dx); Arthritis of both feet; Pain in toes of both feet; Hammertoes of both feet; Dermatophytosis, nail 03/22/2025 10:30 AM EDT Office Visit Orthopedic Surgery - [place] [address] [phone] Esteban Donato DPM Controlled type 2 diabetes with neuropathy ([facility] V24, [facility] V28) (Primary Dx); Arthritis of [...] Type 2 diabetes mellitus wit h cataract ([facility] V24, [facility] V28) 06/18/2015 DX:Type 2 diabetes mellitus with cataract ([facility]) BPPV (benign paroxysmal posi tional vertigo) 10/14/2016 DX:BPPV (benign paroxysmal p ositional vertigo) Type 2 diabetes mellitus wit h neurological manifestations, controlled ([facility] V24, [facility] V28) 06/18/2015 DX:Type 2 diabet es mellitus with neurological manifestations, controlled ([facility]) Type 2 diabetes mellitus wit h eye manifestations ([facility] V24, [facility] V28) 04/21/2017 DX:Type 2 diabetes mellitus with eye manifestations ([facility]) Diabetic retinopathy ([facility], [facility] V28) 04/21/2017 DX:Diabetic retinopathy ([facility] ) Diabetic neuropathy ([facility] V24, [facility] V28) 04/21/2017 DX:Diabetic neuropathy ([facility]) Tinnitus aurium, 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 DX:Ti [...] AM EST Office Visit Orthopedic Surgery - [place] [address] [phone] Esteban Donato, DPDanny [address] [address] Health Maintenance Due Date Last Done Comments [...] Procedure Name Priority Date/Time Associated Diagnosis Comments HM URINE ALBUMIN CREATININE RATIO Routine 01/04/2024 HEMOGLOBIN [...] * Urine Albumin Creatinine Ratio (01/04/2024) Pathologist [facility] Urine Albumin Creatinine Ratio abstracted [facility] Provider HEALTH MAINTENANCE Final Result * (ABNORMAL) Hemoglobin A1c (01/04/2024) [facility] Hemoglobin A1C 7.0(A) <=6.5 % Blood Venous blood specimen / Unknown [facility] Provider LAB BLOOD ORDERABLES Kassidy l Result * Lipid panel (01/04/2024) [facility] LDL/HDL Ratio 2 0 - 4 Triglycerides 103 0 - 150 mg/dL Cholesterol 144 0 - 200 mg/dL HDL 88 >=40 mg/dL LDL Cholesterol 36 0 - 100 mg/dL Blood Venous blood specimen / Unknown [facility] Provider LAB BLOOD ORDERABLES Kassidy l Result [...] (World Health Organization Fracture Risk Assessment) [facility] Department of Internal Medicine recommends [...] (World Health Organization Fracture Risk Assessment) [facility] Department of Internal Medicine recommendsusing [...] (11/05/2022) Annual BMP Blood Test abstracted Result [facility] Historical Provider HEALTH MAINTENANCE Final Result * Hepatitis C Screening (03/15/2015) Hepatitis C Screening abstarcted Result [facility] Historical Provider HEALTH MAINTENANCE Final Result from Last 3 Months or Most Recently Relevant to Health Maintenance Insurance [facility] MEDICAID - [place] Care Teams Gas Scrubber Operator Relationship Specialty Start Date End Date Harshad Castle MD [address] [place] [phone] PCP - General Internal Medicine 07/08/24
--- OUTSIDE RECORDS SUMMARY | 2025-05-26 12:44 | XMS_ITS | Patient Health Record ---
Author Organization [facility] Address [address] [place] [address] Care Team Providers Care Bookbinder Chief Name Role Phone Mustapha Phelps MD Primary Care Provider Jorge Reed [phone] Allergies Allergen (clinical drug ingredient) Drug/Non Drug [...] Problem Status W/U Status Risk Notes Problem [id number] Gastroesophageal reflux disease without esophagitis (K21.9) Active confirmed Problem [id number] Other iron deficiency anemia (D50.8) Active confirmed Plan Of Treatment Future Test Test Name Order Date UPPER GI ENDOSCOPY 11/22/2014 COLONOSCOPY 11/22/2014 Insurance Providers Payer Name Payer Address Payer Phone Subscriber Number Group Number Insured Name Patient Relationship to Insured Coverage Start Date Coverage End Date [facility] [address] [address] [place] [address] [id number] MANISH YOO Self - patient is the [...] esophagus hypertension she denies any history of CA, stroke, rubina ng disease, nor kidney disease [...]
== END 2025-05-26 11:25 | disposition home or self-care (01) ==
LOC: HO.HMCC 10:57
PROVIDERS: PCP Internal Medicine; Visit Provider Internal Medicine
DX: Z00.01 Encounter for general adult medical examination with abnormal findings (principal); E11.21 Type 2 diabetes mellitus with diabetic nephropathy; Z79.4 Long term (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; D50.9 Iron deficiency anemia, unspecified; M62.830 Muscle spasm of back; I10 Essential (primary) hypertension; K21.9 Gastro-esophageal reflux disease without esophagitis; M19.011 Primary osteoarthritis, right shoulder; M19.012 Primary osteoarthritis, left shoulder; E55.9 Vitamin D deficiency, unspecified

== ENCOUNTER → 2025-05-26 10:56 | Outpatient (BNVA) | payer MEDICARE, SELFPAY | PROVIDERS: PCP Internal Medicine; Visit Provider Internal Medicine | DX: Z00.01 Encounter for general adult medical examination with abnormal findings (principal); M16.12 Unilateral primary osteoarthritis, left hip; E11.65 Type 2 diabetes mellitus with hyperglycemia; E11.21 Type 2 diabetes mellitus with diabetic nephropathy; M54.50 Low back pain, unspecified; E55.9 Vitamin D deficiency, unspecified; I10 Essential (primary) hypertension; D50.9 Iron deficiency anemia, unspecified; M62.830 Muscle spasm of back; K21.9 Gastro-esophageal reflux disease without esophagitis; M19.011 Primary osteoarthritis, right shoulder; M19.012 Primary osteoarthritis, left shoulder; Z79.4 Long term (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; Z79.899 Other long term (current) drug therapy | CPT/HCPCS: 96127; 99212; 99397 ==

== ENCOUNTER → 2025-07-04 13:16 | Outpatient (BNV) | payer MEDICARE, SELFPAY | PROVIDERS: PCP Internal Medicine; Referring Provider Internal Medicine; Visit Provider Internal Medicine Medical Oncology | DX: D50.9 Iron deficiency anemia, unspecified (principal) | CPT/HCPCS: 99204 ==

== ENCOUNTER 2025-07-18 09:26 | Outpatient (AMB) | payer MEDICARE, SELFPAY ==
[2025-07-18 09:27] VITALS: BP 118/52; PULSE 87; O2SAT 97; BMI 26.3
--- NOTE | 2025-07-18 09:27 | MHC.OFFWIV ---
Intake Vital Signs 07/18/25 09:27 Height 5 ft 1 in Weight 139 lb BMI 26.3 BP 118/52 L Blood Pressure Location Lt brachial Position Sitting Pulse 87 Pulse Source Pulse Oximeter Pulse Oximetry (%) 97 Oxygen Delivery Method Room Air Intake Visit Reasons: EP-rt shoulder pain Intake Note: Patient presents right shoulder pain x1 week - no known injury. Patient Tobacco Use Status: Former Tobacco user Allergies strawberry Allergy (Severe, Verified 07/18/25 09:30) Anaphylaxis Iodinated Contrast Media (IV DYE, IODINE CONTAINING) Allergy (Intermediate, Verified 07/18/25 09:30) DYSPNEA apple Allergy (Verified 07/18/25 09:30) Facial Swelling peach Allergy (Verified 07/18/25 09:30) Eye Swelling HPI HPI Comments History of Present Illness Details History of Present Illness - The patient is a 79-year-old Greenlandic speaking female presenting with her family for right shoulder pain. - The pain began two weeks ago, described as bone pain, and has not improved with Aleve, Tylenol, or Flexeril. - No trauma or fall was reported; the pain started during cooking activities. - The patient is right-handed, with no numbness or tingling in the arm, and also reports headaches. - She has increased pain with movement and lifting her arm. - The pain radiates to the neck and upper back. - She denies fall or trauma. - She denies numbness or tingling. Physical Exam General: Cooperative, healthy appearing, comfortable, no acute distress and well developed Orientation: Patient oriented x3 Neck: Normal visual inspection. FROM of the neck. No midline spinous tenderness noted. TTP of the right lateral neck. Respiratory: Normal respiratory effort and able to speak in complete sentences. Clear to auscultation bilaterally. No w/r/r noted. Cardiovascular: Regular rate and rhythm. Normal S1 and S2 Skin: No rashes or lesions noted Neuro: Sensation is intact. Extremities: Limited range of motion in the right shoulder due to pain. No click noted. TTP of the AC joint, clavicle, bicipital groove, bicep, and along the scapula. FROM of the right elbow and wrist. No TTP of the elbow, forearm, wrist or hand. Hand emergency medicine medical director is intact, 4/5. Unable to perform special tests due to her pain. Patient was informed and verbally consented to the use of an ambient scribe for clinic note documentation during this visit. [facility] Medical History GERD (gastroesophageal reflux disease) Diabetic nephropathy associated with type 2 diabetes mellitus Diabetic polyneuropathy associated with type 2 diabetes mellitus Diabetes type 2, controlled Proliferative diabetic retinopathy [facility] (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 Diabetes type 2, uncontrolled Dyslipidemia Hypertension Surgical History Hx of cholecystectomy Hx of hysterectomy Hx of carpal tunnel repair Hx of tonsillectomy Family History Son Family history of thyroid problem Mother No problems noted. Father No problems noted. Social History (Updated 07/04/25 @ 14:18 by Marjorie Ruelas) Household Members: None Housing: Apartment Alcohol intake: never Patient Tobacco Use Status: Former Tobacco user Tobacco use type: Cigarette e-Cigarette/Vaping Use: Never Used service: No Current occupational status: unemployed Cognitive needs: No Hearing needs: Yes Vision needs: Yes Review of Systems Const All systems reviewed & are unremarkable except as noted in HPI and below Physical Exam Vital Signs: Last Vital Signs Pulse 87 07/18/25 09:27 BP 118/52 L 07/18/25 09:27 Pulse Ox 97 07/18/25 09:27 Oxygen Delivery Method Room Air 07/18/25 09:27 BMI result Body Mass Index 26.3 Results Reviewed Results Reviewed: will review the x-ray in the office Assessment & Plan Assessment & Plan (1) Right shoulder strain: Code(s): S46.911A - Strain of unspecified muscle, fascia and tendon at shoulder and upper arm level, right arm, initial encounter Qualifiers: Encounter type: initial encounter Qualified Code(s): S46.911A - Strain of unspecified muscle, fascia and tendon at shoulder and upper arm level, right arm, initial encounter Plan Most likely strain vs AC separation vs arthritis vs bursitis vs calcific tendonitis plan - will order an x-ray - naproxen as needed for pain - will give her a sling - rest and heat to the shoulder - follow up with PCP - can refer to PT or ortho if no better Orders: Orders XR shoulder RT min 2V Today M25.511 - Pain in right shoulder Medications: New naproxen 500 mg PO Q12H PRN 20 tabs 0RF pain 7 days Coding Level of Care Code Est Pt Level 4 (83891) Diagnoses Strain of right shoulder, initial encounter S46.911A Encounter type: initial encounter
== END 2025-07-18 10:28 | disposition home or self-care (01) ==
PROVIDERS: PCP Internal Medicine; Visit Provider Physician Assistant Medical
DX: S46.911A Strain of unspecified muscle, fascia and tendon at shoulder and upper arm level, right arm, initial encounter (principal)

== ENCOUNTER 2025-07-18 09:26 | Outpatient (REF) | payer MEDICARE, SELFPAY ==
--- NOTE | ~2025-07-18 | XR_ITS ---
EXAMINATION: XR SHOULDER, RIGHT CLINICAL INFORMATION: M25.511 - Pain in right shoulder COMPARISON: 06/09/2024. TECHNIQUE: AP external rotation, Grashey, scapular Y, and axillary views of the right shoulder. FINDINGS: Normal bone mineralization. No fracture, dislocation, or suspicious bone lesion. Normal alignment. The glenohumeral joint demonstrates mild degenerative arthritis. The AC joint demonstrates mild undersurface spurring. There is a type I acromion. No undersurface spurring. The subacromial space is preserved. Remainder of the soft tissue and bony structures appear normal. XR/XR shoulder RT min 2V IMPRESSION: 1. No acute bony or soft tissue abnormality of the right shoulder. 2. Mild degenerative arthritis in the glenohumeral joint and AC joint. Electronically signed by: Barrett Roy MD 07/18/2025 10:16 AM ESTEPHANIE
== END 2025-07-18 09:27 | disposition home or self-care (01) ==
LOC: HO.HMGCX 09:26
PROVIDERS: PCP Internal Medicine; Visit Provider Physician Assistant Medical
DX: S46.911A Strain of unspecified muscle, fascia and tendon at shoulder and upper arm level, right arm, initial encounter (principal); X58.XXXA Exposure to other specified factors, initial encounter
CPT/HCPCS: 73030

== ENCOUNTER → 2025-07-18 09:58 | Outpatient (BNV) | payer MEDICARE, SELFPAY | PROVIDERS: PCP Internal Medicine; Visit Provider Radiology Diagnostic Radiology | DX: M19.011 Primary osteoarthritis, right shoulder (principal) | CPT/HCPCS: 73030 ==

== ENCOUNTER → 2025-08-16 08:51 | Outpatient (RCR) | payer MEDICARE, MEDICAID, SELFPAY ==
--- NOTE | 2024-06-29 16:47 | MHC.PT.EP ---
[facility] [place] Office [place] Office [place] Office [address] [phone] F: [phone] F: [phone] F: [phone] F: [phone] Physical Therapy Plan of Care Date of Evaluation: 06/29/24 Date of Surgery: Diagnosis: B shoulder Pain Assessment: Pt is a 78 y/o RHD female with Hx of HTN and DM II who is referred to PT for eval and treat of B shoulder pain which is resulting in decreased tolerance for performing HH chores, dressing her hair, dressing pullovers and reaching high shelves secondary to decreased B shoulder AROM, decreased B shoulder strength, forward head and rounded shoulder posture and sedentary lifestyle. Pt is deemed an appropriate candidate to receive skilled PT services to address their physical impairments in order to improve their functional ability. Frequency and Duration: The patient will be seen 2 x / wk x 3 wks. Short Term Goals: initiate home program. Improve baseline pain to < 6/10. initial 9/10. Mcfp Goals: I with home program. Pt will improve SPADI by at least 12 points. Pt will achieve at least 125 degrees AROM flexion B. initial: 100 L, 60 R. Pt will be able to dress her hair with managed Sx. Treatment Plan: Modalities to reduce pain, spasms and effusion. Manual therapy to restore motion and function. Therapeutic exercise to improve strength and flexibility. Neuromuscular re-education for posture and balance. Therapeutic activities to return to functional activities of daily living. Electronically signed by: Beck Colon PT. Please sign and return to therapist. Thank you for your referral.
== END | disposition home or self-care (01) ==
LOC: HO.PT 07-04 08:00
PROVIDERS: PCP Internal Medicine; Visit Provider Physician Assistant
DX: M19.011 Primary osteoarthritis, right shoulder (principal); M19.012 Primary osteoarthritis, left shoulder
CPT/HCPCS: 97110; 97161

== ENCOUNTER 2025-08-29 10:49 | Outpatient (AMB) | payer MEDICARE, SELFPAY ==
--- NOTE | 2025-08-29 10:52 | A.OFFPC_ITS ---
Vital Signs 08/29/25 10:53 Height 5 ft 1 in Weight 137 lb 4 oz BMI 25.9 BP 116/58 L Blood Pressure Location Lt brachial Position Sitting Pulse 85 Pulse Source Pulse Oximeter Pulse Oximetry (%) 95 Oxygen Delivery Method Room Air Intake Visit Reasons: 3 mo follow up Manager Auto: Present Accompanied by: Child Allergies strawberry Allergy (Severe, Verified 08/29/25 10:53) Anaphylaxis Iodinated Contrast Media (IV DYE, IODINE CONTAINING) Allergy (Intermediate, Verified 08/29/25 10:53) DYSPNEA apple Allergy (Verified 08/29/25 10:53) Facial Swelling peach Allergy (Verified 08/29/25 10:53) Eye Swelling Medication List - Last Reconciled 08/29/25 by Harshad Castle MD [Accu check Lancents check sugar tid] Accu-Chek Guide Glucose Meter (blood-glucose meter) Check blood sugar 2 times a day as directed NS Accu-Chek Soft Dev Lancets (lancing device with lancets) Check blood glucose 2 times a day as directed NS alcohol swabs (Alcohol Pads) 1 pad topical BID aspirin (Adult Low Dose Aspirin) 81 mg PO DAILY bisacodyl (Dulcolax (bisacodyl)) 10 mg (2 x 5 mg) PO BEDTIME blood sugar diagnostic (Accu-Chek Guide test strips) Check blood sugar 2 times a day as directed cetirizine (Zyrtec) 10 mg PO DAILY cholecalciferol (vitamin D3) 50 mcg PO DAILY cyanocobalamin (vitamin B-12) 100 mcg PO .qod 90 days cyclobenzaprine 5 mg PO BEDTIME 30 days dulaglutide (Trulicity) 0.75 mg (0.5 mL) subcut QWEEK 90 days fluticasone propionate 50 mcg/actuation (Flonase Allergy Relief) 1 spray intranasal DAILY gabapentin 100 mg PO .qhs lancets (OneTouch Delica Plus Lancet) Check blood sugar twice daily. lisinopril 10 mg PO DAILY 90 days metformin ER 1,000 mg (2 x 500 mg) PO BID naproxen 500 mg PO Q12H PRN 7 days omeprazole 20 mg PO DAILY pen needle, diabetic (BD Jennifer 2nd Gen Pen Needle) Once a day pioglitazone 30 mg PO DAILY 90 days rosuvastatin 40 mg PO DAILY 90 days Tobacco use date assessed: 08/29/25 Fall risk assessment: 1 Fall in past year Last assessed Fall Risk: 08/29/25 Dental Screening Dental Screen Date: 08/29/25 Did you have a dental visit in the last 12 months?: Yes Did you have a dental problem in the last 6 months where you did not have access to dental care?: No Was dental information given to patient?: Patient has dentist HPI HPI Comments History of Present Illness Details History of Present Illness The patient is a 79 year old female presenting for a 3-month follow-up appointment for management of multiple chronic conditions. Iron Deficiency Anemia: - The patient has anemia and low iron. - Labs from July showed a hemoglobin of 10.8, which was stable from October, and a ferritin level of 9. - She is not currently taking an iron payne pplement. Type 2 Diabetes Mellitus: - The patient's diabetes is managed with Trulicity, metformin, and pioglitazone. - She was previously on Trulicity 1.5 mg , but the dose was reduced to 0.75 mg because the higher dose was out of stock. - She wishes to return to the 1.5 mg dos e as she experienced weight loss with it. - She checks her blood sugar via finger stick at home in the mornings. - A xsaol-qq-fenl hemoglobin A1c test du ring the visit was 7.1%. Arthritis of the Right Shoulder: - The patient complains of right shoulde r pain. - She is right-handed and uses this arm frequently for cleaning, which is thought to exacerbate the pain. - Last year she complained of pain in lisa th shoulders, but the right shoulder is now worse. - A previous X-ray of the shoulder showe d arthritis. - She has previously declined physical t herapy. Constipation: - The patient experiences constipation, which the caregiver noted can be a side effect of her medications. - She sometimes uses MiraLAX at home. Vitamin Deficiencies: - The patient takes supplements for иван min B12 and vitamin D deficiencies. - Despite supplementation, her vitamin D level remained low on her July labs. Medical History: - Type 2 diabetes mellitus - Hypertension - Hyperlipidemia - Iron deficiency anemia - Gastroesophageal reflux disease (GERD) - Diabetic neuropathy - Allergic rhinitis - Arthritis - Back spasms - Vitamin D deficiency - Vitamin B12 deficiency Medications: - Aspirin - Zyrtec for allergies - Vitamin D supplement for deficiency - B12 supplement for deficiency - Cyclobenzaprine 5 mg at bedtime as nee ded for back spasms - Trulicity 0.75 mg for diabetes - Flonase (fluticasone) nasal spray for allergic rhinitis - Gabapentin 100 mg at bedtime for diabe tic neuropathy - Lisinopril 10 mg for blood pressure ma nagement - Metformin 1 g BID for diabetes - Omeprazole 20 mg for GERD - Pioglitazone 30 mg for diabetes manage ment - Amlosuvastatin 40 mg for lipid control - Naproxen for joint aches and pains Social History: - Functional Status: The patient is righ t-handed and uses her right arm for cleaning, which exacerbates her shoulder pain. Diagnostic Results: - Labs (July): - Hemoglobin: 10.8 (stable since October o f this year). - Electrolytes: stable. - GFR: 60. - Ferritin: 9 (low). - Vitamin D: low. - Labs (today): - Hemoglobin A1c: 7.1%. - Imaging (prior): - Right shoulder X-ray: Showed arthritis . 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 Father No problems noted. Social History Household Members: None Housing: Apartment Alcohol intake: never Patient Tobacco Use Status: Former Tobacco user Tobacco use type: Cigarette e-Cigarette/Vaping Use: Never Used service: No Current occupational status: unemployed Cognitive needs: No Hearing needs: Yes Vision needs: Yes Questionnaire Thrive Questionnaire Date Thrive assessed: 11/15/24 I am a: Patient What is your living situation today?: I have a steady place to live Within the past 12 months, did the food you bought not last and you didn't have the money to get more?: Never true Within the past 12 months, did you worry whether your food would run out before you got money to buy more?: Never true Do you have trouble paying for medicines?: No Do you have trouble getting transportation to medical appointments?: No Do you have trouble paying your heating and electricity bill?: No Do you have trouble taking care of your child, family member or friend?: No Do you have trouble with day-to-day activities such as bathing, preparing meals, shopping, managing finances, etc.?: Yes Are you currently unemployed and looking for a job?: No Are you interested in more education?: No Currently or been in a relationship where the following occur: No concerns reported THRIVE Score: 0 AUDIT C Alcohol Use Questionnaire (AUDIT-C) 1. How often do you have a drink containing alcohol?: Never 3. How often do you have six or more drinks on one occasion?: Never Total Score: 0 Score Reviewed/Action Taken: Yes JOEY-7 AMB Questionnaire JOEY-7 Date JOEY - 7 assessed: 11/15/24 Source: Developed by Drs. Jorge Guzman, Madina Hinojosa, Luke Browning and colleagues, with an educational lissy from [employer]. Review of Systems Narrative Review of Systems - General: No fever no chills - Neurological: No headaches no dizziness - Ear nose throat: No sore throat no hearing difficulty no ear pain - Cardiovascular: No syncope, no chest pain, no palpitations - Gastrointestinal: No nausea vomiting or diarrhea - Endocrine: No polyuria polydipsia no heat intolerance - Genitourinary: No dysuria , no blood in urine Physical exam (Primary Care) Vital Signs: Last Vital Signs Pulse 85 08/29/25 10:53 BP 116/58 L 08/29/25 10:53 Pulse Ox 95 08/29/25 10:53 Oxygen Delivery Method Room Air 08/29/25 10:53 BMI result Body Mass Index 25.9 Tobacco/Smoking Status: Tobacco use Status Tobacco use date assessed 08/29/25 08/29/25 11:00 Patient Tobacco Use Status Former Tobacco user 08/29/25 11:00 Tobacco use type Cigarette 08/29/25 11:00 e-Cigarette/Vaping Use Never Used 08/29/25 11:00 Thrive Assessment: Date of Thrive Assessment Date Thrive assessed 11/15/24 08/29/25 11:00 Currently or been in a relationship where the following occur: No concerns reported Narrative Physical Exam General: No acute distress HEENT: No acute findings Neck: Supple Respiratory system: Able to talk in full sentences, no audible wheeze Cardiovascular: S1-S2 regular in rate and rhythm Gastrointestinal: No pain Extremities: Right shoulder pain, limited ROM, possible arthritis, referral to orthopedic SUPPLIER RELATIONSHIP DIRECTOR: Alert awake oriented x3 motor intact Skin: Normal turgor Results AMB Hemoglobin A1c AMB Hemoglobin A1c 7.1 % Last Edit by Carmen Pérez CMA on 08/29/25 11:11 Results Reviewed Results Reviewed: Laboratory Last Values Hgb A1c (Clinic) 7.1 % (4.0-6.0) H 08/29/25 11:02 Coding Level of Care Code Est Pt Level 4 (50173) Add On Problem Visit Only Diagnoses Essential hypertension I10 Hypertension type: essential hypertension Diabetes type 2, controlled E11.9 Pain, joint, shoulder, right M25.511 Diabetic polyneuropathy associated with type 2 diabetes mellitus E11.42 half-way (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 Z79.4 Microcytic anemia D50.9 Back muscle spasm M62.830 Gastroesophageal reflux disease, unspecified whether esophagitis present K21.9 Esophagitis presence: esophagitis presence not specified Vitamin D deficiency E55.9 Constipation by delayed colonic transit K59.01 Assessment & Plan Assessment & Plan (1) Hypertension: Code(s): I10 - Essential (primary) hypertension Category: Medical Qualifiers: Hypertension type: essential hypertension Qualified Code(s): I10 - Essential (primary) hypertension (2) Diabetes type 2, controlled: Code(s): E11.9 - Type 2 diabetes mellitus without complications Category: Medical (3) Pain, joint, shoulder, right: Code(s): M25.511 - Pain in right shoulder Category: Medical (4) Diabetic polyneuropathy associated with type 2 diabetes mellitus: Code(s): E11.42 - Type 2 diabetes mellitus with diabetic polyneuropathy Category: Medical (5) half-way (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: Code(s): Z79.4 - ferry terminal 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 Category: Medical (6) Microcytic anemia: Code(s): D50.9 - Iron deficiency anemia, unspecified Category: Medical (7) Back muscle spasm: Code(s): M62.830 - Muscle spasm of back Category: Medical (8) GERD (gastroesophageal reflux disease): Code(s): K21.9 - Gastro-esophageal reflux disease without esophagitis Category: Medical Qualifiers: Esophagitis presence: esophagitis presence not specified Qualified Code(s): K21.9 - Gastro-esophageal reflux disease without esophagitis (9) Vitamin D deficiency: Code(s): E55.9 - Vitamin D deficiency, unspecified Category: Medical (10) Constipation by delayed colonic transit: Code(s): K59.01 - Slow transit constipation Category: Medical Plan Problem List - Type 2 diabetes mellitus - Iron deficiency anemia - Hypertension - Hyperlipidemia - Arthritis of the right shoulder - Constipation - Gastroesophageal reflux disease (GERD) - Diabetic neuropathy - Allergic rhinitis - History of back spasms - Vitamin D deficiency - Vitamin B12 deficiency Plan - Anemia: Prescribed an iron supplement to be taken daily due to low ferritin and anemia. - Constipation: Prescribed MiraLAX powder to be taken daily as needed. The patient was counseled that iron supplements can cause constipation and was informed that MiraLAX may not be covered by insurance as it is an [id number] product. - Right Shoulder Pain: Referred to an child protective services specialist for further evaluation. The patient's caregiver was given the phone number to schedule the appointment. She was advised that the orthopedist may offer a cortisone injection but that she should avoid activities that aggravate the pain, such as cleaning. - Diabetes Mellitus: Increased Trulicity from 0.75 mg to 1.5 mg weekly as requested by the patient to aid with weight loss. She was counseled on the risk of hypoglycemia with the higher dose. - Medications: The patient will continue all her current medications. Her pharmacy can contact the office for any needed refills. - Follow-up: The patient is scheduled to return for a follow-up visit in three months. Orders: Orders AMB Hemoglobin A1c Today Z13.9 - Encounter for screening, unspecified Referrals Orthopedics Referral M25.511 - Pain in right shoulder Medications: New ferrous sulfate 324 mg PO BID 180 tabs 0RF 90 days polyethylene glycol 3350 (Miralax) 17 grams PO DAILY 1,530 grams 0RF 90 days Changed From dulaglutide (Trulicity) 0.75 mg (0.5 mL) subcut QWEEK 90 days 6.5 mL 2RF E11.29 - Type 2 diabetes mellitus with other diabetic kidney complication, R80.9 - Proteinuria, unspecified, Z79.4 - half-way (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 To dulaglutide 1.5 mg (0.5 mL) subcut QWEEK 6.5 mL 2RF 90 days E11.29 - Type 2 diabetes mellitus with other diabetic kidney complication, R80.9 - Proteinuria, unspecified, Z79.4 - ferry terminal 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
[2025-08-29 10:53] VITALS: BP 116/58; PULSE 85; O2SAT 95; BMI 25.9
--- OUTSIDE RECORDS SUMMARY | 2025-08-29 14:37 | XMS_ITS | Clinical Summary ---
Author Organization [address] Address [address] [place] [phone] Phone Care Team Providers Care Nailing Machine Operator Automatic Name Role Phone Harshad Castle MD Primary Care Provider [phone] Allergies Active Allergy Reactions Criticality Noted Date Comments Iodinated Contrast Media 06/18/2015 SOB Medications gabapentin (NEURONTIN) 100 mg capsule TAKE 2 CAPSULES BY MOUTH TWICE DAILY IN THE MORNING AND EVENING 09/22/19 24 Active cyanocobalamin (VITAMIN B-12) 100 mcg tablet TAKE 1/2 TABLET BY MOUTH EVERY MORNING 03/24/20 24 Active alcohol swabs (Alcohol Prep Pads) pads, medicated Apply 1 Each topically 5 times daily. 12/30/19 24 Active lancets 33 gauge misc Apply 1 Strip topically 4 times daily. 12/30/19 24 Active aspirin 81 mg EC tablet Take 1 Tablet by mouth at bedtime. 03/24/20 24 Active cholecalcifero l (VITAMIN D-3) 25 mcg (1,000 unit) tablet Take 1 tablet (1,000 Units total) by mouth 1 (one) time each day in the morning. 03/24/20 24 Active lisinopriL (PRINIVIL,ZEST RIL) 2.5 mg tablet Take 1 tablet (2.5 mg total) by mouth 1 (one) time each day. 03/24/20 24 Active loratadine (CLARITIN) 10 mg tablet Take 1 tablet (10 mg total) by mouth 1 (one) time each day in the morning. 03/24/20 24 Active metFORMIN (FORTAMET) 500 mg 24 hr tablet Two tabs BID 03/24/20 24 Active omeprazole (PriLOSEC) [address] capsule Take 1 capsule (20 mg total) by mouth 1 (one) time each day in the morning. 03/24/20 Active pioglitazone (ACTOS) 30 mg tablet Take 1 tablet (30 mg total) by mouth 1 (one) time each day. 03/24/20 Active rosuvastatin (CRESTOR) 40 mg tablet Take 1 tablet (40 mg total) by mouth 1 (one) time each day. 03/24/20 Active dulaglutide (Trulicity) 0.75 mg/0.5 mL pen injector injection Inject 0.75 mg into the skin once a week. 01/27/20 Active blood sugar diagnostic (OneTouch Verio test strips) test strip TEST BLOOD SUGAR FOUR TIMES DAILY 12/30/19 Active diclofenac (VOLTAREN) 1 % topical gelIndications :Pain in toes of both feet,Arthritis of both feet APPLY 4 GRAMS TOPICALLY TO AFFECTED AREA(S) TWICE DAILY DIRECTED 200 g 1 08/09/20 Active diclofenac (Voltaren Arthritis Pain) 1 % topical gel Apply 4 g topically 2 (two) times a day. 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 Donna ritter at [facility] Diabetic neuropathy 04/21/2017 BPPV (benign paroxysmal [...] Dr. Donna ritter at [facility] Encounters Date Type Department Care Team Description 08/15/2025 11:15 AM EST Office Visit Orthopedic Surgery - [place] [address] [facility] [address] [place] [phone] Esteban Donato DPM Controlled type 2 diabetes with neuropathy ([facility] V24, [facility] V28) (Primary Dx); Arthritis of both feet; Pain in toes of both feet; Hammertoes of both feet; Dermatophytosis, nail from Last 3 Months Immunizations Immunization Administration Dates Next Due Influenza trivalent, 0.5mL [...] Type 2 diabetes mellitus wit h cataract ([facility] V24, [facility] V28) 06/18/2015 DX:Type 2 diabetes mellitus with cataract ([facility]) BPPV (benign paroxysmal posi tional vertigo) 10/14/2016 DX:BPPV (benign paroxysmal p ositional vertigo) Type 2 diabetes mellitus wit h neurological manifestations, controlled ([facility] V24, [facility] V28) 06/18/2015 DX:Type 2 diabet es mellitus with neurological manifestations, controlled ([facility]) Type 2 diabetes mellitus wit h eye manifestations ([facility] V24, [facility] V28) 04/21/2017 DX:Type 2 diabetes mellitus with eye manifestations ([facility]) Diabetic retinopathy ([facility]/ C V24, [facility] V28) 04/21/2017 DX:Diabetic retinopathy ([facility] ) Diabetic neuropathy ([facility] V24, [facility] V28) 04/21/2017 DX:Diabetic neuropathy ([facility]) Tinnitus aurium, 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 DX:Ti nnitus aurium, [...] on file Sexual Orientation Not on file Last Filed Vital Signs Vital Sign Reading [...] Care Team (Late st Contact Info) Description 10/19/2025 10:15 AM EST Office Visit Orthopedic Surgery - [place] [address] [facility] [address] [place] [phone] Esteban Donato, DPM [address] [facility] [address] [place] [address] Health Maintenance Due Date Last Done Comments [...] Venous blood specimen / Unknown Historical Provider MD LAB BLOOD ORDERABLES Kassidy l Result * Lipid panel (01/04/2024) LDL/HDL Ratio 2 0 - 4 Triglycerides 103 0 - 150 mg/dL Cholesterol 144 0 - 200 mg/dL HDL 88 >=40 mg/dL LDL Cholesterol 36 0 - 100 mg/dL Blood Venous blood specimen / Unknown Historical Provider MD LAB BLOOD ORDERABLES Kassidy [...] (World Health Organization Fracture Risk Assessment) [facility] Department of Internal Medicine recommends using National [...] (World Health Organization Fracture Risk Assessment) [facility] Department of Internal Medicine recommendsusing National Osteoporosis [...] (11/05/2022) Annual BMP Blood Test abstracted Result [facility] Historical Provider HEALTH MAINTENANCE Final Result * Hepatitis C Screening (03/15/2015) Hepatitis C Screening abstarcted Historical Provider HEALTH MAINTENANCE Final Result from Last 3 Months or Most Recently Relevant to Health Maintenance Insurance [facility] [place]ICAID - [place] Care Teams Nailing Machine Operator Automatic Relationship Specialty Start Date End Date Harshad Castle MD [address] [place] [phone] PCP - General Internal Medicine 07/08/24
--- OUTSIDE RECORDS SUMMARY | 2025-08-29 14:37 | XMS_ITS ---
Author Name Michelle Mueller NP Address [address] [place] [address] Phone [phone] [facility] Care Team Providers Care Dry Heat Cabinet Attendant Name Role Phone Ervin Michelle Unavailable [phone] Dpt., [facility] Unavailable Deidra Perez Unavailable [phone] Mari Orellana Unavailable Unavailable JOSH DAILEY Unavailable [phone] Reason for Referral Not Available Allergies, adverse [...] 2022-01-02 No Data Available OneTouch Delica Plus [id number] Miscellaneous TEST BLOOD SUGAR 4 TIMES A [...] MOUTH EVERY MORNING 2024-06-27 No Data Available Vir-Secuch Verio Flex System w/Device Kit TEST BLOOD [...] TAKE 1 TABLET BY [facility] EVERY DAY 2024-11-18 No Data Available Lisinopril 10 mg Tab TAKE 1 TABLET BY MO UTH EVERY MORNING 2024-05-18 2025-02-20 Bisacodyl EC 5 [...] changes ongoing monitoring and management as per certified health education specialist Type 2 diabetes mellitus with diabetic [...] who reports she presented to ER at [facility] on the morning of 11/18/24 after [...] avoid tree fruits until she sees an elementary school professional-Advised to set up appt with PCP to obtain referral to elementary school professional-Rx for benadryl given to member and advised to carry around with her at all time-Advised that if she experiencing another reaction to a fruit like this, she must not wait- take the benadryl and go to the ER immediately-Medical records requested from [facility] Tearfulness Active 2024-11-22 N/A 11/22/24:-memb er [...] Psych contingency plan sent to member via [employer] Other problems related to medical facilities and [...] Contact mental health professional:/ Transfer member to [address] [place] [address]/ Hydroxyzine (Vistaril) 25mg PO q6h PRN anxiety/ Remind member of breathing exercises/ Encourage member to journal feelings/ Limit extra stimulation Encounter for other specified aftercare, Status post fall, Myalgia Active 2025-02-20 N/A 02/20/25:Member p resented to [facility] ER on 02/18/2025 s/p fall.She states [...] the visit as PCP did not provide [place] translation and did not let member inform [...] Service Diagnosis/Co mplaint Medication List Documented (1159F) [facility]20[place] Medication List Documented (1159F) [facility] Medication List Documented (1159F) [facility] Medication List Documented (1159F) [facility] Medication List Documented (1159F) [facility] Medication List Documented (1159F) [facility]2022 Type 2 diabetes mellitus wit h other specified complicationHyperlipidemia, unspecifiedOther specified diabetes mellitus with diabetic polyneuropathyEssential (primary) hypertensionDeficiency of other specified B group vitaminsVitamin D deficiency, unspecified No Data Available [facility] 10[place]29/2022 Noninfective gastroenteritis and colitis, unspecified No Data Available [facility]31/2022 Noninfective gastroenteritis and colitis, unspecified Estab. patient 30-39min; chronic exacerbation, 2 stable chronic or 1 acute illness add add modifier 95 for video, (do not use for phone, instead use 18035-06) [facility]2023 Type 2 diabetes mellitus wit [...] (do not use for phone, instead use 25066-56) [facility] Estab. patient 30-39min; chronic exacerbation, 2 stable chronic or 1 acute illness add add modifier 95 for video, (do not use for phone, instead use 93936-85) [facility]2023 Estab. patient 30-39min; chronic exacerbation, 2 stable chronic or 1 acute illness add add modifier 95 for video, (do not use for phone, instead use 29138-15) [facility]2023 Estab. patient 30-39min; chronic exacerbation, 2 stable chronic or 1 acute illness add add modifier 95 for video, (do not use for phone, instead use 99186-03) [facility]2023 Estab. patient 30-39min; chronic exacerbation, 2 stable chronic or 1 acute illness add add modifier 95 for video, (do not use for phone, instead use 51512-97) [facility] 04[place]2023 Estab. patient 30-39min; chronic exacerbation, 2 stable chronic or 1 acute illness add add modifier 95 for video, (do not use for phone, instead use 97095-52) [facility]2023 Estab. patient 30-39min; chronic exacerbation, 2 stable chronic or 1 acute illness add add modifier 95 for video, (do not use for phone, instead use 82094-90) [facility]2023 Estab. patient 30-39min; chronic exacerbation, 2 stable chronic or 1 acute illness add add modifier 95 for video, (do not use for phone, instead use 69456-72) [facility]2023 Estab. patient 30-39min; chronic exacerbation, 2 stable chronic or 1 acute illness add add modifier 95 for video, (do not use for phone, instead use 72250-33) [facility]2023 Estab. patient 30-39min; chronic exacerbation, 2 stable chronic or 1 acute illness add add modifier 95 for video, (do not use for phone, instead use 79071-03) [facility] [place] 02/17/2024 Type 2 diabetes mellitus wit h [...] (do not use for phone, instead use 90706-16) [facility] 02/17/2024 Estab. patient 30-39min; chronic exacerbation, 2 stable chronic or 1 acute illness add add modifier 95 for video, (do not use for phone, instead use 38868-48) [facility] 02/17/2024 Estab. patient 30-39min; chronic exacerbation, 2 stable chronic or 1 acute illness add add modifier 95 for video, (do not use for phone, instead use 02925-41) [facility]17/[place] Estab. patient 30-39min; chronic exacerbation, 2 stable chronic or 1 acute illness add add modifier 95 for video, (do not use for phone, instead use 03348-31) [facility] [place] 02/17/2024 No Data Available [facility] [place] 03/15/2024 Pain In Right ArmOther probl ems related to medical facilities and other health care Unlisted special service; to be used for medical record reviews and reporting CPTII codes (1111F, etc) [facility] Other specified counseling Unlisted special service; to be used for medical record reviews and reporting CPTII codes (1111F, etc) [facility]20[place] Unlisted special service; to be used for medical record reviews and reporting CPTII codes (1111F, etc) [facility] Estab. patient 10-29min; 1 minor problem; add add modifier 95 for video, modifier 93 for phone [facility]2024 Acute sinusitis, unspecified Estab. patient 10-29min; 1 minor problem; add add modifier 95 for video, modifier 93 for phone [facility]/07[place]20[place] Estab. patient 10-29min; 1 minor problem; add add modifier 95 for video, modifier 93 for phone [facility]/07/20[place] Estab. patient 10-29min; 1 minor problem; add add modifier 95 for video, modifier 93 for phone [facility]/07/2024 Estab. patient 20-29min; [...] 95 for video, modifier 93 for phone [facility] [place] Dizziness and giddiness Estab. patient 10-29min; 1 minor problem; add add modifier 95 for video, modifier 93 for phone [facility] [place]24 Encounter for other specifie d aftercareAllergy, unspecified, subsequent encounterOther symptoms and signs involving emotional stateOther problems related to medical facilities and other health care Estab. patient 10-29min; 1 minor problem; add add modifier 95 for video, modifier 93 for phone [facility] [place] Estab. patient 10-29min; 1 minor problem; add add modifier 95 for video, modifier 93 for phone [facility] [place]/22/2024 Estab. patient 10-29min; 1 minor problem; add add modifier 95 for video, modifier 93 for phone [facility] [place] 02/20/2025 Myalgia, unspecified siteDizziness and giddinessEncounter for other specified aftercareHistory of falling Estab. patient 10-29min; 1 minor problem; add add modifier 95 for video, modifier 93 for phone [facility] [place] 02/20/2025 Estab. patient 10-29min; 1 minor problem; add add modifier 95 for video, modifier 93 for phone [facility] [place] 02/20/2025 Estab. patient 10-29min; 1 minor problem; add add modifier 95 for video, modifier 93 for phone [facility] [place] 04/19/2025 Oth adverse food reactions, not elsewhere classified, initAllergy to other foodsEdema of right upper eyelidEdema of right lower eyelidEdema of left upper eyelidEdema of left lower eyelidPain in throatOther pruritusNasal congestion Estab. patient 10-29min; 1 minor problem; add add modifier 95 for video, modifier 93 for phone [facility] [place] 04/19/2025 [...] tive Time Current Smoking Status Former smoker 2025-08-02 0 Sex Female Gender identity Woman History of [...] (do not use for phone, instead use 47366-68) 65425 2022-06-25 No Data Available No Data Availa ble No Data Available [id number] 2022-10-29 No Data Available No Data Available No Data Available 12603 2022-10-31 No Data Available No Data Available Estab. patient 30-39min; chronic exacerbation, 2 stable chronic or 1 acute illness add add modifier 95 for video, (do not use for phone, instead use 48907-65) 47412 2023-04-21 No Data Available No Data Availa [...] (do not use for phone, instead use 25818-68) 80478 2024-02-17 No Data Available No Data Availa [...] No Data Avail able No Data Available 28242 2024-03-15 No Data Available No Data Available Unlisted special service; to be used for medical record reviews and reporting CPTII codes (1111F, etc) 03957 2024-06-22 No Data Available No Data Availa ble SBP < 130 (3074F) 3074F 2024-06-22 No Data Available No Data Available DBP <80 (3078F) 3078F 2024-06-22 No Data Available No Data Available Estab. patient 10-29min; 1 minor problem; add add modifier 95 for video, modifier 93 for phone 93941 2024-10-07 No Data Available No Data Availa [...] 95 for video, modifier 93 for phone 25569 2024-10-31 No Data Available No Data Availa [...] 95 for video, modifier 93 for phone 83491 2024-11-08 No Data Available No Data Availa ble Estab. patient 10-29min; 1 minor problem; add add modifier 95 for video, modifier 93 for phone 24190 2024-11-22 No Data Available No Data Availa [...] 95 for video, modifier 93 for phone 89495 2025-02-20 No Data Available No Data Availa ble Pain Assessment - Pain Documented on a Pain Scale (1125F) 1125F 2025-02-20 No Data Available No Data Nemo ilable Medication List Documented (1159F) 1159F 2025-02-20 No Data Available No Data Nemo ilable Estab. patient 10-29min; 1 minor problem; add add modifier 95 for video, modifier 93 for phone 13631 2025-04-20 No Data Available No Data Availa [...] 30 mg, Trulicity 0.75mg weeklyfollows with her vice president quality improvement Dr. Craig yearlytakes her blood sugars daily in the Am and typically range in 100-150's was seeing [facility] however they have left and will be [...] modifier 95)Continue to see PCP. Follow-up with [facility] as needed for any acute or disease education needs that may arise 23/03.C/o nausea, vomiting, diarrhea, body aches x 2 daysDenies fever, but feels hot and sweaty.No sick contacts at home.BG 148 - fastingEncouraged fluids - pedialyte, gatorade and tylenol for aches. bland diet, nothing spicy or acidic. Will send in [employer]. F/U scheduled for 10/31/22 with [facility] [...] 30 mg, Trulicity 0.75mg weeklyfollows with her vice president quality improvement Dr. Craig yearlytakes her blood sugars daily in the Am and typically range in 100-150's was seeing [facility] however they have left and will be establishing her diabetic care with her PCP [facility] Update 04/21/23:Follows up with PCP every 3 months. Last visit 03/17/23.Follows up with Supervisor Winter, next appt 05/08/23. Last A1C reported by [...] record (1158F)Continue to see PCP. Follow-up with [facility] as needed for any acute or disease education needs that may arise 23/03.11/22/24:I spoke with member who reports she presented to ER at [facility] on the morning of 11/18/24 after [...] avoid tree fruits until she sees an elementary school professional-Advised to set up appt with PCP to obtain referral to elementary school professional-Rx for benadryl given to member and advised to carry around with her at all time-Advised that if she experiencing another reaction to a fruit like this, she must not wait- take the benadryl and go to the ER immediately-Medical records requested from [facility]11/22/24:-member became suddenly tearful towards end of [...] Contact mental health professional:/ Transfer member to [address] [place] [address]/ Hydroxyzine (Vistaril) 25mg PO q6h PRN anxiety/ [...] education needs that may arise.02/20/25:Member presented to [facility] ER on 02/18/2025 s/p fall.She states [...] the visit as PCP did not provide [place] translation and did not let member inform [...] to follow up for new or worsening /11/2025Start Meclizine 12.5 mg q 6 hours as [...] questions or concerns. Discussed how to contact [facility] via phone or tablet. BRANDIE 23/03 [...]
--- OUTSIDE RECORDS SUMMARY | 2025-08-29 14:37 | XMS_ITS | Patient Health Record ---
Author Organization [facility] Address [address] [place] [address] Care Team Providers Care Park Interpretive Specialist Name Role Phone Mustapha Phelps MD Primary Care Provider Jorge Reed [phone] Allergies Allergen (clinical drug ingredient) Drug/Non Drug Allergy documented on EMR Reaction Allergy Type Onset Date Status IVP Dye (uncoded) Unknown Allergy Ac tive Reason For Referral No Information Medications Medication SIG (Take, Route, Frequency, Duration) Notes Start Date End Date Status Lantus 100 UNIT/ML Solution Subcutaneous Active Aspir-81 81mg Active metFORMIN HCl 500mg Active NovoLOG FlexPen 100 UNIT/ML Solution Pen-injector Subcutaneous Active Lisinopril 10 MG Tablet Orally Active Crestor 20mg Active Omeprazole 20mg Acti ve Loratadine 10 MG Tablet 1 tablet Orally Once a day Active Ferrous Sulfate 325 (65 Fe) MG Tablet 1 tablet Orally Once a day Active MiraLax Miralax Powder 1 capful in 8 ounces of water qd-bid for constipation Orally once or twice a day as needed for constipation; Duration: 30 days 06/24/2011 Not-Taking/PRN Social History Social History Additional Details Category Social Info Options Details Miscellaneous: Marital status: Occupation: retired Section Notes: No alcohol nor smoking No alcohol nor smoking Problems Problem Type SNOMED Code ICD Code Onset Dates Problem Status W/U Status Risk Notes Problem Gastroesophageal reflux disease without esophagitis (157704926) Gastroesophageal reflux disease without esophagitis (K21.9) Active confirmed Problem Iron deficiency anemia (43528130) Other iron deficiency anemia (D50.8) Active confirmed Plan Of Treatment Future Test Test Name Order Date UPPER GI ENDOSCOPY 11/22/2014 COLONOSCOPY 11/22/2014 Insurance Providers Payer Name Payer Address Payer Phone Subscriber Number Group Number Insured Name Patient Relationship to Insured Coverage Start Date Coverage End Date [facility] [address] [address] [place] [address] [phone] [id number] MANISH YOO Self - patient is the [...] esophagus hypertension she denies any history of [place], stroke, rubina ng disease, nor kidney disease [...]
== END 2025-08-29 11:42 | disposition home or self-care (01) ==
LOC: HO.HMCC 10:50
PROVIDERS: PCP Internal Medicine; Visit Provider Internal Medicine
DX: I10 Essential (primary) hypertension (principal); M25.511 Pain in right shoulder; E11.42 Type 2 diabetes mellitus with diabetic polyneuropathy; Z79.4 Long term (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; D50.9 Iron deficiency anemia, unspecified; M62.830 Muscle spasm of back; K21.9 Gastro-esophageal reflux disease without esophagitis; E55.9 Vitamin D deficiency, unspecified; K59.01 Slow transit constipation; Z13.9 Encounter for screening, unspecified

== ENCOUNTER → 2025-08-29 10:49 | Outpatient (BNVA) | payer MEDICARE, SELFPAY | PROVIDERS: PCP Internal Medicine; Visit Provider Internal Medicine | DX: I10 Essential (primary) hypertension (principal); M25.511 Pain in right shoulder; E11.42 Type 2 diabetes mellitus with diabetic polyneuropathy; D50.9 Iron deficiency anemia, unspecified; M62.830 Muscle spasm of back; K21.9 Gastro-esophageal reflux disease without esophagitis; K59.01 Slow transit constipation; E55.9 Vitamin D deficiency, unspecified; Z79.4 Long term (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 | CPT/HCPCS: 83036; 99212 ==